=== PATIENT | female | born 1970 | race Caucasian/White ===

== ENCOUNTER 2020-03-01 14:36 | Emergency (ER) | payer SELFPAY ==
[2020-03-01 14:37] VITALS: BP 137/88; PULSE 94; RESP 18; TEMP 36.8; O2SAT 96; BMI 36.6
--- NOTE | 2020-03-01 14:44 | XR_ITS ---
WS: [id number] Lumbar spine, 3 views, 03/01/2020 Clinical Data: fall, back pain Comparison: None. Findings: No compression fractures or subluxation is seen. No disc space narrowing is seen. The transverse proc esses and SI joints are normal. There is minimal osteoarthritic spurring from L3 through L5. XR/XR lumbar spine 2-3V* [id number] Impression: Minimal osteoarthritis from L3 through L5.
--- NOTE | 2020-03-01 14:44 | XR_ITS ---
WS: [id number] Thoracic spine, 3 views, 03/01/2020 Clinical Data: fall, back pain Comparison: None. Findings: No compression fractures are seen. The disc heights are normal. The paravertebral regions are normal. XR/XR thoracic spine 3V* [id number] Impression: Negative thoracic spine.
--- NOTE | 2020-03-01 14:44 | XR_ITS ---
WS: [id number] Cervical spine, 4 views, 03/01/2020 Clinical Data: fall, neck pain Comparison: None. Findings: No compression fractures are seen. There is degenerative disc narrowing at C4-C5, C5-C6 and C6-C7. There is anterior osteoarthritic spurring from C3 through C7. There is loss of the normal pb dotic curvature.. There is no prevertebral soft tissue swelling. The odontoid is unremarkable. The so ft tissues of the neck and the lung apices are normal. XR/XR cervical spine 3V* [id number] Impression: 1. Osteoarthritis from C3 through C7. 2. Degenerative disc narrowing from C3 C4-C5 to C6-C7.
[2020-03-01 17:09] VITALS: BP 143/84; PULSE 92; RESP 18; O2SAT 98
--- NOTE | 2020-03-01 20:32 | W.ED.FALL ---
HPI - Fall General: Chief Complaint: Fall Stated Complaint: fell Time Seen by Provider: 03/01/20 16:59 History of Present Illness: HPI Narrative: Patient states that that she stepped in a hole on and fell and her neck is been sore since then. She is visiting from out of town. Has not been able see her primary care provider. Denies any radiculopathy. complaint: fall Onset (ago): day(s) Fall from: standing Fall witnessed: no Place fall occurred: other (Family residence) Loss of consciousness: None Prolonged down time: no Symptoms prior to fall: none Context: tripped/slipped Location of injury: neck Severity: mild Severity scale (1-10): 2 Quality: aching Associated symptoms-after fall: Reports no associated symptoms and neck pain (After falling on denies any pain or tingling to her fingers); Denies abdominal pain, chest pain or headache(s) Review of Systems Const: Denies: fever(s), chills or body aches Eyes: Denies: change in vision or blurry vision ENMT: Denies: throat pain or nasal congestion Card: Denies: chest pain or dyspnea on exertion Resp: Denies: dyspnea, productive cough or non-productive cough GI: Denies: abdominal pain, nausea or vomiting Musc: Reports: neck pain (After falling on denies any pain or tingling to her fingers); Denies: extremity pain Skin/Breast: Denies: rash Neuro: Denies: headache(s) Psych: Denies: anxiety or depression Zackery/Lymph: Denies: easy bruising Physical Exam Const: COMMON NORMALS: no acute distress, average body habitus and patient oriented x3 HENMT: COMMON NORMALS: normocephalic HEAD & SCALP: normal to inspection and normocephalic FACE & SINUS: normal facial exam Eye: COMMON NORMALS: conjunctivae normal GENERAL EYE: appearance normal, both eyes and all related structures CONJUNCTIVA: Yes conjunctivae normal Neck/C-Spine: COMMON NORMALS: no JVD GENERAL: Yes normal visual inspection CERVICAL SPINE: Yes cervical ROM normal, Yes normal cervical lordosis and Yes Paracervical muscle tenderness Chest: COMMONS NORMALS: normal inspection of the chest Resp: COMMON NORMALS: normal respiratory effort and clear to auscultation bilaterally AUSCULTATION: clear to auscultation bilaterally Cardio: COMMON NORMALS: no JVD, regular rate and regular rhythm RATE: regular rate RHYTHM: regular rhythm GI: COMMON NORMALS: Normal to inspection, nondistended, normoactive bowel sounds present Extremity: COMMON NORMALS: normal to inspection and full ROM Neuro: COMMON NORMALS: patient oriented x3 Course Vital Signs: Vital signs: Vital Signs Temperature 98.2 F 03/01/20 14:37 Pulse Rate 92 03/01/20 17:09 Respiratory Rate 18 03/01/20 17:09 Blood Pressure 143/84 03/01/20 17:09 Pulse Oximetry 98 03/01/20 17:09 Discharge Plan Discharge Patient Disposition: Home Clinical Impression: Neck pain Condition: Stable Prescriptions: New Celebrex 100 mg capsule 100 mg PO BID Qty: 14 RF: 0 Discharge Orders: Discharge ED (Routine); Ordered 03/01/20 Ordered By: Win Lezama Discharge Diet: Usual diet Discharge Activity: Increase activity as tolerated Patient Instructions: Cervical Sprain (ED) Activity Restrictions/Additional Instructions: follow up with your primary care provider if no iprovement in next few days. Take medicine as directed. apply ice to area as directed. Coding Level of Care Code ED Driver License Reviewing Officer for Karol Esparza
== END 2020-03-01 17:09 | disposition home or self-care (01) ==
PROVIDERS: Emergency Provider Nurse Practitioner Family
DX: M54.2 Cervicalgia (principal)
CPT/HCPCS: 12345; 72040; 72072; 72100; 99281; 99283

== ENCOUNTER 2020-10-16 20:55 | Emergency (ER) | payer SELFPAY ==
[2020-10-16 21:01] VITALS: BP 126/84; PULSE 85; RESP 18; TEMP 36.2; O2SAT 98; BMI 36.6
--- NOTE | 2020-10-16 21:08 | W.ED.EAR ---
HPI - Ear Problem General: Chief complaint: Ear Stated complaint: dizzy, ear pain Time Seen by Provider: 10/16/20 21:08 History of Present Illness: HPI Narrative: Patient comes in today with complaints of ear pain, dizziness, and sinus pressure. Patient reports illness for 2 to 3 days. Patient denies any exposure to COVID-19. Patient had only been in the area for the last 10 months and she is moved from the [place] area. Patient appears no acute distress. Patient appears mildly unwell. Patient's appears in mild pain. Associated symptoms: Reports ear or mastoid pain Review of Systems General: Reports: 10 or more systems reviewed and unremarkable except in HPI and below ENMT: Reports: ear or mastoid pain Physical Exam Const: COMMON NORMALS: no acute distress and patient oriented x3 GENERAL APPEARANCE: cooperative HENMT: COMMON NORMALS: normocephalic and Normal external nose present HEAD & SCALP: normal to inspection and normocephalic NOSE: Normal external nose present and Nasal discharge present TYMPANIC MEMBRANE: TM abnormal TM laterality: bilateral dull MOUTH: Normal oral and palatal mucosa present THROAT: posterior oropharynx normal Eye: GENERAL EYE: appearance normal, both eyes and all related structures Neck/C-Spine: COMMON NORMALS: full ROM Lymph: LYMPHATIC: no lymphadenopathy noted Chest: COMMONS NORMALS: normal inspection of the chest Resp: COMMON NORMALS: normal respiratory effort EFFORT & INSPECTION: Yes able to speak in complete sentences Cardio: COMMON NORMALS: regular rate and regular rhythm RATE: regular rate RHYTHM: regular rhythm GI: COMMON NORMALS: non-tender Extremity: COMMON NORMALS: normal to inspection Neuro: COMMON NORMALS: patient oriented x3 and moves all extremities Psych: COMMON NORMALS: mental status grossly normal and cooperative Skin: COMMON NORMALS: no rashes or lesions noted GENERAL SKIN EXAM: no rashes or lesions noted Course Vital Signs: Vital signs: Vital Signs Temperature 97.1 F L 10/16/20 21:01 Pulse Rate 85 10/16/20 21:01 Respiratory Rate 18 10/16/20 21:01 Blood Pressure 126/84 10/16/20 21:01 Pulse Oximetry 98 10/16/20 21:01 MDM - Ear MDM Narrative: Medical decision making narrative: 50-year-old female comes in with ear pain, sinus pressure, and nasal drainage for about 3 days. Patient appears mildly unwell but not toxic. On exam bilateral tympanic membranes have fluid behind them and a dull. Patient's nasal passages has congestion in it. Posterior pharynx slightly erythematous. Lungs are clear to auscultation. Vital signs are normal. Differential diagnosis includes but not limited to rhinosinusitis, otitis serous, otitis media, COVID-19. Offered a COVID-19 test patient she refused. We will treat patient for rhinosinusitis with otitis serous. Patient reports understanding of care plan and need for follow-up or return to the ER. Discharge Plan Discharge Patient Disposition: Home Clinical Impression: Acute rhinosinusitis Otitis media, acute serous Qualifiers: Laterality: bilateral Recurrence: not specified as recurrent Qualified Code(s): H65.03 - Acute serous otitis media, bilateral Acute otalgia Qualifiers: Laterality: bilateral Qualified Code(s): H92.03 - Otalgia, bilateral Condition: Stable Prescriptions: New Augmentin 875-125 mg tablet 1 tab PO BID Qty: 14 RF: 0 Flonase Allergy Relief 50 mcg/actuation spray,suspension 1 spray intranasal BID Qty: 16 RF: 0 meclizine 25 mg tablet 25 mg PO TID PRN (Reason: dizziness) Qty: 14 RF: 0 hydrocodone-acetaminophen 5-325 mg tablet 1 tab PO Q8H PRN (Reason: pain (scale score 7-10)) Qty: 5 RF: 0 No Action Celebrex 100 mg capsule 100 mg PO BID Qty: 14 RF: 0 Discharge Orders: Discharge ED (Routine); Ordered 10/16/20 Ordered By: Rudy Floyd Discharge Diet: Usual diet Discharge Activity: Increase activity as tolerated Patient Instructions: Earache (ED), Opioid Safety Activity Restrictions/Additional Instructions: Drink plenty of fluids of medications. Take antibiotics as directed. Use meclizine and Flonase to help with dizziness and sinus pain. Follow-up with primary care as needed. Return to the ER for new concerns. We have done a send out COVID-19 test for further evaluation of your symptoms to rule out COVID-19. Coding Level of Care Code ED Poultry Scalder for Karol Esparza
[2020-10-16] MEDS: HYDROcodone-acetaminophen 5-325 mg Tablet 1 TAB PO (21:36)
[2020-10-16] MEDS: meclizine 25 mg tablet PO (21:36)
[2020-10-16] MEDS: amoxicillin-clav 875-125 mg Tablet 1 TAB PO (21:36)
[2020-10-16 21:37] VITALS: BP 128/82; PULSE 64; RESP 16; O2SAT 96
== END 2020-10-16 21:48 | disposition home or self-care (01) ==
LOC: ER 21:34
PROVIDERS: Emergency Provider Nurse Practitioner Family
DX: J32.9 Chronic sinusitis, unspecified (principal); H65.03 Acute serous otitis media, bilateral
CPT/HCPCS: 99283; J8597

== ENCOUNTER 2021-04-02 17:53 | Observation (INO) | payer MEDICAID, SELFPAY ==
[2021-04-02 18:06] VITALS: BP 143/88; PULSE 134; RESP 24; TEMP 36.6; O2SAT 97; BMI 45.7
--- NOTE | 2021-04-02 18:08 | XRR_ITS ---
PROCEDURE INFORMATION: Exam: XR Chest Exam date and time: 04/02/2021 6:08 PM Age: 51 years old Clinical indication: Chest wall pain; Additional info: Chest pain TECHNIQUE: Imaging protocol: XR of the chest. Views: 1 view. COMPARISON: CR XR thoracic spine 3V* [id number] 03/01/2020 2:51 PM FINDINGS: Lungs: Lungs are clear bilaterally. Pleural spaces: No pleural effusion. No pneumothorax. Heart/Mediastinum: Stable mild enlargement of the cardiac silhouette. Mediastinal contours are unremarkable. Bones/joints: Unremarkable for age. XR/XR chest 1V portable [id number] IMPRESSION: 1. No acute cardiopulmonary process. 2. Incidental/nonacute findings are listed in the report.
--- NOTE | 2021-04-02 18:08 | ECG_ITS ---
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 Measurements Intervals [place] Rate: 166 P: NV: QRS: 6 QRSD: 84 T: 66 QT: 266 QTc: 442 Interpretive Statements ATRIAL FIBRILLATION WITH RAPID VENTRICULAR RESPONSE MODERATE ST DEPRESSION [0.05+ mV ST DEPRESSION] CRITICAL TEST RESULT No previous ECG available for comparison Electronically Signed On 04-02-2021 20:53:45 MANAGER INFORMATION by Des Sánchez M.D. [id number]
[2021-04-02] MEDS: metoprolol tartrate 50 mg Tablet PO ×2 (18:23→20:40)
[2021-04-02] MEDS: sodium chloride 0.9% 1,000 ML 999 ML IV ×3 (18:23→20:20)
[2021-04-02] MEDS: metoprolol tartrate 1 mg/1 mL SDV 5 mL 10 MG IVP (18:23)
[2021-04-02] MEDS: LORazepam 2 mg/mL INJ 1 mL IVP (18:30)
[2021-04-02] MEDS: esmolol drip 2,500 MG/250 ML PREMIX 102.06 MG IV (18:30)
[2021-04-02] MEDS: metoprolol tartrate 1 mg/1 mL SDV 5 mL 5 MG IVP ×2 (18:35→20:45)
[2021-04-02 18:48] LABS: Basophils # 0.1 10^3/uL (0.0-0.1); Basophils % 0.6 %; Eosinophils # 0.1 10^3/uL (0.0-0.8); Eosinophils % 1.2 %; Hematocrit 47.6 % (37.0-47.0); Hemoglobin 14.9 g/dL (11.5-15.3); Lymphocytes # 2.6 10^3/uL (0.8-4.8); Lymphocytes % 23.3 %; Mean Corpuscular HGB Conc 31.3 g/dL (30.0-36.0); Mean Corpuscular Volume 86.4 fl (81-99); Mean Platelet Volume 10.4 fL (7.4-10.4); Monocytes # 0.7 10^3/uL (0.2-0.9); Monocytes % 6.1 %; Neutrophils # 7.73 10^3/uL (1.8-7.7); Neutrophils % 68.5 %; Nucleated Red Blood Cells % 0 %; Platelet Count 294 10^3/cmm (130-400); Red Blood Count 5.51 10^6/uL (4.1-5.3); Red Cell Distribution Width 13.9 % (12.1-15.1); White Blood Count 11.3 10^3/uL (4.0-10.0)
[2021-04-02] MEDS: magnesium sulfate premix 2 GM/50 ML PIGGYBACK IV (18:50)
[2021-04-02 19:01] VITALS: BP 101/77; PULSE 123; RESP 26; O2SAT 96
[2021-04-02] MEDS: digoxin 250 mcg/ml INJ 2 mL IVP (19:01)
--- NOTE | 2021-04-02 19:18 | PC.NURSE ---
REPORT GIVEN TO JOSE JUAN ZAVALETA ASSUMED CARE.
[2021-04-02 19:24] LABS: Troponin(5th) Baseline 9 ng/L (0-10)
[2021-04-02 19:40] LABS: Alanine Aminotransferase 26 U/L (0-33); Albumin Level 4.7 g/dL (3.5-5.2); Alkaline Phosphatase 96 IU/L (35-105); Anion Gap 16.1 (5-19); Aspartate Amino Transferase 29 U/L (0-32); Blood Urea Nitrogen 14 mg/dL (6-20); Calcium 9.5 mg/dL (8.5-10.5); Carbon Dioxide 25 mmol/L (22-29); Chloride 102 mmol/L (98-107); Globulin 2.2 g/dL (1.3-4.6); Glucose 136 mg/dL (65-115); Osmolality Calculated 291 mOsm/kg (285-295); Potassium 4.1 mmol/L (3.5-5.1); Sodium 139 mmol/L (136-145); Thyroid Stimulating Hormone 3.29 uIU/mL (0.27-4.20); Total Bilirubin 0.2 mg/dL (0.15-1.2); Total Protein 6.9 g/dL (6.6-8.7)
--- NOTE | 2021-04-02 20:08 | ECG_ITS ---
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 Measurements Intervals [place] Rate: 87 P: NV: QRS: 9 QRSD: 84 T: 21 QT: 328 QTc: 396 Interpretive Statements ATRIAL FIBRILLATION ABNORMAL RHYTHM ECG Compared to ECG 04/02/2021 18:09:41 ST (T wave) deviation no longer present Electronically Signed On 04-03-2021 19:49:24 SKEIN BLEACHER by Ivone Blancas M.D. [id number]
[2021-04-02 20:13] LABS: D Dimer 0.43 ug/mIFEU (0-0.59)
--- NOTE | 2021-04-02 20:28 | ED_ITS ---
HPI - Chest Pain General: Chief Complaint: Chest Pain Stated Complaint: Chest Pain Time Seen by Provider: 04/02/21 18:18 Course Vital Signs: Vital signs: Vital Signs Temperature 97.8 F 04/02/21 18:06 Pulse Rate 102 H 04/02/21 21:22 Respiratory Rate 18 04/02/21 21:22 Blood Pressure 100/61 04/02/21 21:22 Pulse Oximetry 99 04/02/21 21:22 MDM - Chest Pain Lab Data : 04/02/21 18:15 04/02/21 18:15 Radiology Impressions Chest X-Ray 04/02/21 18:08 IMPRESSION: 1. No acute cardiopulmonary process. 2. Incidental/nonacute findings are listed in the report. Laboratory Results WBC 11.3 10^3/uL (4.0-10.0) H 04/02/21 18:15 RBC 5.51 10^6/uL (4.1-5.3) H 04/02/21 18:15 Hgb 14.9 g/dL (11.5-15.3) 04/02/21 18:15 Hct 47.6 % (37.0-47.0) H 04/02/21 18:15 MCV 86.4 fl (81-99) 04/02/21 18:15 MCH 27.0 pg (28.0-34.0) L 04/02/21 18:15 MCHC 31.3 g/dL (30.0-36.0) 04/02/21 18:15 RDW 13.9 % (12.1-15.1) 04/02/21 18:15 Plt Count 294 10^3/cmm (130-400) 04/02/21 18:15 MPV 10.4 fL (7.4-10.4) 04/02/21 18:15 Neut % (Auto) 68.5 % 04/02/21 18:15 Lymph % (Auto) 23.3 % 04/02/21 18:15 [place] % (Auto) 6.1 % 04/02/21 18:15 Eos % (Auto) 1.2 % 04/02/21 18:15 Baso % (Auto) 0.6 % 04/02/21 18:15 Neut # (Auto) 7.73 10^3/uL (1.8-7.7) H 04/02/21 18:15 Lymph # (Auto) 2.6 10^3/uL (0.8-4.8) 04/02/21 18:15 [place] # (Auto) 0.7 10^3/uL (0.2-0.9) 04/02/21 18:15 Eos # (Auto) 0.1 10^3/uL (0.0-0.8) 04/02/21 18:15 Baso # (Auto) 0.1 10^3/uL (0.0-0.1) 04/02/21 18:15 Nucleated RBC % (auto) 0 % 04/02/21 18:15 Nucleated RBCs # 0.0 /100WBC 04/02/21 18:15 D-Dimer 0.43 ug/mIFEU (0-0.59) 04/02/21 19:08 Sodium 139 mmol/L (136-145) 04/02/21 18:15 Potassium 4.1 mmol/L (3.5-5.1) 04/02/21 18:15 Chloride 102 mmol/L (98-107) 04/02/21 18:15 Carbon Dioxide 25 mmol/L (22-29) 04/02/21 18:15 Anion Gap 16.1 (5-19) 04/02/21 18:15 BUN 14 mg/dL (6-20) 04/02/21 18:15 Creatinine 0.8 mg/dL (0.5-0.9) 04/02/21 18:15 GFR Calculation 75.0 mL/min (90-130) L 04/02/21 18:15 Glucose 136 mg/dL (65-115) H 04/02/21 18:15 Calculated Osmolality 291 mOsm/kg (285-295) 04/02/21 18:15 Calcium 9.5 mg/dL (8.5-10.5) 04/02/21 18:15 Total Bilirubin 0.2 mg/dL (0.15-1.2) 04/02/21 18:15 AST 29 U/L (0-32) 04/02/21 18:15 ALT 26 U/L (0-33) 04/02/21 18:15 Alkaline Phosphatase 96 IU/L (35-105) 04/02/21 18:15 Troponin T Baseline 9 ng/L (0-10) 04/02/21 18:15 Total Protein 6.9 g/dL (6.6-8.7) 04/02/21 18:15 Albumin 4.7 g/dL (3.5-5.2) 04/02/21 18:15 Globulin 2.2 g/dL (1.3-4.6) 04/02/21 18:15 TSH 3.29 uIU/mL (0.27-4.20) 04/02/21 18:15 Urine Opiates Screen Negative ng/mL (Negative) 04/02/21 20:07 Ur Barbiturates Screen Negative ng/mL (Negative) 04/02/21 20:07 Ur Phencyclidine Scrn Negative ng/mL (Negative) 04/02/21 20:07 Ur Amphetamines Screen Negative ng/mL (Negative) 04/02/21 20:07 U Benzodiazepines Scrn Positive ng/mL (Negative) H 04/02/21 20:07 Urine Cocaine Screen Negative ng/mL (Negative) 04/02/21 20:07 U Marijuana (THC) Screen Negative ng/mL (Negative) 04/02/21 20:07 Discharge Plan Discharge Patient Disposition: Admitted As Inpatient Clinical Impression: Atrial fibrillation with RVR Condition: Stable Coding Level of Care Code ED Bench Worker Hollow Handle for Karol Esparza
[2021-04-02 20:31] VITALS: BP 98/75; PULSE 125; RESP 23; O2SAT 98
[2021-04-02 20:32] LABS: Amphetamines Screen Urine Negative (Negative); Barbiturates Screen Urine Negative (Negative); Benzodiazepines Screen Urine Positive (Negative); Cocaine Screen Urine Negative (Negative); Opiate Screen Urine Negative (Negative); PCP Screen Urine Negative (Negative); THC Screen Urine Negative (Negative)
[2021-04-02 21:22] VITALS: BP 100/61; PULSE 102; RESP 18; O2SAT 99
--- NOTE | 2021-04-02 21:42 | ED_ITS ---
HPI - General Adult General: Chief complaint: ER Hold Stated complaint: Chest Pain Time Seen by Provider: 04/02/21 18:18 History of Present Illness: Patient is a 51-year-old female with history of atrial fibrillation presented to emergency room with concerns of palpitation lightheadedness. Patient called EMS earlier today was noted to be have an irregular heart rate in the 180s. Patient complains of mild chest pressure with a fast heart rate. She also reports shortness of breath. Denies any nausea/vomiting, fever/chills, sharp chest pain, focal weakness in the arms or legs, or other complaints at this time. Patient reports in the past he had she has had atrial fibrillation but never heart rate in this fast. This happened about an hour ago. Denies any thyroid history, history of VTE's in the past, unilateral leg swelling or leg pain, or any recent drug use. Onset: 1 hr ago Duration:1 hr Location:home Severity:severe Associated symptoms: Reports malaise; Deny chest pain, dyspnea, nausea, rash, palpitations or vomiting Review of Systems Const: Reports: fatigue and malaise; Denies: fever(s) or chills Eyes: Denies: change in vision ENMT: Denies: mouth pain Card: Denies: chest pain or palpitations Resp: Denies: dyspnea or non-productive cough GI: Denies: abdominal pain, nausea, vomiting or diarrhea : Denies: dysuria Musc: Denies: extremity pain Skin/Breast: Denies: rash or new lesions Neuro: Reports: other (+light-headedness); Denies: weakness in extremities Psych: Reports: other (Normal mood) Zackery/Lymph: Denies: easy bruising PFSH ED PFSH: Medical History (Updated 04/05/21 @ 00:00 by ) Acute exacerbation of CHF (congestive heart failure) Atrial fibrillation with RVR High level of cardiac marker HTN (hypertension) with goal to be determined Family History (Updated 04/02/21 @ 22:49 by Ambrocio Kelley MD) Sister CAD (coronary artery disease) Stroke Social History (Updated 04/02/21 @ 22:03 by Abel Jacobs MD) Smoking and tobacco status: never smoked Alcohol intake: never Physical Exam Const: COMMON NORMALS: alert HENMT: COMMON NORMALS: atraumatic HEAD & SCALP: atraumatic MOUTH: moist mucous membranes not abnormal Eye: COMMON NORMALS: EOMs intact bilaterally and conjunctivae normal CONJUNCTIVA: Yes conjunctivae normal Neck/C-Spine: COMMON NORMALS: full ROM and supple Resp: COMMON NORMALS: normal respiratory effort and clear to auscultation bilaterally AUSCULTATION: clear to auscultation bilaterally Cardio: RATE: Other (irregular irregular tachycadia) GI: COMMON NORMALS: Soft to palpation and non-tender PALPATION: Yes Soft to palpation Extremity: COMMON NORMALS: full ROM Neuro: SENSORIUM/ORIENTATION: Yes alert MOTOR EXAM: No Abnormal motor strength present and Other motor observations present (no focal motor deficits) Psych: COMMON NORMALS: speech normal SPEECH: Yes normal speech MOOD & AFFECT: Yes euthymic mood Course Vital Signs: Vital signs: Vital Signs Temperature 98.1 F 04/03/21 17:29 Pulse Rate 87 04/04/21 14:36 Respiratory Rate 14 04/04/21 14:36 Blood Pressure 118/88 04/04/21 14:36 Pulse Oximetry 98 04/04/21 14:36 [facility] - General Adult Medical Decision Making 51-year-old female history of atrial fibrillation presents emergency room with concerns of palpitation and mild chest pain. Patient is noted to be in atrial fibrillation with heart rates in the 190s to 200s on arrival. Blood pressure appears to be sustained. Initial arrival, patient received 50 mg of IV metoprolol 50 mg of p.o. metoprolol and 3 L of fluid with and with mild improvement in heart rate to the 140s. Patient was eventually started on esmolol drip and eventually titrated to 300 mcg/kg/min. Patient also received diltiazem boluses with significant improvement in heart rate. Patient is currently off of the esmolol drip. Patient is found to have heart rates between 80-110 currently. Patient received multiple doses of Ativan for anxiety. D-dimer appears to be within normal limit. TSH/ free T4 within normal limit. Urine drug screen is negative except for benzos which was given earlier today. Delta troponin > 30 likely demand-related. Repeat EKG is non ischemic. Will be admitted for observation. Disposition: observation Lab Data : 04/04/21 06:45 04/02/21 18:15 Radiology Impressions Chest X-Ray 04/02/21 18:08 IMPRESSION: 1. No acute cardiopulmonary process. 2. Incidental/nonacute findings are listed in the report. Laboratory Results WBC 11.3 10^3/uL (4.0-10.0) H 04/02/21 18:15 RBC 5.51 10^6/uL (4.1-5.3) H 04/02/21 18:15 Hgb 14.9 g/dL (11.5-15.3) 04/02/21 18:15 Hct 47.6 % (37.0-47.0) H 04/02/21 18:15 MCV 86.4 fl (81-99) 04/02/21 18:15 MCH 27.0 pg (28.0-34.0) L 04/02/21 18:15 MCHC 31.3 g/dL (30.0-36.0) 04/02/21 18:15 RDW 13.9 % (12.1-15.1) 04/02/21 18:15 Plt Count 294 10^3/cmm (130-400) 04/02/21 18:15 MPV 10.4 fL (7.4-10.4) 04/02/21 18:15 Neut % (Auto) 68.5 % 04/02/21 18:15 Lymph % (Auto) 23.3 % 04/02/21 18:15 [place] % (Auto) 6.1 % 04/02/21 18:15 Eos % (Auto) 1.2 % 04/02/21 18:15 Baso % (Auto) 0.6 % 04/02/21 18:15 Neut # (Auto) 7.73 10^3/uL (1.8-7.7) H 04/02/21 18:15 Lymph # (Auto) 2.6 10^3/uL (0.8-4.8) 04/02/21 18:15 [place] # (Auto) 0.7 10^3/uL (0.2-0.9) 04/02/21 18:15 Eos # (Auto) 0.1 10^3/uL (0.0-0.8) 04/02/21 18:15 Baso # (Auto) 0.1 10^3/uL (0.0-0.1) 04/02/21 18:15 Nucleated RBC % (auto) 0 % 04/02/21 18:15 Nucleated RBCs # 0.0 /100WBC 04/02/21 18:15 D-Dimer 0.43 ug/mIFEU (0-0.59) 04/02/21 19:08 Sodium 139 mmol/L (136-145) 04/02/21 18:15 Potassium 4.1 mmol/L (3.5-5.1) 04/02/21 18:15 Chloride 102 mmol/L (98-107) 04/02/21 18:15 Carbon Dioxide 25 mmol/L (22-29) 04/02/21 18:15 Anion Gap 16.1 (5-19) 04/02/21 18:15 BUN 14 mg/dL (6-20) 04/02/21 18:15 Creatinine 0.8 mg/dL (0.5-0.9) 04/02/21 18:15 GFR Calculation 75.0 mL/min (90-130) L 04/02/21 18:15 Glucose 136 mg/dL (65-115) H 04/02/21 18:15 Estimat Average Glucose 128 04/02/21 18:15 Hemoglobin A1c 6.1 % (4.0-6.0) H 04/02/21 18:15 Calculated Osmolality 291 mOsm/kg (285-295) 04/02/21 18:15 Calcium 9.5 mg/dL (8.5-10.5) 04/02/21 18:15 Magnesium 2.0 mg/dL (1.7-2.3) 04/02/21 18:15 Total Bilirubin 0.2 mg/dL (0.15-1.2) 04/02/21 18:15 AST 29 U/L (0-32) 04/02/21 18:15 ALT 26 U/L (0-33) 04/02/21 18:15 Alkaline Phosphatase 96 IU/L (35-105) 04/02/21 18:15 Troponin T Baseline 9 ng/L (0-10) 04/02/21 18:15 Troponin T 120 Minute 39.02 ng/L (0-10) H 04/02/21 21:05 Delta Troponin T 30.02 ABS# (0-10) H* 04/02/21 21:05 NT-Pro-B Natriuret Pep 172 pg/mL (0-125) H 04/02/21 18:15 Total Protein 6.9 g/dL (6.6-8.7) 04/02/21 18:15 Albumin 4.7 g/dL (3.5-5.2) 04/02/21 18:15 Globulin 2.2 g/dL (1.3-4.6) 04/02/21 18:15 Triglycerides 207 mg/dL (0-150) H 04/02/21 18:15 Cholesterol 230 mg/dL (0-200) H 04/02/21 18:15 LDL Cholesterol, Calc 137 mg/dL (50-129) H 04/02/21 18:15 HDL Cholesterol 52 mg/dL (60-100) L 04/02/21 18:15 LDL/HDL Ratio 2.63 RATIO (0.00-3.22) 04/02/21 18:15 Cholesterol/HDL Ratio 4.42 mg/dL (0.0-4.40) H 04/02/21 18:15 Procalcitonin 0.04 ng/mL (0-0.5) 04/02/21 21:05 TSH 3.29 uIU/mL (0.27-4.20) 04/02/21 18:15 Free T4 0.88 ng/dL (0.82-1.77) 04/02/21 18:15 Urine Opiates Screen Negative ng/mL (Negative) 04/02/21 20:07 Ur Barbiturates Screen Negative ng/mL (Negative) 04/02/21 20:07 Ur Phencyclidine Scrn Negative ng/mL (Negative) 04/02/21 20:07 Ur Amphetamines Screen Negative ng/mL (Negative) 04/02/21 20:07 U Benzodiazepines Scrn Positive ng/mL (Negative) H 04/02/21 20:07 Urine Cocaine Screen Negative ng/mL (Negative) 04/02/21 20:07 U Marijuana (THC) Screen Negative ng/mL (Negative) 04/02/21 20:07 Imaging Data Other Imaging: Radiologist's impression: [facility] [address] [place] [address] XRay Report Signed Patient: Hannah Rizvi Unit #: [id number] : 1970 Age/Sex: 51 / F ADM Date: 04/02/21 Loc: ER Room/Bed: Attending Dr: Ordering Provider/Ordering MD: Vera Asencio Date of Service: 04/02/21 Procedure(s): XR chest 1V portable [id number] Accession Number(s): [id number] Report Number: [id number] PROCEDURE INFORMATION: Exam: XR Chest Exam date and time: 04/02/2021 6:08 PM Age: 51 years old Clinical indication: Chest wall pain; Additional info: Chest pain TECHNIQUE: Imaging protocol: XR of the chest. Views: 1 view. COMPARISON: CR XR thoracic spine 3V* [id number] 03/01/2020 2:51 PM FINDINGS: Lungs: Lungs are clear bilaterally. Pleural spaces: No pleural effusion. No pneumothorax. Heart/Mediastinum: Stable mild enlargement of the cardiac silhouette. Mediastinal contours are unremarkable. Bones/joints: Unremarkable for age. XR/XR chest 1V portable [id number] IMPRESSION: 1. No acute cardiopulmonary process. 2. Incidental/nonacute findings are listed in the report. ? Dictated By: Danielle Padgett MD Signed By: Danielle Padgett MD Signed Date/Time: 04/02/212027 DD/ 07 Critical Care Time Critical Care Time: Critical Care Time: Yes Total Critical Care Time: 45 Attestation: The high probability of a clinically significant, sudden or life threatening deterioration of the patient's cardiovascular system(s) required my full and direct attention, intervention and personal management. The critical care time is as shown. This time is in addition to time spent performing any reported procedures but includes the following: [x] Data and vital sign review and interpretation [x] Patient assessment, examination and intervention [x] Documentation [x] Medication orders and management Discharge Plan Discharge Patient Disposition: Admitted As Inpatient Admit Provider: Ambrocio Kelley Clinical Impression: Atrial fibrillation with RVR Condition: Stable Discharge Diet: Cardiac and Low Salt Discharge Activity: Increase activity as tolerated Coding Level of Care Code ED Health Promotion Officer for Chg Fwd Exam Comprehensive
[2021-04-02 21:54] LABS: Troponin 5 2HR 39.02 ng/L (0-10)
[2021-04-02 22:00] LABS: Troponin 5 2HR Delta 30.02 ABS# (0-10)
[2021-04-02 22:18] VITALS: BP 106/68; PULSE 98; RESP 16; O2SAT 94
[2021-04-02 22:22] LABS: NT Pro B Type Natriuretic Pept 172 pg/mL (0-125)
[2021-04-02] MEDS: LORazepam 1 mg Tablet PO (22:26)
[2021-04-02] MEDS: sodium chloride 0.9% 1,000 ML 125 ML IV (22:26)
[2021-04-02] MEDS: dilTIAZem ER (12HR) 60 mg Capsule PO (22:30)
--- NOTE | 2021-04-02 22:35 | PC.NURSE ---
Medication not Given per Hospitalist 5mg IV dilTIAZem not given and order changed to 2.5 and 60mg PO dose given.
--- NOTE | 2021-04-02 22:43 | PM.HP ---
Providers/Chief Complaint Chief Complaint: Chest Pain History of Present Illness Hannah Rizvi is a 51 year old female hypertension, menopausal, chronic pain, who presents to [facility] due to chest palpitations for the last month. Patient has for the last month she has been experiencing increased chest palpitations, with shortness of breath. Her symptoms lasted a few seconds, abating on their own, she did think much of her symptoms. She also had intermittent substernal chest pain, nonradiating. Today she had an episode of chest palpitation, and chest pain, that would not go away, here in the emergency room she was found to have A. fib with RVR, heart rates as high as 120s, was on maximum esmolol drip, was given 100 of p.o. metoprolol, 15 mg of IV metoprolol, 4 mg IV of Ativan, 250 IV of dig, 17.5 mg IV of diltiazem,, currently receiving 60 mg of p.o. Cardizem, heart rates in the 90s, blood pressure 106/68, 2 L, she tells me that she is feeling better. 120-minute troponin 39, delta 30 Review of Systems Const: Denies: fever(s), chills, fatigue or malaise Eyes: Denies: change in vision or blurry vision ENMT: Denies: nasal congestion Card: Reports: chest pain, palpitations and irregular heart rhythm Resp: Denies: dyspnea, productive cough, non-productive cough or wheezing GI: Denies: abdominal pain, nausea, vomiting, hematemesis, diarrhea, constipation, hematochezia or melena : Denies: flank pain, dysuria or urinary frequency Musc: Reports: back pain Skin/Breast: Denies: rash Neuro: Denies: headache(s) or dizziness Psych: Denies: anxiety or depression Endo: Denies: polyuria or polydipsia Medications/Allergies Home Medications Medication Instructions Recorded Confirmed Last Taken Type celecoxib 100 mg capsule (Celebrex) 100 mg PO BID #14 cap 03/01/20 Unknown Rx amoxicillin 875 mg-potassium 1 tab PO BID #14 tab 10/16/20 Unknown Rx clavulanate 125 mg tablet (Augmentin) fluticasone propionate 50 1 spray INTRANASAL BID #16 g 10/16/20 Unknown Rx mcg/actuation nasal spray,suspension (Flonase Allergy Relief) hydrocodone 5 mg-acetaminophen 325 1 tab PO Q8H PRN #5 tab 10/16/20 Unknown Rx mg tablet meclizine 25 mg tablet 25 mg PO TID PRN #14 tab 10/16/20 Unknown Rx Allergies Allergy/AdvReac Type Severity Reaction Status Date / Time erythromycin base Allergy ALGY-Rash Verified 04/02/21 18:06 PFSH Acute PFSH: Medical History (Updated 04/02/21 @ 22:50 by Ambrocio Kelley MD) Atrial fibrillation with RVR HTN (hypertension) with goal to be determined Family History (Updated 04/02/21 @ 22:49 by Ambrocio Kelley MD) Sister CAD (coronary artery disease) Stroke Social History (Updated 04/02/21 @ 22:03 by Abel Jacobs MD) Smoking and tobacco status: never smoked Alcohol intake: never Substance/Drug Use: never Vitals/I&O/Wt Last Vital Signs Temp 97.8 F 04/02/21 18:06 Pulse 98 04/02/21 22:18 Resp 16 04/02/21 22:18 BP 106/68 04/02/21 22:18 Pulse Ox 94 04/02/21 22:18 04/02/21 04/02/21 04/02/21 06:59 14:59 22:59 Intake Total 1084.02 / 1084.02 Balance 1084.02 / 1084.02 Weight last 48 hrs Weight 113.398 kg Physical Exam Const: COMMON NORMALS: no acute distress and patient oriented x3 HENMT: COMMON NORMALS: normocephalic HEAD & SCALP: normocephalic Neck/C-Spine: COMMON NORMALS: no JVD Resp: COMMON NORMALS: normal respiratory effort, No retractions, No use of accessory muscles and clear to auscultation bilaterally AUSCULTATION: clear to auscultation bilaterally Cardio: COMMON NORMALS: no JVD, S1 normal heart sound present and S2 normal heart sound present RATE: tachycardic RHYTHM: abnormal rhythm irregularly irregular HEART SOUNDS: S1 normal heart sound present and S2 normal heart sound present GI: COMMON NORMALS: Normal to inspection, nondistended, normoactive bowel sounds present, Soft to palpation, non-tender, No hepatosplenomegaly present, no masses and no bruits PALPATION: Yes Soft to palpation and Yes No hepatosplenomegaly present Extremity: COMMON NORMALS: capillary refill normal, no clubbing, cyanosis or edema, no calf tenderness and no pedal edema Neuro: COMMON NORMALS: patient oriented x3 Psych: COMMON NORMALS: mental status grossly normal Data : 04/02/21 18:15 04/02/21 18:15 A&P Assessment and plan (1) Atrial fibrillation with RVR: Status: Acute (2) NSTEMI (non-ST elevated myocardial infarction): Status: Acute Plan A. fib with RVR -Status post Cardizem, diltiazem, metoprolol, esmolol -continue p.o. Cardizem 60 every 6 -[id number] 2 score 2, hypertension, female, start therapeutic Lovenox -Follow-up cardiac echocardiogram NSTEMI, -Serial troponins, serial EKGs, telemetry monitoring -Aspirin, statin, therapeutic Lovenox -Likely supply demand ischemia -Cardiac echo Full code Lovenox for DVT prophylaxis Attestations Medical Necessity Statement*: Patient requires hospitalization, outpatient with observation, for A. fib with RVR Coding Level of Care Code Acute Chief Compliance Officer for Chg Fwd Diagnoses Atrial fibrillation with RVR I48.91 NSTEMI (non-ST elevated myocardial infarction) I21.4
[2021-04-02 23:46] LABS: Procalcitonin 0.04 ng/mL (0-0.5)
[2021-04-03] VITALS (9 sets, daily range): BP systolic 100–135; BP diastolic 62–79; PULSE 67–98; RESP 16–21; TEMP 36.7; O2SAT 91–97
[2021-04-03 00:49] LABS: Chol HDL Ratio 4.42 mg/dL (0.0-4.40); Cholesterol 230 mg/dL (0-200); HDL Cholesterol 52 mg/dL (60-100); LDL Cholesterol Calculated 137 mg/dL (50-129); LDL HDL Ratio 2.63 RATIO (0.00-3.22); Triglycerides 207 mg/dL (0-150)
[2021-04-03] MEDS: atorvastatin 40 mg Tablet PO ×2 (00:56→21:22)
[2021-04-03] MEDS: enoxaparin 120 mg/0.8 mL Syringe 110 MG SUBCUT ×2 (00:56→13:08)
[2021-04-03] MEDS: pantoprazole 40 mg SDV IVP (00:57)
[2021-04-03] MEDS: LORazepam 1 mg Tablet PO ×2 (02:30→21:51)
[2021-04-03 07:05] LABS: Basophils # 0.1 10^3/uL (0.0-0.1); Basophils % 0.5 %; Eosinophils # 0.1 10^3/uL (0.0-0.8); Eosinophils % 0.6 %; Hematocrit 41.1 % (37.0-47.0); Hemoglobin 13.1 g/dL (11.5-15.3); Lymphocytes # 2.9 10^3/uL (0.8-4.8); Lymphocytes % 24.3 %; Mean Corpuscular HGB Conc 31.9 g/dL (30.0-36.0); Mean Corpuscular Hemoglobin 27.8 pg (28.0-34.0); Mean Corpuscular Volume 87.3 fl (81-99); Mean Platelet Volume 9.9 fL (7.4-10.4); Monocytes # 0.7 10^3/uL (0.2-0.9); Monocytes % 5.6 %; Neutrophils # 8.28 10^3/uL (1.8-7.7); Neutrophils % 68.7 %; Nucleated Red Blood Cells % 0 %; Platelet Count 205 10^3/cmm (130-400); Red Blood Count 4.71 10^6/uL (4.1-5.3); Red Cell Distribution Width 14.2 % (12.1-15.1)
[2021-04-03] MEDS: perflutren protein-a microsphr 0.22 mg/mL SDV 3 mL IV (07:17)
[2021-04-03 07:35] LABS: INR 0.92 (0.8-1.2)
[2021-04-03 07:54] LABS: Troponin 5 6HR Delta 17.3 ng/L (0-12)
[2021-04-03 07:58] LABS: Magnesium 2.7 mg/dL (1.7-2.3); NT Pro B Type Natriuretic Pept 818 pg/mL (0-125)
[2021-04-03] MEDS: dilTIAZem 60 mg Tablet PO ×3 (09:14→21:22)
[2021-04-03] MEDS: aspirin 81 mg EC Tablet PO (09:14)
--- NOTE | 2021-04-03 09:20 | PC.NURSE ---
Medications administered, pt updated on plan of care, vss, no other needs identified at this time, will continue to monitor.
--- NOTE | 2021-04-03 10:06 | PM.PN ---
Subjective Subjective: Patient was seen and examined this morning, she does complain of orthopnea and PND clinically looks and fluid overloaded state, she recently noticed change in her voice, she has been around people who smoke a lot at home, Dr. Carrasco evaluated her as well Vitals/I&O/Wt Last Vital Signs Temp 97.8 F 04/02/21 18:06 Pulse 82 04/03/21 09:16 Resp 16 04/03/21 09:16 BP 129/72 04/03/21 09:16 Pulse Ox 93 04/03/21 09:16 04/02/21 04/03/21 04/03/21 22:59 06:59 14:59 Intake Total 1084.02 / 1084.02 Balance 1084.02 / 1084.02 Weight last 48 hrs Weight 113.398 kg Physical Exam Narrative: Clinically patient looks fluid overloaded S1, S2 Currently doing well on room air Abdomen soft distended with obesity Trace edema of legs Nonfocal neuro exam EOMI, PERRLA Data : 04/03/21 06:55 04/02/21 18:15 A&P Assessment and plan (1) Atrial fibrillation with RVR: Status: Acute (2) Acute exacerbation of CHF (congestive heart failure): Status: Acute (3) NSTEMI (non-ST elevated myocardial infarction): Status: Acute Plan New onset A. fib RVR Improved currently patient is in sinus rhythm Heart rate in 70s Potassium 4 magnesium 2.7 TSH 3.2 which is normal D-dimer unremarkable She also has acute fluid overloaded state with high BNP, EF is unknown, she does not have previous history of CHF We will add diuretics check echo Planning to keep her here overnight and possible discharge her tomorrow She might need outpatient sleep study We will do overnight pulse oximetry study A1c level is pending DVT prophylaxis Lovenox Cardiac diet Troponin leak secondary to tachyarrhythmia, no active chest pain, EKG without significant chemical infarctive changes, discontinue ACS protocol, likely type II HI she does have significant family history Attestations Medical Necessity Statement*: Possible discharge tomorrow after diuresis Time Spent in Patient Care: 20 minutes Coding Level of Care Code Acute Oil Pit Attendant for Millieg Fwd Diagnoses Atrial fibrillation with RVR I48.91 Acute exacerbation of CHF (congestive heart failure) I50.9 NSTEMI (non-ST elevated myocardial infarction) I21.4
--- NOTE | 2021-04-03 11:14 | P.CONIM_ITS ---
Providers/Reason For Consult Consulting Physician/Specialty*: Collin Carrasco MD Reason for Consult*: Atrial fibrillation with rapid ventricle response, abnormal cardiac markers, chest pain, worsening of shortness of breath. Requesting Physician: Dr. Orozco and Dr. Jose Attending Physician: Ambrocio Kelley MD History of Present Illness History of Present Illness Hannah Rizvi is a 51 year old female past medical history significant for history of premature coronary artery disease in first-degree relatives most of them had CABG before the age of 50 hyperlipidemia obesity hypertension paroxysmal atrial fibrillation presented with intermittent chest pain and atrial fibrillation with rapid ventricle response. She was treated with IV beta- malathi Cardizem and esmolol. Currently she is in sinus rhythm she was also noted to have delta increasing troponin of 36 which is fifth generation. Patient says that she is a non-smoker but for the past few days she has been noticing worsening of shortness of breath and orthopnea as well. She appeared to me she is volume overloaded. She is also giving me history of intermittent chest pressure she never had stress test or echocardiogram. Twelve-lead EKG is unremarkable. While talking to me she cannot complete sentences as she has to take of breath. Physical examination fontenot she has basal to mid inspiratory crackles. Review of Systems Const: Denies: fever(s), chills, fatigue or malaise Eyes: Denies: change in vision or blurry vision ENMT: Denies: mouth pain or nasal congestion Card: Reports: chest pain, palpitations and irregular heart rhythm Resp: Denies: dyspnea, productive cough, non-productive cough or wheezing GI: Denies: abdominal pain, nausea, vomiting, hematemesis, diarrhea, constipation, hematochezia or melena : Denies: flank pain, dysuria or urinary frequency Musc: Reports: back pain; Denies: extremity pain Skin/Breast: Denies: rash or new lesions Neuro: Reports: other (+light-headedness); Denies: headache(s), weakness in extremities or dizziness Psych: Reports: other (Normal mood); Denies: anxiety or depression Endo: Denies: polyuria or polydipsia Zackery/Lymph: Denies: easy bruising Medications/Allergies Home Medications Medication Instructions Recorded Confirmed Last Taken Type apixaban 5 mg tablet (Eliquis) 5 mg PO BID@0900,2100 #90 tab 04/04/21 Unknown Rx diltiazem HCl 120 mg 120 mg PO DAILY #60 cap 04/04/21 Unknown Rx capsule,extended release 24 hr furosemide 40 mg tablet (Lasix) 40 mg PO DAILY #90 tab 04/04/21 Unknown Rx metoprolol tartrate 25 mg tablet 12.5 mg PO BID #60 tab 04/04/21 Unknown Rx potassium chloride 20 mEq 20 meq PO DAILY #60 tab 04/04/21 Unknown Rx tablet,extended release(part/cryst) (Klor-Con M) Allergies Allergy/AdvReac Type Severity Reaction Status Date / Time erythromycin base Allergy ALGY-Rash Verified 04/03/21 08:15 Current Medications Generic Name Dose Route Start Last Admin Trade Name Freq PRN Reason Stop Dose Admin Aspirin 81 mg 04/03/21 09:00 04/03/21 09:14 Aspirin 81 Mg Ec Tablet PO 81 mg DAILY ELSA Administration Atorvastatin Calcium 40 mg 04/02/21 23:59 04/03/21 00:56 Atorvastatin 40 Mg Tablet PO 40 mg BEDTIME ELSA Administration Diltiazem HCl 60 mg 04/03/21 04:00 04/03/21 09:14 Diltiazem 60 Mg Tablet PO 60 mg Q6H ELSA Administration Enoxaparin Sodium 110 mg 04/03/21 00:30 04/03/21 00:56 Enoxaparin 120 Mg/0.8 Ml Syringe SUBCUT 110 mg Q12H ELSA Administration Pantoprazole Sodium 40 mg 04/03/21 00:30 04/03/21 00:57 Pantoprazole 40 Mg Sdv IVP 40 mg Q24H ELSA Administration PFSH Acute PFSH: Medical History (Updated 04/05/21 @ 00:00 by ) Acute exacerbation of CHF (congestive heart failure) Atrial fibrillation with RVR High level of cardiac marker HTN (hypertension) with goal to be determined Family History (Updated 04/02/21 @ 22:49 by Ambrocio Kelley MD) Sister CAD (coronary artery disease) Stroke Social History (Updated 04/02/21 @ 22:03 by Abel Jacobs MD) Smoking and tobacco status: never smoked Alcohol intake: never Vitals/I&O/Wt Last Vital Signs Temp 97.8 F 04/02/21 18:06 Pulse 82 04/03/21 09:16 Resp 16 02/09/22 09:16 BP 129/72 04/03/21 09:16 Pulse Ox 93 04/03/21 09:16 04/02/21 04/03/21 04/03/21 22:59 06:59 14:59 Intake Total 1084.02 / 1084.02 Balance 1084.02 / 1084.02 Weight last 48 hrs Weight 250 lb Physical Exam Chest: OTHER: GENERAL: Patient is alert, awake and oriented x3. NECK: No jugular vein distension. HEENT: No cyanosis. No icterus. No pallor. HEART: Regular S1 and S2. No murmur, rub or gallop. LUNGS: Inspiratory crackles bilaterally. ABDOMEN: Soft, nontender and nondistended. Positive bowel sounds. No guarding, rebound or tenderness. CENTRAL NERVOUS SYSTEM: Grossly nonfocal. EXTREMITIES: Lower extremities with 1+ edema bilaterally. Pulses palpable in the lower extremities, both dorsalis pedis and posterior tibial. Data : 04/04/21 06:45 04/02/21 18:15 A&P Assessment and plan (1) Acute exacerbation of CHF (congestive heart failure): Patient appeared to be in volume overloaded stated most likely diastolic heart failure which may have thrown her back in atrial fibrillation. I will ask for echocardiogram to assess LV function as well. I will give her IV Lasix now. (2) Atrial fibrillation with RVR: Currently she is in sinus rhythm. Continue p.o. beta-malathi 25 mg succinate with 120 mg of oral Cardizem. Continue anticoagulation in the form of Eliquis. Status: Resolved (3) High level of cardiac marker: Patient has strong family history of premature coronary artery disease he has hyperlipidemia. She has intermittent chest pain I would like to rule her out for obstructive coronary artery disease I will add statin to the regimen and will ask for Lexiscan MIBI stress test. Further plan will be devised as per pro loren of the Consult Attestations Medical Necessity Statement: Patient require continuation hospitalization for above defined care Coding Level of Care Code New Pt Acute Finger Buff Sewer for Chg Fwd Patient Type New Medical Decision Making Moderate Complexity Diagnoses Acute exacerbation of CHF (congestive heart failure) I50.9 Atrial fibrillation with RVR I48.91 High level of cardiac marker R74.8
--- NOTE | 2021-04-03 12:39 | PC.NURSE ---
Pt sts feeling more short of breath, Dr. Jacobs notified, no new orders received, will continue to monitor.
[2021-04-03] MEDS: ketorolac 30 mg/mL INJ IVP (13:04)
[2021-04-03] MEDS: acetaminophen 1,000 MG/100 ML PIGGYBACK 400 MG IV (13:08)
[2021-04-03] MEDS: FUROsemide 10 mg/mL SDV 4mL 40 MG IVP (17:53)
[2021-04-03 21:35] LABS: Estmated Average Glucose 128; Hemoglobin A1C 6.1 % (4.0-6.0)
[2021-04-03 22:01] LABS: Free T4 Free Thyroxine 0.88 ng/dL (0.82-1.77)
--- NOTE | 2021-04-03 23:59 | USCV_ITS ---
Hannah Rizvi Age: 51 Gender: F : 1970 Exam Date: 04/03/2021 06:20 Ordering Phys: Ambrocio Kelley MD Technologist: REJI Exam Location: [facility] [place] Indication: SOB BP: 150 / 80 HR: 67 Rhythm: Sinus Technical Quality: Adequate MEASUREMENTS (Male / Female) Normal Values 2D ECHO LV Diastolic Diameter PLAX 4.2 cm 4.2 - 5.9 / 3.9 - 5.3 cm LV Systolic Diameter PLAX 3.4 cm IVS Diastolic Thickness 1.3 cm 0.6 - 1.0 / 0.6 - 0.9 cm IVS Systolic Thickness 1.6 cm LVPW Diastolic Thickness 1.3 cm 0.6 - 1.0 / 0.6 - 0.9 cm LVPW Systolic Thickness 1.4 cm LVOT Diameter 2.0 cm LV Ejection Fraction 2D Teich 37.4 % LV Ejection Fraction MOD 2C 61.6 % LV Ejection Fraction 2C AL 61.9 % LA Diameter 3.3 cm LA Width 3.7 cm LA Height 3.8 cm RA Width 3.3 cm RA Height 3.2 cm Aorta at Sinotubular Diameter 2.1 cm M-MODE Aortic Annulus Diameter 2.7 cm LA Ao Ratio MM 1.3 MV E Point Septal Separation 0.9 cm DOPPLER AV Peak Velocity 157.0 cm/s LVOT Peak Velocity 98.3 cm/s AV Area Cont Eq vti 1.9 cm squared AV Area Cont Eq pk 1.9 cm squared MV Area PHT 4.0 cm squared Mitral E to A Ratio 1.2 MV E' Velocity 52.0 cm/s Mitral E to MV E' Ratio 8.9 Mitral E to LV E' Lateral Ratio 8.4 Mitral E to LV E' Septal Ratio 9.4 TR Peak Velocity 165.9 cm/s TR Peak Gradient 11.0 mmHg TR Mean Velocity 131.7 cm/s TR Mean Gradient 7.3 mmHg TR Velocity Time Integral 49.4 cm TV Peak E Velocity 55.0 cm/s PV Peak Velocity 98.0 cm/s RV Acceleration Time 0.1 s RV Ejection Time 0.3 s RV AcT/ET 0.3 FINDINGS Left Ventricle Normal left ventricular cavity size. Normal left ventricular systolic function. No regional wall motion abnormalities. Left ventricular ejection fraction is estimated at 55 %. Grade I/IV diastolic dysfunction (abnormal relaxation filling pattern), normal to mildly elevated filling pressures. Right Ventricle The right ventricle is normal in size and function. RVSP could not be calculated due to incomplete tricuspid regurgitation velocity profile. Right Atrium The right atrium is normal in size. Left Atrium The left atrium is normal in size. Mitral Valve Mildly thickened mitral valve. No mitral valve stenosis. Trace mitral valve regurgitation. Aortic Valve Moderate aortic valve calcification. No aortic valve stenosis. Trace aortic valve regurgitation. Tricuspid Valve Structurally normal tricuspid valve without significant stenosis or regurgitation. Pulmonary artery systolic pressure is normal. Pulmonic Valve Structurally normal pulmonic valve without significant stenosis. There is no pulmonic regurgitation. Pericardium Normal pericardium without effusion. Aorta Normal ascending aorta dimension. CONCLUSIONS 1-Normal left ventricular cavity size. Normal left ventricular systolic function. No regional wall motion abnormalities. Left ventricular ejection fraction is estimated at 55 %. Grade I/IV diastolic dysfunction (abnormal relaxation filling pattern), normal to mildly elevated filling pressures. 2-Mildly thickened mitral valve. No mitral valve stenosis. Trace mitral valve regurgitation. 3-Moderate aortic valve calcification. No aortic valve stenosis. Trace aortic valve regurgitation. 4-There is no pericardial effusion. 5-The right ventricle is normal in size and function. RVSP could not be calculated due to incomplete tricuspid regurgitation velocity profile. 6-Right atrial pressure is around 5 mm of mercury. 7-There are no prior echocardiogram studies to compare. Collin Carrasco MD (Electronically Signed) Final Date: 03 April 2021 19:02 S
[2021-04-04] VITALS (8 sets, daily range): BP systolic 107–140; BP diastolic 67–101; PULSE 76–100; RESP 14–26; O2SAT 92–98
[2021-04-04] MEDS: apixaban 5 mg Tablet PO ×2 (00:04→08:41)
[2021-04-04] MEDS: pantoprazole 40 mg SDV IVP (01:49)
[2021-04-04 07:13] LABS: Basophils # 0.1 10^3/uL (0.0-0.1); Basophils % 0.8 %; Eosinophils # 0.2 10^3/uL (0.0-0.8); Eosinophils % 2.4 %; Hematocrit 40.4 % (37.0-47.0); Hemoglobin 12.7 g/dL (11.5-15.3); Lymphocytes # 2.2 10^3/uL (0.8-4.8); Lymphocytes % 26.3 %; Mean Corpuscular HGB Conc 31.4 g/dL (30.0-36.0); Mean Corpuscular Hemoglobin 27.4 pg (28.0-34.0); Mean Corpuscular Volume 87.1 fl (81-99); Mean Platelet Volume 10.1 fL (7.4-10.4); Monocytes # 0.6 10^3/uL (0.2-0.9); Monocytes % 6.6 %; Neutrophils # 5.33 10^3/uL (1.8-7.7); Neutrophils % 63.7 %; Nucleated Red Blood Cells % 0 %; Platelet Count 249 10^3/cmm (130-400); Red Blood Count 4.64 10^6/uL (4.1-5.3); Red Cell Distribution Width 14.3 % (12.1-15.1); White Blood Count 8.4 10^3/uL (4.0-10.0)
[2021-04-04] MEDS: potassium chloride ER 20 mEq Tablet PO (07:15)
[2021-04-04] MEDS: FUROsemide 10 mg/mL SDV 4mL 40 MG IVP (07:15)
[2021-04-04 07:26] LABS: INR 0.94 (0.8-1.2)
--- NOTE | 2021-04-04 07:32 | PC.NURSE ---
patient resting in bed, patient on continuous bedside director of cardiac cath lab. patient to go for stress test this morning, pt NPO.
[2021-04-04 07:44] LABS: Magnesium 2.3 mg/dL (1.7-2.3); Phosphorus 3.7 mg/dL (2.5-4.5)
[2021-04-04] MEDS: dilTIAZem ER (24HR) 120 mg Capsule PO (08:40)
[2021-04-04] MEDS: aspirin 81 mg EC Tablet PO (08:41)
--- NOTE | 2021-04-04 09:37 | NMCV_ITS ---
NM virginie perf SPECT r/s* [id number] Dmitri Hannah Age: 51 Gender: F : 1970 Exam Date: 04/04/2021 11:09 Ordering Phys: Collin Carrasco MD ([email or web address]) Technologist: EMA Quiles Exam Location: [facility] Indications: CHEST PAIN STRESS TEST Please see separate stress test report in [facility] for full findings IMAGE PROTOCOL Rest/Stress 1 Lexiscan Day Radiopharmaceutical Dose (mCi) Administration Site Administered by Rest: Tc-99m 10.7 IV EMA Quiles Sestamibi Stress:Tc-99m 33.0 IV EMA Olson Sestamibi Rest: 04-Apr-2021 60 Discovery 630 Stress: 04-Apr-2021 30 Discovery 630 0.4mg Lexiscan. Images obtained in supine and prone position. SPECT RESULTS Technical Quality: Good Raw Data Analysis: Breast attenuation Image Corrections: No attenuation or motion correction applied Summed Stress Score: 4 Summed Rest Score: 7 Summed Difference Score: 0 PERFUSION FINDINGS Large area of patchy reduced tracer uptake noted in distal inferior, inferoapical and inferolateral wall on the rest images which improved over stress images suggestive of artifact FUNCTIONAL RESULTS (calculated via Gated SPECT) Stress Image LV EF (%): 75 Stress EDV (mL):96 TID: 0.8 Stress ESV (mL):24 Rest Image LV EF (%): 75 FUNCTIONAL FINDINGS: There is normal left ventricular systolic function. IMPRESSIONS This study is negative and low probability of obstructive coronary artery. EKG segment will be documented separately. Collin Carrasco MD (Electronically Signed) Final Date: 04 April 2021 12:59 S
--- NOTE | 2021-04-04 09:37 | ECG_ITS ---
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 The perfusion scan will be documented separately. DATA: Baseline heart rate was 83 beats per minute. Baseline blood pressure was 105/44 millimeters of mercury. Target heart rate was 167. Maximum heart rate achieved was 118. which was 70 % of the predicted target heart rate. Maximum blood pressure was 123/81 millimeters of mercury. The reason for ending the test was completion of the protocol. The patient did not experience any symptoms. ELECTROCARDIOGRAM: BASELINE: Sinus rhythm. Normal axis. Otherwise, no ST-T changes suggestive of ischemia noted. No arrhythmia noted. EXERCISE: After Lexiscan injection, no ST-T changes suggestive of ischemic noted. No arrhythmia noted. 1. EKG not suggestive of ischemia 2. Lexiscan injection unremarkable. 3. Perfusion scan will be documented separately. Electronically Signed On 04-04-2021 13:01:32 ELECTRONIC EQUIPMENT SET UP OPERATOR by COLLIN CARRASCO [email or web address]
--- NOTE | 2021-04-04 10:45 | PC.NURSE ---
PATIENT TO GO FOR STRESS TEST IN 1 HOUR.
--- NOTE | 2021-04-04 10:51 | P.PN_ITS ---
Subjective Subjective: She is feeling better today. She is awaiting stress test. Heart rate is under control. Output was not measured however patient told me after the Lasix she has urinated pretty good. Lungs are also clear today. Vitals/I&O/Wt Last Vital Signs Temp 98.1 F 04/03/21 17:29 Pulse 83 04/04/21 08:59 Resp 22 H 04/04/21 08:59 BP 140/101 04/04/21 07:20 Pulse Ox 97 04/04/21 08:59 04/03/21 04/04/21 04/04/21 22:59 06:59 14:59 Output Total 700 / 700 Balance -700 / -600 Weight last 48 hrs Weight 250 lb Physical Exam Chest: OTHER: GENERAL: Patient is alert, awake and oriented x3. NECK: No jugular vein distension. HEENT: No cyanosis. No icterus. No pallor. HEART: Regular S1 and S2. No murmur, rub or gallop. LUNGS: Clear to auscultate bilaterally. ABDOMEN: Soft, nontender and nondistended. Positive bowel sounds. No guarding, rebound or tenderness. CENTRAL NERVOUS SYSTEM: Grossly nonfocal. EXTREMITIES: Lower extremities without edema bilaterally. Data : 04/04/21 06:45 04/02/21 18:15 A&P Assessment and plan (1) Acute exacerbation of CHF (congestive heart failure): I will continue IV diuresis in the hospital with Lasix 40 mg and switch her to p.o. 40 mg daily along with 20 mg of potassium chloride from tomorrow. Status: Acute (2) Atrial fibrillation with RVR: I will continue p.o. calcium channel malathi, I will also combine with metoprolol 25 mg daily. Eliquis will be continued. Status: Acute (3) High level of cardiac marker: She is awaiting to go for stress test today. Further plan will be devised as per progress of the patient. Status: Acute Attestations Medical Necessity Statement*: Patient require continuation hospitalization for above event care. Coding Level of Care Code Established Pt Acute Customer Facilities Supervisor for Karol Esparza Patient Type Established History Detailed Exam Detailed Medical Decision Making Moderate Complexity Diagnoses Acute exacerbation of CHF (congestive heart failure) I50.9 Atrial fibrillation with RVR I48.91 High level of cardiac marker R74.8
[2021-04-04] MEDS: regadenoson 0.4 Mg/5 ml Syringe IVP (11:46)
--- NOTE | 2021-04-04 12:25 | PC.NURSE ---
PATIENT IN DECORATOR HAND FOR STRESS TEST.
--- NOTE | 2021-04-04 13:21 | PM.DCS ---
Discharge Providers Date of Admission: 04/03/21 06:13 Date of Discharge: April 04, 2021 Attending Provider at Admission: Ambrocio Kelley MD Attending Provider at Discharge: Collin Orozco MD Diagnoses at Discharge Discharge Diagnosis (1) Acute exacerbation of CHF (congestive heart failure): Status: Acute (2) Atrial fibrillation with RVR: Status: Acute (3) High level of cardiac marker: Status: Acute Reason for Visit Reason for Visit: Chest Pain Hospital Course Hospital Course This is admitting note by Dr. Levine: Hannah Rizvi is a 51 year old female hypertension, menopausal, chronic pain, who presents to [facility] due to chest palpitations for the last month.? Patient has for the last month she has been experiencing increased chest palpitations, with shortness of breath.? Her symptoms lasted a few seconds, abating on their own, she did think much of her symptoms.? She also had intermittent substernal chest pain, nonradiating.? Today she had an episode of chest palpitation, and chest pain, that would not go away, here in the emergency room she was found to have A. fib with RVR, heart rates as high as 120s, was on maximum esmolol drip, was given 100 of p.o. metoprolol, 15 mg of IV metoprolol, 4 mg IV of Ativan, 250 IV of dig, 17.5 mg IV of diltiazem,, currently receiving 60 mg of p.o. Cardizem, heart rates in the 90s, blood pressure 106/68, 2 L, she tells me that she is feeling better.? 120-minute troponin 39, delta 30 Hospital course Patient was admitted for management of new onset A. fib RVR, shortness of breath, orthopnea and PND, she was diagnosed with CHF exacerbation, Dr. Carrasco evaluated her and recommended IV diuretics, next day patient went for cardiac stress test which was unremarkable, EF 55%, grade 1 diastolic dysfunction, overnight pulse oximeter did show sleep apneic spells, she was requiring 2 to 3 L of oxygen at night, patient is denying smoking however endorses to secondhand smoking. 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 fib she was prescribed Cardizem along metoprolol and Eliquis. She will follow up with [facility] Most likely etiology is undiagnosed sleep apnea which is related to her new onset A. fib and CHF exacerbation. Physical Exam Narrative: GENERAL: Patient is alert, awake and oriented x3. NECK: No jugular vein distension. HEENT: No cyanosis. No icterus. No pallor. HEART: Regular S1 and S2. No murmur, rub or gallop. LUNGS: Clear to auscultate bilaterally. ABDOMEN: Soft, nontender and nondistended. Positive bowel sounds. No guarding, rebound or tenderness. CENTRAL NERVOUS SYSTEM: Grossly nonfocal. EXTREMITIES: Lower extremities without edema bilaterally. Discharge Data Studies Completed and Pending Completed Studies During Hospitalization Category Date Time Status Cardiac Stress Test MIBI [Sestamibi Stress Test Request Exams 04/04/21 09:37 Completed ] Routine XR chest 1V portable [id number] Urgent Exams 04/02/21 18:08 Completed NM virginie perf SPECT r/s* [id number] Routine Nuc Med 04/04/21 09:37 Completed CV. echo wo/w contrast [id number] Routine Ultrasound 04/03/21 23:59 Completed Pending at discharge Category Date Time Status Complete Blood Count w/Auto AM LABS Lab 04/05/21 04:00 Ordered Magnesium AM LABS Lab 04/05/21 04:00 Ordered Phosphorus AM LABS Lab 04/05/21 04:00 Ordered Prothrombin Time INR AM LABS Lab 04/05/21 04:00 Ordered Radiology Impressions Chest X-Ray 04/02/21 18:08 IMPRESSION: 1. No acute cardiopulmonary process. 2. Incidental/nonacute findings are listed in the report. Laboratory Results WBC 8.4 10^3/uL (4.0-10.0) 04/04/21 06:45 RBC 4.64 10^6/uL (4.1-5.3) 04/04/21 06:45 Hgb 12.7 g/dL (11.5-15.3) 04/04/21 06:45 Hct 40.4 % (37.0-47.0) 04/04/21 06:45 MCV 87.1 fl (81-99) 04/04/21 06:45 MCH 27.4 pg (28.0-34.0) L 04/04/21 06:45 MCHC 31.4 g/dL (30.0-36.0) 04/04/21 06:45 RDW 14.3 % (12.1-15.1) 04/04/21 06:45 Plt Count 249 10^3/cmm (130-400) 04/04/21 06:45 MPV 10.1 fL (7.4-10.4) 04/04/21 06:45 Neut % (Auto) 63.7 % 04/04/21 06:45 Lymph % (Auto) 26.3 % 04/04/21 06:45 Harlan % (Auto) 6.6 % 04/04/21 06:45 Eos % (Auto) 2.4 % 04/04/21 06:45 Baso % (Auto) 0.8 % 04/04/21 06:45 Neut # (Auto) 5.33 10^3/uL (1.8-7.7) 04/04/21 06:45 Lymph # (Auto) 2.2 10^3/uL (0.8-4.8) 04/04/21 06:45 Harlan # (Auto) 0.6 10^3/uL (0.2-0.9) 04/04/21 06:45 Eos # (Auto) 0.2 10^3/uL (0.0-0.8) 04/04/21 06:45 Baso # (Auto) 0.1 10^3/uL (0.0-0.1) 04/04/21 06:45 Nucleated RBC % (auto) 0 % 04/04/21 06:45 Nucleated RBCs # 0.0 /100WBC 04/04/21 06:45 PT 12.90 SECONDS (12.1-14.9) 04/04/21 06:45 INR 0.94 (0.8-1.2) 04/04/21 06:45 D-Dimer 0.43 ug/mIFEU (0-0.59) 04/02/21 19:08 Sodium 139 mmol/L (136-145) 04/02/21 18:15 Potassium 4.1 mmol/L (3.5-5.1) 04/02/21 18:15 Chloride 102 mmol/L (98-107) 04/02/21 18:15 Carbon Dioxide 25 mmol/L (22-29) 04/02/21 18:15 Anion Gap 16.1 (5-19) 04/02/21 18:15 BUN 14 mg/dL (6-20) 04/02/21 18:15 Creatinine 0.8 mg/dL (0.5-0.9) 04/02/21 18:15 GFR Calculation 75.0 mL/min (90-130) L 04/02/21 18:15 Glucose 136 mg/dL (65-115) H 04/02/21 18:15 Estimat Average Glucose 128 04/02/21 18:15 Hemoglobin A1c 6.1 % (4.0-6.0) H 04/02/21 18:15 Calculated Osmolality 291 mOsm/kg (285-295) 04/02/21 18:15 Calcium 9.5 mg/dL (8.5-10.5) 04/02/21 18:15 Phosphorus 3.7 mg/dL (2.5-4.5) 04/04/21 06:45 Magnesium 2.3 mg/dL (1.7-2.3) 04/04/21 06:45 Total Bilirubin 0.2 mg/dL (0.15-1.2) 04/02/21 18:15 AST 29 U/L (0-32) 04/02/21 18:15 ALT 26 U/L (0-33) 04/02/21 18:15 Alkaline Phosphatase 96 IU/L (35-105) 04/02/21 18:15 Troponin T Baseline 9 ng/L (0-10) 04/02/21 18:15 Troponin T 120 Minute 39.02 ng/L (0-10) H 04/02/21 21:05 Delta Troponin T 30.02 ABS# (0-10) H* 04/02/21 21:05 Troponin T Hi Sens 6Hr 26.30 ng/L (0-10) H 04/03/21 06:54 Troponin T Hi Sens 6Hr Delta 17.3 ng/L (0-12) H* 04/03/21 06:54 NT-Pro-B Natriuret Pep 818 pg/mL (0-125) H 04/03/21 06:55 Total Protein 6.9 g/dL (6.6-8.7) 04/02/21 18:15 Albumin 4.7 g/dL (3.5-5.2) 04/02/21 18:15 Globulin 2.2 g/dL (1.3-4.6) 04/02/21 18:15 Triglycerides 207 mg/dL (0-150) H 04/02/21 18:15 Cholesterol 230 mg/dL (0-200) H 04/02/21 18:15 LDL Cholesterol, Calc 137 mg/dL (50-129) H 04/02/21 18:15 HDL Cholesterol 52 mg/dL (60-100) L 04/02/21 18:15 LDL/HDL Ratio 2.63 RATIO (0.00-3.22) 04/02/21 18:15 Cholesterol/HDL Ratio 4.42 mg/dL (0.0-4.40) H 04/02/21 18:15 Procalcitonin 0.04 ng/mL (0-0.5) 04/02/21 21:05 TSH 3.29 uIU/mL (0.27-4.20) 04/02/21 18:15 Free T4 0.88 ng/dL (0.82-1.77) 04/02/21 18:15 Urine Opiates Screen Negative ng/mL (Negative) 04/02/21 20:07 Ur Barbiturates Screen Negative ng/mL (Negative) 04/02/21 20:07 Ur Phencyclidine Scrn Negative ng/mL (Negative) 04/02/21 20:07 Ur Amphetamines Screen Negative ng/mL (Negative) 04/02/21 20:07 U Benzodiazepines Scrn Positive ng/mL (Negative) H 04/02/21 20:07 Urine Cocaine Screen Negative ng/mL (Negative) 04/02/21 20:07 U Marijuana (THC) Screen Negative ng/mL (Negative) 04/02/21 20:07 Vitals Last Vital Signs Temp 98.1 F 04/03/21 17:29 Pulse 100 04/04/21 11:47 Resp 22 H 04/04/21 08:59 BP 116/78 04/04/21 11:47 Pulse Ox 97 04/04/21 08:59 Discharge Plan Discharge Patient Disposition: Home Condition: Stable Prescriptions: New Klor-Con M20 20 mEq Tablet,Er Particles/Crystals 20 meq PO DAILY Qty: 60 1RF diltiazem HCl 120 mg Capsule,Extended Release 24hr 120 mg PO DAILY Qty: 60 3RF Eliquis 5 mg Tablet 5 mg PO BID@0900,2100 Qty: 90 4RF Lasix 40 mg tablet 40 mg PO DAILY Qty: 90 3RF metoprolol tartrate 25 mg tablet 12.5 mg PO BID Qty: 60 1RF Discontinued ibuprofen 200 mg Tablet 400 mg PO Q6H PRN (Reason: Pain) 0RF Discharge Orders: Discharge Order (Routine); Ordered 04/04/21 Ordered By: Collin Orozco Other Ambulatory Orders: Sleep Study/Titration (Routine) Timeframe: 1 Week Facility: [facility] - Location: [facility] Ordered By: Collin Orozco DME: Oxygen (Order) Location: None Selected Ordered By: Collin Orozco Referrals: Verónica Israel FNP [Nurse Practitioner] - 4-7 days Ivone Blancas MD [Physician] - 6 Weeks Discharge Diet: Cardiac and Low Salt Discharge Activity: Increase activity as tolerated Patient Instructions: Opioid Safety Activity Restrictions/Additional Instructions: Follow-up with Verónica in 7 days. Follow-up with Dr. Del Toro in 6 to 8 weeks. Check BMP in 10 days. Keep a log of blood pressure and daily weight. If you gain more than 3 pounds in 2 consecutive days take extra water pill. Discharge Attestations Time Spent in Discharge Care*: less than 30 min Quality Metrics Clinical Quality Measures [ No reported AMI, CVA or VTE this stay] Coding Level of Care Code Acute Chg FW DC note Diagnoses Acute exacerbation of CHF (congestive heart failure) I50.9 Atrial fibrillation with RVR I48.91 High level of cardiac marker R74.8
== END 2021-04-04 17:31 | disposition home or self-care (01) ==
LOC: ER 04-03 04:35 → ER IP 04-03 06:13
PROVIDERS: Physician Assistant; Admitting Provider Family Medicine; Emergency Provider Emergency Medicine; Visit Provider Internal Medicine
DX: I48.91 Unspecified atrial fibrillation (principal); I11.0 Hypertensive heart disease with heart failure; I50.9 Heart failure, unspecified; R74.8 Abnormal levels of other serum enzymes; Z99.81 Dependence on supplemental oxygen; Z79.82 Long term (current) use of aspirin; I21.4 Non-ST elevation (NSTEMI) myocardial infarction; G47.34 Idiopathic sleep related nonobstructive alveolar hypoventilation; G47.30 Sleep apnea, unspecified
CPT/HCPCS: 36415; 71045; 78452; 80053; 80061; 80306; 83036; 83735; 83880; 84100; 84145; 84439; 84443; 84484; 85025; 85378; 85610; 93005; 93017; 94762; 96365; 96366; 96367; 96372; 96375; 99285; A9500; C8929; C9113; G0378; J1160; J1650; J1885; J1940; J2060; J2785; J3475; J3490; J7030; Q9956

== ENCOUNTER → 2021-05-15 11:10 | Outpatient (BNVA) | payer MEDICAID, SELFPAY | PROVIDERS: Visit Provider Nurse Practitioner Family | DX: I10 Essential (primary) hypertension (principal); I48.91 Unspecified atrial fibrillation; Z09 Encounter for follow-up examination after completed treatment for conditions other than malignant neoplasm | CPT/HCPCS: 80048; 83880 ==

== ENCOUNTER → 2021-06-21 09:34 | Outpatient (BNVA) | payer MEDICAID, SELFPAY | PROVIDERS: Visit Provider Internal Medicine Cardiovascular Disease | DX: I48.20 Chronic atrial fibrillation, unspecified (principal); I10 Essential (primary) hypertension; Z87.891 Personal history of nicotine dependence; Z79.01 Long term (current) use of anticoagulants | CPT/HCPCS: 99213 ==

== ENCOUNTER 2021-07-14 15:33 | Emergency (ER) | payer MEDICAID, SELFPAY ==
[2021-07-14 15:46] VITALS: BP 151/88; PULSE 70; RESP 20; TEMP 36.9; O2SAT 96; BMI 42.0
--- NOTE | 2021-07-14 16:05 | ED_ITS ---
HPI - Skin/Abscess/Foreign Bdy General: Chief complaint: Skin/Abscess/Foreign Body Stated complaint: Rash Time Seen by Provider: 07/14/21 15:51 Source: patient Mode of arrival: ambulatory Limitations: no limitations History of Present Illness: This patient comes to the emergency department because of concern about a rash that began sometime last night and is progressed today. She states it began on in various locations as small red spots and the now is in varying locations and varying sizes. She states it is itching and burning. She denies any difficulty with breathing, swallowing or other symp toms. She states she was recently sick the last couple of days with fever yesterday but no fever today. She has some loose stools today but is able to eat and drink otherwise. She states her children have been sick with upper respiratory symptoms as well. She denies cough, shortness of breath, vomiting etc. She has chronic atrial fibrillation and is taking her usual prescribed medications. No new medications. No insect bites that she is aware. No tics removed recently. No recent travel. Her children are not affected by this condition. She has had no environmental changes to include no new pets, new cosmetics, soaps etc. She denies other constitutional complaints. MD complaint: rash Location: generalized Severity: moderate Quality: burning and pruritic Relieving factors: none Context: none Associated symptoms: Reports itching; Deny chills, nausea or vomiting Treatments prior to arrival: none Review of Systems Const: Denies: chills, body aches, change in appetite or change in weight Eyes: Denies: change in vision or eye redness ENMT: Denies: throat pain, odynophagia or nasal congestion Card: Denies: chest pain, palpitations or edema Resp: Denies: dyspnea, productive cough, non-productive cough or wheezing GI: Denies: abdominal pain, nausea, vomiting, hematochezia or melena : Denies: flank pain, difficulty voiding, dysuria or urinary frequency Musc: Denies: neck pain, back pain, extremity pain, extremity swelling, joint pain or joint swelling Skin/Breast: Reports: rash, pruritus and erythema Neuro: Denies: numbness in extremities or weakness in extremities Endo: Denies: polyuria, polydipsia or tired all the time All/Imm: Denies: throat swelling, tongue swelling, facial swelling, itchy eyes or seasonal rhinorrhea PFSH ED PFSH: Medical History Acute exacerbation of CHF (congestive heart failure) Atrial fibrillation with RVR High level of cardiac marker HTN (hypertension) with goal to be determined Family History Sister CAD (coronary artery disease) Stroke Mother Colon cancer Social History Smoking and tobacco status: former smoker (30+ years ago) Alcohol intake: never Physical Exam Narrative: EXAM NARRATIVE: Patient is alert and makes good eye contact. She answers questions in a normal voice in goal-directed fashion. Const: COMMON NORMALS: no acute distress, patient oriented x3 and alert NUTRITIONAL APPEARANCE: overweight HENMT: COMMON NORMALS: normocephalic, atraumatic, Normal nasal mucous membranes and turbinates present, moist oral mucous membranes and oropharynx normal HEAD & SCALP: normocephalic and atraumatic FACE & SINUS: normal facial exam, sinuses nontender and face symmetric NOSE: Normal nasal mucous membranes and turbinates present Eye: COMMON NORMALS: Equal, round and reactive pupils present, EOMs intact bilaterally and conjunctivae normal CONJUNCTIVA: Yes conjunctivae normal PUPIL: Yes Equal, round and reactive pupils present Neck/C-Spine: COMMON NORMALS: full ROM, no lymphadenopathy, supple, no meningeal signs and no JVD Lymph: LYMPHATIC: no lymphadenopathy noted Resp: COMMON NORMALS: normal respiratory effort, No retractions, No use of accessory muscles and clear to auscultation bilaterally AUSCULTATION: clear to auscultation bilaterally Cardio: COMMON NORMALS: no JVD, regular rate, No murmurs present (Cardio) and Peripheral pulses 2+ throughout RATE: regular rate PERIPHERAL PULSES: P eripheral pulses 2+ throughout GI: COMMON NORMALS: Normal to inspection, nondistended, normoactive bowel sounds present : COMMON NORMALS: Yes no CVA tenderness BLADDER/KIDNEY EXAM: Yes no CVA tenderness Back/Pelvis: COMMON NORMALS: no CVA tenderness, thoracic and lumbar spine normal to inspection, no thoracic nor lumbar tenderness and thoraco-lumbar ROM normal Extremity: COMMON NORMALS: normal to inspection, full ROM, capillary refill normal, no joint enlargement, no calf tenderness and no pedal edema Neuro: COMMON NORMALS: patient oriented x3, moves all extremities, no focal motor deficits, no sensory deficits noted and deep tendon reflexes 2+ bilaterally SENSORIUM/ORIENTATION: Yes alert MENINGEAL SIGNS: Yes no meningeal signs Psych: COMMON NORMALS: mental status grossly normal Skin: COMMON NORMALS: turgor normal GENERAL SKIN EXAM: turgor normal LESIONS: lesion noted OTHER: Patient has generalized raised erythematous papules of varying diameter. They are located on most skin surfaces with exception of her face and head. There is no palmar or sole involvement. There is no petechiae, there is no target eating lesions. There is no vesicles. No significant excoriation. No confluent erythema. Course Vital Signs: Vital signs: Vital Signs Temperature 98.5 F 07/14/21 15:46 Pulse Rate 70 07/14/21 15:46 Respiratory Rate 20 H 07/14/21 15:46 Blood Pressure 151/88 07/14/21 15:46 Pulse Oximetry 96 07/14/21 15:46 MDM - Skin/Abscess/Foreign Bdy Medicial Decision Making Current clinical picture is consistent with urticaria. At this time no evidence to suggest primary infection or secondary cellulitis. Certainly does not suggest a more worrisome etiology at this time. We will go and place her on steroids as well as antihistamines. Discussed expected course and detailed return precautions. Differential Diagnosis Likely urticaria Medical Records I reviewed the patient's medical records. Lab Data I reviewed the patient's lab results. Discharge Plan Discharge Patient Disposition: Home Clinical Impression: Urticaria Condition: Stable Prescriptions: New prednisone 20 mg tablet 20 mg PO Q12H Qty: 20 0RF hydroxyzine HCl 25 mg tablet 25 mg PO Q6H PRN (Reason: itching) Qty: 30 0RF No Action buspirone 7.5 mg tablet 7.5 mg PO BID Qty: 60 0RF Klor-Con M20 20 mEq tablet,ER particles/crystals 20 meq PO DAILY Qty: 60 1RF diltiazem HCl 120 mg Capsule,Extended Release 24hr 120 mg PO DAILY Qty: 60 3RF Eliquis 5 mg Tablet 5 mg PO BID@0900,2100 Qty: 90 4RF Lasix 40 mg tablet 40 mg PO DAILY Qty: 90 3RF Discharge Orders: Discharge ED (Routine); Ordered 07/14/21 Ordered By: Aleksander Jovel Discharge Diet: Usual diet Discharge Activity: Increase activity as tolerated Patient Instructions: Urticaria (ED), Opioid Safety Activity Restrictions/Additional Instructions: Continue all your usual medications. Take the new medications we have prescribed to help with your itching and hives. As we discussed this should steadily improve over the next several days. If you continue to have worsening or persistent symptoms or develop new symptoms of any kind return to this or the nearest emergency department immediately. Coding Level of Care Code ED Onshore Diver for Karol Esparza
[2021-07-14] MEDS: hyDROXYzine 25 mg Capsule 50 MG PO (16:29)
[2021-07-14] MEDS: predniSONE 20 mg Tablet 40 MG PO (16:29)
== END 2021-07-14 17:22 | disposition home or self-care (01) ==
PROVIDERS: Emergency Provider Emergency Medicine
DX: L50.9 Urticaria, unspecified (principal)
CPT/HCPCS: 99283; J7512

== ENCOUNTER → 2022-04-10 11:37 | Outpatient (BNVA) | payer MEDICAID, SELFPAY | PROVIDERS: Visit Provider Nurse Practitioner Family | DX: I11.0 Hypertensive heart disease with heart failure (principal); I50.30 Unspecified diastolic (congestive) heart failure; I48.91 Unspecified atrial fibrillation; Z87.891 Personal history of nicotine dependence | CPT/HCPCS: 80048; 80061; 83880; 85025; 85378; 99214 ==

== ENCOUNTER → 2022-04-24 10:30 | Outpatient (BNVA) | payer MEDICAID, SELFPAY | PROVIDERS: Visit Provider Nurse Practitioner Family | DX: I48.91 Unspecified atrial fibrillation (principal); I11.0 Hypertensive heart disease with heart failure; I50.30 Unspecified diastolic (congestive) heart failure; Z87.891 Personal history of nicotine dependence; Z79.01 Long term (current) use of anticoagulants; R06.00 Dyspnea, unspecified | CPT/HCPCS: 99214 ==

== ENCOUNTER → 2022-04-24 10:30 | Outpatient (BNVA) | payer MEDICAID, SELFPAY | PROVIDERS: Visit Provider Nurse Practitioner Family | DX: I50.30 Unspecified diastolic (congestive) heart failure (principal); I48.91 Unspecified atrial fibrillation; G47.30 Sleep apnea, unspecified; I10 Essential (primary) hypertension; G47.34 Idiopathic sleep related nonobstructive alveolar hypoventilation; R06.09 Other forms of dyspnea | CPT/HCPCS: 36415; 80048; 83880 ==

== ENCOUNTER 2022-05-02 15:09 | Outpatient (CLI) | payer MEDICAID, SELFPAY ==
--- NOTE | 2022-05-02 16:00 | USCV_ITS ---
Hannah Rizvi Age: 52 Gender: F : 1970 Exam Date: 05/02/2022 16:03 Ordering Phys: Verónica Israel Technologist: Merari Martinez Exam Location: [facility] [place] Indication: worsening dyspnea with exertion, BNP elevated BP: 122 / 90 HR: 83 Rhythm: Sinus Technical Quality: Adequate MEASUREMENTS (Male / Female) Normal Values 2D ECHO LV Diastolic Diameter PLAX 4.3 cm 4.2 - 5.9 / 3.9 - 5.3 cm LV Systolic Diameter PLAX 3.2 cm IVS Diastolic Thickness 1.1 cm 0.6 - 1.0 / 0.6 - 0.9 cm IVS Systolic Thickness 1.2 cm LVPW Diastolic Thickness 0.6 cm 0.6 - 1.0 / 0.6 - 0.9 cm LVPW Systolic Thickness 1.0 cm LVOT Diameter 2.0 cm LV Ejection Fraction 2D Teich 49.4 % LV Ejection Fraction MOD 2C 54.2 % LV Ejection Fraction 2C AL 53.6 % LA Diameter 2.8 cm LA Width 3.0 cm LA Height 5.0 cm RA Width 2.7 cm RA Height 4.2 cm Aorta at Sinotubular Diameter 2.5 cm IVC Diameter 1.7 cm M-MODE MV E Point Septal Separation 0.9 cm DOPPLER AV Peak Velocity 176.0 cm/s LVOT Peak Velocity 110.0 cm/s AV Area Cont Eq vti 2.2 cm squared AV Area Cont Eq pk 2.0 cm squared MV Peak Velocity 123.0 cm/s MV Area PHT 4.4 cm squared Mitral E to A Ratio 0.9 MV E' Velocity 57.0 cm/s Mitral E to MV E' Ratio 10.9 Mitral E to LV E' Lateral Ratio 10.3 Mitral E to LV E' Septal Ratio 11.8 TR Peak Velocity 146.3 cm/s TR Peak Gradient 8.6 mmHg Right Atrial Pressure 5.0 mmHg Pulmonary Artery Systolic Pressu 13.6 mmHg PV Peak Velocity 100.0 cm/s RV Acceleration Time 0.2 s RV Ejection Time 0.3 s RV AcT/ET 0.6 FINDINGS Left Ventricle Normal left ventricular size and systolic function, EF 68 %. No regional wall motion abnormalities. Grade I/IV diastolic dysfunction (abnormal relaxation filling pattern), normal to mildly elevated filling pressures. Right Ventricle The right ventricle is normal in size and function. Right Atrium The right atrium is normal in size. Left Atrium Mildly increased left atrial size. Mitral Valve No gross abnormalities noted Aortic Valve Thickened aortic valve. Tricuspid Valve No gross abnormalities noted Pulmonic Valve Structurally normal pulmonic valve without significant stenosis. There is no pulmonic regurgitation. Pericardium Normal pericardium without effusion. Aorta Normal ascending aorta dimension. IVC Normal inferior vena cava. CONCLUSIONS Normal left ventricular size and systolic function, EF 68 %. No regional wall motion abnormalities. Grade I/IV diastolic dysfunction (abnormal relaxation filling pattern), normal to mildly elevated filling pressures. Thickened aortic valve. Mildly increased left atrial size. There is no pericardial effusion. There are no intracardiac masses. Compared to the study from 04/03/2021, there may not be a significant change Dr Terrence Zambrano MD FAC (Electronically Signed) Final Date: 06 May 2022 10:20 S
== END 2022-05-02 15:10 | disposition home or self-care (01) ==
PROVIDERS: Visit Provider Nurse Practitioner Family
DX: R06.09 Other forms of dyspnea (principal); R79.89 Other specified abnormal findings of blood chemistry; I35.8 Other nonrheumatic aortic valve disorders
CPT/HCPCS: 93306

== ENCOUNTER 2022-05-19 10:51 | Outpatient (CLI) | payer MEDICAID, SELFPAY ==
[2022-05-19 11:08] VITALS: PULSE 87; RESP 20; O2SAT 97
[2022-05-19] MEDS: albuterol 2.5 mg/3 mL Neb INHALATION (11:08)
[2022-05-19 11:13] VITALS: PULSE 77
[2022-05-19 11:30] VITALS: BP 130/86
== END 2022-05-19 10:52 | disposition home or self-care (01) ==
LOC: RT 10:57
PROVIDERS: Visit Provider Nurse Practitioner Family
DX: I48.91 Unspecified atrial fibrillation (principal); I10 Essential (primary) hypertension; I50.30 Unspecified diastolic (congestive) heart failure
CPT/HCPCS: 94060; 94618; 94729; J7613

== ENCOUNTER → 2022-05-29 13:43 | Outpatient (BNVA) | payer MEDICAID, SELFPAY | PROVIDERS: Visit Provider Nurse Practitioner Family | DX: I11.0 Hypertensive heart disease with heart failure (principal); I50.30 Unspecified diastolic (congestive) heart failure; I48.91 Unspecified atrial fibrillation; J45.909 Unspecified asthma, uncomplicated; Z79.01 Long term (current) use of anticoagulants; Z87.891 Personal history of nicotine dependence | CPT/HCPCS: 99214 ==

== ENCOUNTER 2022-05-30 07:36 | Outpatient (CLI) | payer MEDICAID, SELFPAY ==
[2022-05-30 07:48] VITALS: BMI 46.4
--- NOTE | 2022-05-30 07:48 | ECG_ITS ---
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 Interpretive Statements NAME OF STUDY: LEXISCAN SESTAMIBI STRESS TEST INDICATION: [Shortness of Breath, ] Procedure: At the baseline, the blood pressure was 121/66 mmHg with a heart rate of 75 bpm. The electrocardiogram showed normal sinus rhythm, normal axis with normal ST and T's. The Lexiscan was infused over a period of 20 seconds. A total of 0.4 mg of Lexiscan was infused. The stress phase was continued for a total of 5 minutes. Heart rate was at the end of stress phase was 95 bpm and a blood pressure of 106/81 mmHg. The EKG at the peak infusion revealed normal sinus rhythm with no significant ST-T wave changes. Sestamibi was injected 20 seconds after the Lexiscan infusion. Blood pressure at the end of recovery phase was 102/77 mmHg with a heart rate of 93 bpm. Conclusion: 1. Normal EKG response to Lexiscan infusion 2. No Lexiscan induced chest pain or cardiac arrhythmia. 3. Normal blood pressure and heart rate response. 4. Sestamibi/sestamibi perfusion scan pending; see separate report. Electronically Signed On 06-01-2022 15:21:50 CDT by Des Sánchez M.D. [email or web address]
--- NOTE | 2022-05-30 07:48 | NMCV_ITS ---
NM virginie perf SPECT r/s* [id number] Hannah Rizvi Age: 52 Gender: F : 1970 Exam Date: 05/30/2022 09:02 Ordering Phys: Verónica Israel Technologist: EMA Quiles Exam Location: [facility] Indications: CONGESTIVE HEART FAILURE, A FIB STRESS TEST [facility] IMAGE PROTOCOL Rest/Stress 1 Lexiscan Day Radiopharmaceutical Dose (mCi) Administration Site Administered by Rest: Tc-99m 10.5 IV Kahlil Mariscal, COMPLIANCE ENGINE[employer]CTS Sestamibi Stress:Tc-99m 32.3 IV Kahlil Mariscal, COMPLIANCE ENG[employer] Sestamibi Rest: 30-May-2022 60 Discovery 630 Stress: 30-May-2022 30 Discovery 630 0.4mg Lexiscan. Images obtained in supine and prone position. SPECT RESULTS Technical Quality: Excellent Raw Data Analysis: Normal, Breast attenuation Image Corrections: No attenuation or motion correction applied Summed Stress Score: 8 Summed Rest Score: 2 Summed Difference Score: 7 PERFUSION FINDINGS There is large in size mostly reversible perfusion defect noted on apical lateral and inferolateral grant. Defect improves on prone imaging. 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 However attenuation artifact cannot be ruled out. Clinical correlation is needed. FUNCTIONAL RESULTS (calculated via Gated SPECT) Stress Image LV EF (%): 60 Stress EDV (mL):67 TID: 1.09 Stress ESV (mL):27 FUNCTIONAL FINDINGS: There is normal left ventricular systolic function. IMPRESSIONS 1. Perfusion abnormality is noted in the apical lateral and inferolateral grant. 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 However defect improves on prone imaging. Cannot rule out attenuation artifact. Clinical correlation is required. 2. LV systolic function is normal. Des Sánchez MD (Electronically Signed) Final Date: 07 June 2022 13:29 S
[2022-05-30] MEDS: regadenoson 0.4 Mg/5 ml Syringe IVP (10:09)
[2022-05-30 10:20] VITALS: BP 102/77; PULSE 92
== END 2022-05-30 07:37 | disposition home or self-care (01) ==
LOC: CDL 07:38
PROVIDERS: Visit Provider Nurse Practitioner Family
DX: R06.02 Shortness of breath (principal); I50.9 Heart failure, unspecified; I48.91 Unspecified atrial fibrillation
CPT/HCPCS: 36415; 78452; 80048; 83880; 93017; 96374; A9500; J2785

== ENCOUNTER 2022-07-28 09:07 | Outpatient (CLI) | payer MEDICAID, SELFPAY ==
[2022-07-28] VITALS (30 sets, daily range): BP systolic 111–130; BP diastolic 77–100; PULSE 74–120; RESP 13–23; TEMP 36.7; O2SAT 95; BMI 46.4
--- NOTE | 2022-07-28 09:00 | XACV_ITS ---
Exam Room: 2 Ht: 157 cm Wt: 115 kg BSA: 2.32 m2 Gender: Female : 1970 Exam Priority: Routine Procedure(s): Procedure Description: Diagnostic procedure Procedure Description: Left Heart Catheterization Procedure Description: Left ventriculography Procedure Description: Coronary Angiography Diagnostic Cath Status: Elective Diagnostic Findings * INDICATION: 52-year-old woman who has been having dyspnea on exertion. Was found to have abnormal stress test. Given persistent symptoms and abnormality on stress test, decision made to perform coronary angiogram with possible PCI.. * No significant disease noted in the Left Main, Left Anterior Descending, Right, or Circumflex coronary arteries. * Coronary angiography shows left dominance. Conclusions 1. No significant disease noted in the Left Main, Left Anterior Descending, Right, or Circumflex coronary arteries. 2. Normal left ventricular systolic function. Ejection fraction of 65%. Recommendations * Aggressive risk factor modification. * Outpatient cardiology follow-up in 4 weeks. Interventional RX Recommendation: medical therapy and/or counseling Diagnostic RX Recommendation: medical therapy and/or counseling Anticoagulation: Heparin Ventriculography Ejection Fraction: 65.0 % Pressures Phase:Rest AO : 157 / 91 ( 120 ) @ 12:46:00 PM 155 / 92 ( 120 ) @ 12:46:00 PM LV : 170 / -6 / 30 @ 12:45:00 PM 160 / 4 / 30 @ 12:46:00 PM 157 / 4 / 31 @ 12:46:00 PM Valves Phase:DefaultPhase AV : 3.0 @ 11:50:45 AM AV Mean Gradient: 24.0 @ 11:50:45 AM 24.0 @ 11:50:45 AM Clinical Evaluation EBL: 5mL-10mL Procedural Details Procedure Consent Obtained. Admit Source: Out Patient. Pre-Procedure Time Out. Identified patient by full name and date of as verbalized by the patient/guarantor. Does the consent match the physician's order: Yes. Accurate & Complete Informed Consent: Yes. Inpatient/Outpatient History & Physical on Chart: Yes. If H&P is completed, is and addenduem needed: No; If yes, is the addendum complete: N/A. Visualize and Verify Site with Patient/Guarantor: N/A. Relevant Radiology Images available: N/A. Pre-op teaching completed and patient verbalized understanding. The risks, benefits, and alternatives of sedation and/or procedure were discussed by physician. The patient agrees to continue. Procedure started. [facility] Clinical Fraility Score: 3: Managing Well. Media Services Specialist Indications: Worsening Angina, Positive Stress Test. Chest Pain Symptom Assessment: Typical Angina Symptoms. Correct patient, site and procedure confirmed by cath team. Current diagnosis: Chest Pain. PERRLA. 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 Lungs clear x 5 lobes. IV Site on Arrival: 22 gauge in the left anticubital. IV Fluids: 0.9% NaCl at KVO. 0 mL infused prior to labeling specialist. Pre Procedural Pulses: bilateral radial was 2+. Pre Procedural Pulses: bilateral dorsalis pedis was 2+. Oxygen started at 2liters/min via nasal canula. right groin was prepped with chloroprep then draped in the usual sterile fashion. right radial was prepped with chloroprep then draped in the usual sterile fashion. Physician notified. Baseline sample Acquired. HR: 93 BPM. Physician arrived. Physician scrubbed in. Immediate Pre-Procedure Time Out. Correct Patient: Yes; Correct Procedure: Yes; Correct Site: Yes; Correct Patient Position: Yes; Correct Supplies: Yes; Dried Flammable Prep: Yes; Blood Products Available: N/A;. Lidocaine 1% infiltrated to the right radial. Arterial access obtained. A 5 nigerian TIG catheter in over wire. Multiple views taken of right coronary artery. Catheter redirected to the LCA. Multiple views taken of left coronary artery. Catheter removed over the exchange wire. EDP Sample taken: LV 170/-7,30; HR: 98 BPM; SpO2: 96%. LV gram performed in MUNOZ @ 10 mL/second for a total of 30 mL. EDP Sample taken: LV 160/4,30; HR: 94 BPM; SpO2: 97%. Pullback taken: LV 157/4,31; AO 157/91(120); Mean: 24mmHg, Peak to Peak: 3mmHg, SEP: 10sec/min; HR: 94 BPM; SpO2: 96%. A 5 nigerian Angled Pig catheter in over wire. Catheter out. A TR Band was successful obtaining hemostatsis at the Right Radial artery insertion site. Post Procedure: Pulses reassessed and unchanged. PERRLA. 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 No VTE prophylaxis required. Medication's Wasted: Heparin = 1000 u. Medication's Wasted: Lidocaine 1% = 1 mL. Medication's Wasted: Nitro = 49.8 mg. Medication's Wasted: Other = Versed 1 mg. Total IV fluids: 25 mL. Post-op diagnosis: Non Obstructive CAD. Complications: none. Estimated blood loss: 5mL-10mL. Responsiveness - Normal response to verbal stimuli; alert and oriented, PERRLA. Airway - Unaffected, no intervention required; spontaneous ventilation. Circulation: W/N/L, pulses unchanged. Nausea/Vomiting: No. Procedure completed. Patient transferred by wheelchair to 1st floor. Vital chart was stopped. Access Site Site: Right Radial artery Sheath Size: 6 Fr Hemostasis Method: TR Band Hemostasis Success: Successful Procedure Medications Start: 11:36 AM Stop: 11:36 AM Medication: Versed Amount: 2 mg Route: I.V. Start: 11:37 AM Stop: 11:37 AM Medication: Fentanyl Amount: 50 mcg Route: I.V. Start: 11:39 AM Stop: 11:39 AM Medication: Fentanyl Amount: 50 mcg Route: I.V. Start: 11:40 AM Stop: 11:40 AM Medication: Nitrogylcerin Amount: 200 mcg Route: I.A. Start: 11:41 AM Stop: 11:41 AM Medication: Heparin Amount: 5000 units Route: I.V. Start: 11:42 AM Stop: 11:42 AM Medication: Versed Amount: 1 mg Route: I.V. I, the attending physician, have reviewed and verified all procedure medications. Yes, all medications given per verbal order History/Risk Factors Hypertension: Yes Dyslipidemia: Yes Peripheral Arterial Disease (PAD): No Myocardial Infarction ([place]): Yes Obesity: Yes Renal Disease: No Tobacco Use: Former Prior Interventions PCI: No CABG: No Valve Surgery: No Report Signatures Finalized by Des Sánchez MD on 08/03/2022 02:20 PM
[2022-07-28] MEDS: aspirin 325 mg Tablet PO (09:35)
[2022-07-28] MEDS: diphenhydrAMINE 50 mg Capsule PO (09:35)
[2022-07-28 09:59] LABS: Basophils # 0.1 10^3/uL (0.0-0.1); Basophils % 0.8 %; Eosinophils # 0.3 10^3/uL (0.0-0.8); Eosinophils % 3.4 %; Hematocrit 43.3 % (37.0-47.0); Hemoglobin 13.3 g/dL (11.5-15.3); Lymphocytes # 2.5 10^3/uL (0.8-4.8); Lymphocytes % 28.8 %; Mean Corpuscular HGB Conc 30.7 g/dL (30.0-36.0); Mean Corpuscular Hemoglobin 26.1 pg (28.0-34.0); Mean Corpuscular Volume 85.1 fl (81-99); Mean Platelet Volume 10.5 fL (7.4-10.4); Monocytes # 0.5 10^3/uL (0.2-0.9); Monocytes % 5.8 %; Neutrophils # 5.32 10^3/uL (1.8-7.7); Neutrophils % 60.9 %; Nucleated Red Blood Cells % 0 %; Platelet Count 238 10^3/cmm (130-400); Red Blood Count 5.09 10^6/uL (4.1-5.3); Red Cell Distribution Width 14.5 % (12.1-15.1); White Blood Count 8.8 10^3/uL (4.0-10.0)
[2022-07-28 10:13] LABS: Blood Urea Nitrogen 9 mg/dL (6-20); Calcium 8.5 mg/dL (8.5-10.5); Carbon Dioxide 26 mmol/L (22-29); Chloride 100 mmol/L (98-107); Glomerular Filtration Rate 87.2 mL/min (90-130); Glucose 109 mg/dL (65-115); Osmolality Calculated 281 mOsm/kg (285-295); Sodium 136 mmol/L (136-145)
[2022-07-28 10:14] LABS: Anion Gap 14.1 (5-19); Potassium 4.1 mmol/L (3.5-5.1)
--- NOTE | 2022-07-28 12:11 | PC.NURSE ---
Patient arrived from labeling strategist at 1200. TR band or right wrist. Patient stable and doing well. 14ml of air in the TR band.
[2022-07-28] MEDS: sodium chloride 0.9% 1,000 ML 50 ML IV (13:14)
--- NOTE | 2022-07-28 15:40 | PC.NURSE ---
Tr band removed at 1500. No hematoma noted. No bleeding noted. Patient tolerated well. Patient currently resting in bed.
--- NOTE | 2022-08-03 14:13 | P.HP_ITS ---
Same Day Surgery H&P Indication for Procedure/HPI DATE OF PROCEDURE: July 28, 2022 CHIEF COMPLAINT/INDICATIONFOR SURGICAL PROCEDURE: Dyspnea on exertion/abnormal stress test PREOP DIAGNOSIS: Dyspnea on exertion/abnormal stress test PLANNED PROCEDURE: Operation Date: 07/28/22 10:00 Proposed Procedures p Cardiac Catheterization 55279 R94.39 R06.09 R07.89(Left) - Des Sánchez M.D Possible percutaneous coronary intervention 52-year-old woman who has been having dyspnea on exertion. Was found to have abnormal stress test. Given persistent symptoms and abnormality on stress test, decision made to perform coronary angiogram with possible PCI. Medications/Allergies* Allergies/Adverse Reactions Allergy/AdvReac Type Severity Reaction Status Date / Time erythromycin base Allergy ALGY-Rash Verified 05/29/22 08:25 Pertinent History/Comorbid Conditions* Medical History (Updated 05/29/22 @ 15:26 by VERENICE Taylor) Acute exacerbation of CHF (congestive heart failure) Asthma Atrial fibrillation with RVR Diastolic CHF High level of cardiac marker HTN (hypertension) with goal to be determined Family History (Updated 05/15/21 @ 10:20 by Merari Ivey RN) Colon cancer Mother CAD (coronary artery disease) Sister Stroke Sister Social History Smoking and tobacco status: former smoker (30+ years ago) Alcohol intake: never Substance/Drug Use: never Pertinent Exam Findings alert, oriented x 3, clear to auscultation bilaterally and regular rate & rhythm Conscious Sedation Assessment PATIENT ASSESSED PRIOR TO SEDATION, WITH NO CHANGE NOTED: Yes AIRWAY EVAL/ANESTHESIA PLAN: normal airway, ASA III, Local Anesthesia, Risks, b enefits & alternatives of sedation and/or procedure discussed and Patient agrees to continue as planned ADDITIONAL INFORMATION: Moderate sedation Recommendations Surgery/Procedure today (Left heart cath with possible PCI) Coding Level of Care Code Acute Code for Chg Fwd Diagnoses
== END 2022-07-28 17:18 | disposition home or self-care (01) ==
LOC: CCL 09:09 → CSU 12:03
PROVIDERS: Visit Provider Internal Medicine
DX: R94.39 Abnormal result of other cardiovascular function study (principal); R06.09 Other forms of dyspnea; I50.30 Unspecified diastolic (congestive) heart failure; I48.91 Unspecified atrial fibrillation; I10 Essential (primary) hypertension; E78.5 Hyperlipidemia, unspecified; E66.01 Morbid (severe) obesity due to excess calories; Z68.42 Body mass index [BMI] 45.0-49.9, adult; I25.2 Old myocardial infarction; Z87.891 Personal history of nicotine dependence
CPT/HCPCS: 36415; 80048; 85025; 93458; 96365; 99152; C1769; C1887; C1894; J1644; J2250; J3010; J3490; J7030; Q0163; Q9967

== ENCOUNTER → 2022-08-04 14:32 | Outpatient (BNVA) | payer MEDICAID, SELFPAY | PROVIDERS: Visit Provider Nurse Practitioner Family | DX: I11.0 Hypertensive heart disease with heart failure (principal); I50.30 Unspecified diastolic (congestive) heart failure; I48.91 Unspecified atrial fibrillation; Z79.01 Long term (current) use of anticoagulants; Z87.891 Personal history of nicotine dependence | CPT/HCPCS: 36415; 80048; 99214 ==

== ENCOUNTER 2022-08-07 22:43 | Emergency (ER) | payer MEDICAID, SELFPAY ==
[2022-08-07 22:51] VITALS: BP 133/73; PULSE 84; RESP 18; TEMP 36.8; O2SAT 96
--- NOTE | 2022-08-08 00:52 | ED_ITS ---
HPI - Chest Pain General: Chief Complaint: Chest Pain Stated Complaint: Chest Pains Time Seen by Provider: 08/08/22 00:52 History of Present Illness: Patient presents to the ER with complaints of sharp shooting chest pain that started tonight. Patient said these episodes only lasted seconds at a time. Patient states she had 4 of these episodes. Patient has never had these episod es before. Patient is not currently having chest pain at this moment patient denies any nausea vomiting diarrhea shortness of breath diaphoresis etc. Review of Systems General: Reports: 10 or more systems reviewed and unremarkable except in HPI and below PFSH ED PFSH: Medical History Acute exacerbation of CHF (congestive heart failure) Asthma Atrial fibrillation with RVR Diastolic CHF High level of cardiac marker HTN (hypertension) with goal to be determined Family History Sister CAD (coronary artery disease) Stroke Mother Colon cancer Social History Smoking and tobacco status: former smoker (30+ years ago) Alcohol intake: never Substance/Drug Use: never Physical Exam Const: COMMON NORMALS: no acute distress, average body habitus, patient oriented x3, no limitations, healthy appearing, alert and well nourished HENMT: COMMON NORMALS: normocephalic, atraumatic, hearing grossly normal bilaterally, external ears normal and moist oral mucous membranes HEAD & SCALP: normocephalic and atraumatic EXTERNAL EAR: Yes external ears normal Eye: COMMON NORMALS: Equal, round and reactive pupils present, EOMs intact bilaterally, conjunctivae normal and no scleral icterus CONJUNCTIVA: Yes conjunctivae normal PUPIL: Yes Equal, round and reactive pupils present Neck/C-Spine: COMMON NORMALS: full ROM, no lymphadenopathy, supple, no meningeal signs, no JVD and Thyroid normal THYROID: Thyroid normal Lymph: LYMPHATIC: no lymphadenopathy noted Chest: COMMONS NORMALS: normal inspection of the chest CHEST: Yes localized rib tenderness with anteroposterior compression Resp: COMMON NORMALS: normal respiratory effort, No retractions, No use of acc essory muscles and clear to auscultation bilaterally AUSCULTATION: clear to auscultation bilaterally Cardio: COMMON NORMALS: no JVD, regular rate, regular rhythm, S1 normal heart sound present, S2 normal heart sound present, No gallops present (Cardio), No clicks present (Cardio), No murmurs present (Cardio) and No rub (Cardio) RATE: regular rate RHYTHM: regular rhythm HEART SOUNDS: S1 normal heart sound present and S2 normal heart sound present GI: COMMON NORMALS: Normal to inspection, nondistended, normoactive bowel sounds present, Soft to palpation, non-tender, No hepatosplenomegaly present and no masses PALPATION: Yes Soft to palpation and Yes No hepatosplenomegaly present : COMMON NORMALS: Yes no CVA tenderness BLADDER/KIDNEY EXAM: Yes no CVA tenderness Back/Pelvis: COMMON NORMALS: no CVA tenderness Neuro: COMMON NORMALS: patient oriented x3 SENSORIUM/ORIENTATION: Yes alert MENINGEAL SIGNS: Yes no meningeal signs Course Vital Signs: Vital signs: Vital Signs Temperature 98.3 F 08/07/22 22:51 Pulse Rate 81 08/08/22 03:43 Respiratory Rate 16 08/08/22 03:43 Blood Pressure 121/62 08/08/22 03:43 Pulse Oximetry 96 08/08/22 03:43 Oxygen Delivery Me thod Room Air 08/07/22 22:51 MDM - Chest Pain Medical Decision Making Patient presents to the ER today with complaints of chest pain x4. These were acute episodes that radiated to the back. EKG was obtained as well as chest x- ray and cardiac labs. All of which were benign is thought this pain is noncardiac in nature. Patient be discharged home to follow-up with her primary care doc as needed. Differential Diagnosis Unlikely acute massive pulmonary embolism, acute respiratory failure, acute myocardial infarction, cardiac arrest or sudden cardiac Medical Records I reviewed the patient's medical records. Lab Data I reviewed the patient's lab results. 08/08/22 01:06 08/08/22 01:06 Laboratory Results WBC 12.0 10^3/uL (4.0-10.0) H 08/08/22 01:06 RBC 5.11 10^6/uL (4.1-5.3) 08/08/22 01:06 Hgb 13.4 g/dL (11.5-15.3) 08/08/22 01:06 Hct 43.0 % (37.0-47.0) 08/08/22 01:06 MCV 84.1 fl (81-99) 08/08/22 01:06 MCH 26.2 pg (28.0-34.0) L 08/08/22 01:06 MCHC 31.2 g/dL (30.0-36.0) 08/08/22 01:06 RDW 14.9 % (12.1-15.1) 08/08/22 01:06 Plt Count 299 10^3/cmm (130-400) 08/08/22 01:06 MPV 9.6 fL (7.4-10.4) 08/08/22 01:06 Neut % (Auto) 66.1 % 08/08/22 01:06 Lymph % (Auto) 25.6 % 08/08/22 01:06 Bell % (Auto) 5.4 % 08/08/22 01:06 Eos % (Auto) 1.7 % 08/08/22 01:06 Baso % (Auto) 0.7 % 08/08/22 01:06 Neut # (Auto) 7.94 10^3/uL (1.8-7.7) H 08/08/22 01:06 Lymph # (Auto) 3.1 10^3/uL (0.8-4.8) 08/08/22 01:06 Bell # (Auto) 0.7 10^3/uL (0.2-0.9) 08/08/22 01:06 Eos # (Auto) 0.2 10^3/uL (0.0-0.8) 08/08/22 01:06 Baso # (Auto) 0.1 10^3/uL (0.0-0.1) 08/08/22 01:06 Nucleated RBC % (auto) 0 % 08/08/22 01:06 Nucleated RBCs # 0.0 /100WBC 08/08/22 01:06 Sodium 138 mmol/L (136-145) 08/08/22 01:06 Potassium 4.1 mmol/L (3.5-5.1) 08/08/22 01:06 Chloride 100 mmol/L (98-107) 08/08/22 01:06 Carbon Dioxide 28 mmol/L (22-29) 08/08/22 01:06 Anion Gap 14.1 (5-19) 08/08/22 01:06 BUN 12 mg/dL (6-20) 08/08/22 01:06 Creatinine 0.7 mg/dL (0.5-0.9) 08/08/22 01:06 GFR Calculation 87.2 mL/min (90-130) L 08/08/22 01:06 Glucose 99 mg/dL (65-115) 08/08/22 01:06 Calculated Osmolality 286 mOsm/kg (285-295) 08/08/22 01:06 Calcium 8.8 mg/dL (8.5-10.5) 08/08/22 01:06 Total Bilirubin 0.3 mg/dL (0.15-1.2) 08/08/22 01:06 AST 18 U/L (0-32) 08/08/22 01:06 ALT 19 U/L (0-33) 08/08/22 01:06 Alkaline Phosphatase 89 U/L (35-105) 08/08/22 01:06 Troponin T Baseline 6 ng/L (0-10) 08/08/22 01:35 Troponin T 120 Minute 6.39 ng/L (0-10) 08/08/22 03:15 Delta Troponin T 0.39 ABS# (0-10) 08/08/22 03:15 Total Protein 7.1 g/dL (6.6-8.7) 08/08/22 01:06 Albumin 4.3 g/dL (3.5-5.2) 08/08/22 01:06 Globulin 2.8 g/dL (1.3-4.6) 08/08/22 01:06 Urine Color Yellow (Yellow) 08/08/22 01:42 Urine Appearance Sl hazy (CLEAR) A 08/08/22 01:42 Urine pH 6 (5-7) 08/08/22 01:42 Ur Specific [place] 1.020 (1.005-1.030) 08/08/22 01:42 Urine Protein Neg (Negative) 08/08/22 01:42 Urine Glucose (UA) Norm (Normal) 08/08/22 01:42 Urine Ketones Negative (Negative) 08/08/22 01:42 Urine Blood Neg (Negative) 08/08/22 01:42 Urine Nitrate Negative (Negative) 08/08/22 01:42 Urine Bilirubin Neg (Negative) 08/08/22 01:42 Urine Urobilinogen Norm mg/dL (Negative) 08/08/22 01:42 Ur Leukocyte Esterase Negative (Negative) 08/08/22 01:42 Urine RBC 0-4 /hpf (0-2) H 08/08/22 01:42 Urine WBC 5-10 /hpf (0-5) H 08/08/22 01:42 Ur Squamous Epith Cells 5-10 /hpf (0-5) H 08/08/22 01:42 Amorphous Sediment Not Reportable 08/08/22 01:42 Urine Bacteria Trace /hpf (NONE) 08/08/22 01:42 Urine Mucus 2+ /hpf 08/08/22 01:42 EKG Data EKG 1: I personally reviewed and interpreted this EKG as follows: EKG interpretation date: 08/08/22 EKG interpretation time: 03:03 Prior EKG tracings: not available for review Interpretation: EKG showed ventricular rate 81 beats minute, W[place] interval 145, QRS duration 88, QTc 422, normal sinus rhythm, no ST-T wave changes Discharge Plan Discharge Patient Disposition: Home Clinical Impression: Atypical chest pain Condition: Stable Prescriptions: No Action Eliquis 5 mg tablet 5 mg PO BID@0900,2100 Qty: 90 4RF Hold Instructions: Resume on 07/29/22. diltiazem HCl 120 mg capsule,extended release 24hr 120 mg PO DAILY Qty: 90 3RF Lasix 40 mg tablet 40 mg PO DAILY Qty: 90 3RF Klor-Con M20 20 mEq tablet,ER particles/crystals 20 meq PO DAILY Qty: 90 3RF albuterol sulfate [Ventolin HFA] 90 mcg/actuation HFA aerosol inhaler inhalation fluticasone propion-salmeterol [Advair Diskus] 250-50 mcg/dose blister with device 1 inh inhalation BID Qty: 60 2RF Discharge Orders: Discharge ED (Routine); Ordered 08/08/22 Ordered By: Saeed Jacobo Patient Instructions: Noncardiac Chest Pain (ED) Activity Restrictions/Additional Instructions: Please follow-up with your family doctor in the next 7 to 10 days for further evaluation and treatment. If his pain comes back worsens or changes feel free to return to the ER. Coding Level of Care Code ED [employer] for Karol Esparza
--- NOTE | 2022-08-08 01:04 | XRR_ITS ---
PROCEDURE INFORMATION: Exam: XR Chest Exam date and time: 08/08/2022 1:09 AM Age: 52 years old Clinical indication: Chest pressure; Patient HX: C/O chest pain. History of chf. TECHNIQUE: Imaging protocol: Radiologic exam of the chest. Views: 1 view. COMPARISON: CR XR chest 1V portable [id number] 04/02/2021 7:35 PM FINDINGS: Lungs: Mildly increased lung markings, which may be secondary to low lung volumes or mild pulmonary congestion. Pneumonia should be excluded clinically. Pleural spaces: Unremarkable. No pleural effusion. No pneumothorax. Heart/Mediastinum: Stable cardiomediastinal silhouette. Bones/joints: Unremarkable. XR/XR chest 1V portable [id number] IMPRESSION: Low lung volumes vs mild pulmonary congestion.
[2022-08-08 01:10] LABS: Basophils # 0.1 10^3/uL (0.0-0.1); Basophils % 0.7 %; Eosinophils # 0.2 10^3/uL (0.0-0.8); Eosinophils % 1.7 %; Hemoglobin 13.4 g/dL (11.5-15.3); Lymphocytes # 3.1 10^3/uL (0.8-4.8); Lymphocytes % 25.6 %; Mean Corpuscular HGB Conc 31.2 g/dL (30.0-36.0); Mean Corpuscular Hemoglobin 26.2 pg (28.0-34.0); Mean Corpuscular Volume 84.1 fl (81-99); Mean Platelet Volume 9.6 fL (7.4-10.4); Monocytes # 0.7 10^3/uL (0.2-0.9); Monocytes % 5.4 %; Neutrophils # 7.94 10^3/uL (1.8-7.7); Neutrophils % 66.1 %; Nucleated Red Blood Cells % 0 %; Platelet Count 299 10^3/cmm (130-400); Red Blood Count 5.11 10^6/uL (4.1-5.3); Red Cell Distribution Width 14.9 % (12.1-15.1)
[2022-08-08 01:46] VITALS: BP 163/82; PULSE 81; RESP 16; O2SAT 96
[2022-08-08 02:00] LABS: Add Urine Microscopic? YES; Bilirubin Urine Neg (Negative); Blood Urine Neg (Negative); Glucose Urine UA Norm (Normal); Ketones Urine Negative (Negative); Leukocyte Esterase Urine Negative (Negative); Nitrate Urine Negative (Negative); Protein Urine Neg (Negative); Urine Appearance SL Hazy (CLEAR); Urine Color Yellow (Yellow); Urobilinogen Urine Norm (Negative); pH Urine 6 (5-7)
[2022-08-08 02:01] LABS: Add Urine Culture? No; Bacteria Urine TRACE /hpf; Mucus Urine 2+ /hpf; RBC Urine 0-4 /hpf (0-2)
[2022-08-08 02:02] VITALS: BP 118/77; PULSE 77; RESP 16; O2SAT 93
[2022-08-08 02:02] LABS: Troponin(5th) Baseline 6 ng/L (0-10)
[2022-08-08 02:03] LABS: Alanine Aminotransferase 19 U/L (0-33); Albumin Level 4.3 g/dL (3.5-5.2); Alkaline Phosphatase 89 U/L (35-105); Anion Gap 14.1 (5-19); Aspartate Amino Transferase 18 U/L (0-32); Blood Urea Nitrogen 12 mg/dL (6-20); Calcium 8.8 mg/dL (8.5-10.5); Carbon Dioxide 28 mmol/L (22-29); Chloride 100 mmol/L (98-107); Globulin 2.8 g/dL (1.3-4.6); Glomerular Filtration Rate 87.2 mL/min (90-130); Glucose 99 mg/dL (65-115); Osmolality Calculated 286 mOsm/kg (285-295); Potassium 4.1 mmol/L (3.5-5.1); Sodium 138 mmol/L (136-145); Total Bilirubin 0.3 mg/dL (0.15-1.2); Total Protein 7.1 g/dL (6.6-8.7)
[2022-08-08 02:36] VITALS: BP 135/65; PULSE 79; RESP 16; O2SAT 97
--- NOTE | 2022-08-08 03:04 | ECG_ITS ---
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 Measurements Intervals [place] Rate: 81 P: 55 [place]: 145 QRS: 12 QRSD: 88 T: 43 QT: 384 QTc: 448 Interpretive Statements SINUS RHYTHM Compared to ECG 04/02/2021 22:44:17 Atrial fibrillation no longer present Electronically Signed On 08-08-2022 8:43:22 CDT by Des Sánchez M.D. [id number]
[2022-08-08 03:21] VITALS: BP 139/76; PULSE 80; RESP 16; O2SAT 96
[2022-08-08 03:40] LABS: Troponin 5 2HR 6.39 ng/L (0-10)
[2022-08-08 03:42] LABS: Troponin 5 2HR Delta 0.39 ABS# (0-10)
[2022-08-08 03:43] VITALS: BP 121/62; PULSE 81; RESP 16; O2SAT 96
[2022-08-08 04:01] VITALS: BP 127/62; PULSE 16; TEMP 36.8; O2SAT 94
--- NOTE | 2022-08-08 13:18 | DCPLANNER ---
TCM called patient due to no primary care physician - patient declines at this time.
== END 2022-08-08 04:02 | disposition home or self-care (01) ==
PROVIDERS: Emergency Provider Emergency Medicine
DX: R07.89 Other chest pain (principal); Z79.01 Long term (current) use of anticoagulants; Z87.891 Personal history of nicotine dependence; I11.0 Hypertensive heart disease with heart failure; I50.9 Heart failure, unspecified
CPT/HCPCS: 71045; 80053; 81001; 84484; 85025; 93005; 99285

== ENCOUNTER → 2022-08-25 12:06 | Outpatient (BNVA) | payer MEDICAID, SELFPAY | PROVIDERS: Visit Provider Internal Medicine Pulmonary Disease | DX: J45.909 Unspecified asthma, uncomplicated (principal); R06.09 Other forms of dyspnea; R06.02 Shortness of breath | CPT/HCPCS: 36415; 82785; 85651; 86003; 86038; 86140; 86200; 86235; 86431; 99204 ==

== ENCOUNTER 2022-09-23 07:56 | Outpatient (CLI) | payer MEDICAID, SELFPAY ==
--- NOTE | 2022-09-23 08:30 | CTR_ITS ---
PROCEDURE INFORMATION: Exam: CT Chest Without Contrast; Diagnostic Exam date and time: 09/23/2022 8:14 AM Age: 52 years old Clinical indication: Patient HX: Shortness of breath, lupus; Additional info: High resolution TECHNIQUE: Imaging protocol: Diagnostic computed tomography of the chest without contrast. Radiation optimization: All CT scans at this facility use at least one of these dose optimization techniques: automated exposure control; mA and/or kV adjustment per patient size (includes targeted exams where dose is matched to clinical indication); or iterative reconstruction. REPORTING DATA: Count of CT and Cardiac NM exams in prior 12 months: This patient has received [address] and 0 known cardiac nuclear medicine studies in the 12 months prior to the current study. COMPARISON: CR (CHEST, ) 08/08/2022 1:09 AM RADIATION DOSE METRICS: Total DLP (mGy-cm): 1702.71 FINDINGS: Lungs: There is a small patch of ground-glass opacity at the right lung base which may represent some infectious or inflammatory disease or potentially some active interstitial disease. This infiltrate improves but does not completely resolve on scanning in the prone position. There is a small area of peripheral ground-glass opacity superior right lower lobe such as an image number 22 series 4. This is adjacent to some spurring from a rib abnormality and may represent some local scarring or posttraumatic change rather than active interstitial disease. No peripheral reticulation, honeycombing or bronchiectasis is identified in the lungs. Minimal ground-glass infiltrate at the right lung base Pleural spaces: Unremarkable. No pneumothorax. No pleural effusion. Heart: Unremarkable. No cardiomegaly. No pericardial effusion. Coronary arteries: There is no evidence of atherosclerotic coronary artery calcifications. Lymph nodes: There is a 6 x 10 mm sized prevascular lymph node and 8 x 12 mm right paratracheal lymph node but no adenopathy. Vasculature: There is no thoracic aortic aneurysm. Bones/joints: No acute fracture Soft tissues: There is a small Bochdalek's hernia containing fat. CT/CT chest wo con [id number] IMPRESSION: Question of minimal ground-glass infiltrate at the right lung base. Otherwise no evidence for any active interstitial disease.
== END 2022-09-23 07:57 | disposition home or self-care (01) ==
LOC: RAD 07:59
PROVIDERS: PCP Internal Medicine Pulmonary Disease; Visit Provider Internal Medicine Pulmonary Disease
DX: J84.9 Interstitial pulmonary disease, unspecified (principal); M25.572 Pain in left ankle and joints of left foot
CPT/HCPCS: 71250; 73610

== ENCOUNTER 2022-09-29 12:21 | Emergency (ER) | payer MEDICAID, SELFPAY ==
[2022-09-29 12:27] VITALS: BP 122/81; PULSE 95; RESP 16; TEMP 36.8; O2SAT 97
--- NOTE | 2022-09-29 12:52 | XR_ITS ---
WS: [id number] XR chest 1V portable [id number] REASON FOR EXAM: dyspnea FINDINGS: The chest is unchanged compared to 08/08/2022. The heart and the mediastinum are within normal limits. Minimal calcified granulomatous disease bilaterally. No acute/subacute pulmonary parenchymal or pleural abnormality. Decreased lung volumes with mild elevation of the hemidiaphragms secondary to body habitus. Bony thorax is intact without significant focal abnormality. XR/XR chest 1V portable [id number] IMPRESSION: No acute chest abnormality.
--- NOTE | 2022-09-29 12:52 | W.ED.SYNCOPE ---
HPI - Syncope General: Chief Complaint: Syncope Stated Complaint: near syncope Time Seen by Provider: 09/29/22 12:31 History of Present Illness: 52-year-old female with a history of congestive heart failure, atrial fibrillation, reactive airway disease, obstructive sleep apnea among others who presents to the emergency department reporting that she has not felt well for the last few days. She says that she was started on levofloxacin 5 days ago for a pérez spot on my lung . She really has not felt well since then. She is not sure if it is related to the antibiotic or not. She says she has gained about 5 pounds since last time she weighed. She continues to take her medications although she does not always take them right at 9:00. Today for example she took them close to 11:00. Around that time she was ambulating to the toilet and felt her heart racing. She felt lightheaded when she stood up from the toilet but did not lose consciousness. She is noted to be borderline tearful and hyperventilating when I enter the room. Associated symptoms: Reports lightheadedness; Deny abdominal pain, fever(s), headache(s) or nausea Review of Systems General: Reports: 10 or more systems reviewed and unremarkable except in HPI and below Const: Denies: fever(s), chills or body aches Eyes: Denies: change in vision ENMT: Reports: other (Dry mouth); Denies: throat pain Card: Reports: palpitations, lightheadedness, pre-syncope, orthopnea and other ( Burning left upper chest near collarbone); Denies: edema, swelling of feet/ankles or syncope Resp: Reports: dyspnea and non-productive cough (Baseline); Denies: productive cough, wheezing, pain on inspiration or hemoptysis GI: Denies: abdominal pain, nausea, vomiting or diarrhea : Denies: flank pain or dysuria Musc: Denies: neck pain, back pain, extremity pain or extremity swelling Skin/Breast: Denies: rash or erythema Neuro: Denies: headache(s), numbness in extremities, weakness in extremities, lack of coordination or difficulty walking PFS ED PFSH: Medical History Acute exacerbation of CHF (congestive heart failure) Asthma Atrial fibrillation with RVR Diastolic CHF High level of cardiac marker HTN (hypertension) with goal to be determined Family History Sister CAD (coronary artery disease) Stroke Mother Colon cancer Social History Smoking and tobacco status: former smoker (30+ years ago) Alcohol intake: never Substance/Drug Use: never Physical Exam Const: COMMON NORMALS: no limitations, alert and well nourished EXAM LIMITATIONS: no altered mental status HENMT: COMMON NORMALS: normocephalic, atraumatic and external ears normal HEAD & SCALP: normocephalic and atraumatic EXTERNAL EAR: Yes external ears normal MOUTH: no muffled voice Eye: COMMON NORMALS: conjunctivae normal and no scleral icterus CONJUNCTIVA: Yes conjunctivae normal Neck/C-Spine: COMMON NORMALS: no JVD GENERAL: Yes normal visual inspection and Yes trachea midline Resp: COMMON NORMALS: No use of accessory muscles and clear to auscultation bilaterally AUSCULTATION: clear to auscultation bilaterally OTHER: Hyperventilating when I arrive Cardio: COMMON NORMALS: no JVD, regular rate (Rate in the 90s) and No murmurs present (Cardio) RATE: regular rate (Rate in the 90s) GI: COMMON NORMALS: Soft to palpation and non-tender PALPATION: Yes Soft to palpation and No Guarding due to palpation present (GI) Extremity: COMMON NORMALS: normal to inspection Neuro: COMMON NORMALS: moves all extremities, no focal motor deficits and no sensory deficits noted SENSORIUM/ORIENTATION: Yes alert SPEECH: speech normal Psych: COMMON NORMALS: mental status grossly normal, Normal thought process present, cooperative and speech normal SPEECH: Yes normal speech MOOD & AFFECT: Yes anxious and Yes tearful THOUGHT PROCESS: Normal thought process present Skin: COMMON NORMALS: no rashes or lesions noted, turgor normal and no jaundice GENERAL SKIN EXAM: no rashes or lesions noted and turgor normal Course Vital Signs: Vital signs: Vital Signs Temperature 98.2 F 09/29/22 12:27 Pulse Rate 95 09/29/22 14:48 Respiratory Rate 20 H 09/29/22 14:48 Blood Pressure 122/81 09/29/22 14:48 Pulse Oximetry 95 09/29/22 14:48 Oxygen Delivery Me thod Room Air 09/29/22 12:27 MDM - Syncope Medical Decision Making Differential diagnosis includes side effect of Levaquin, pAF w/ or w/o RVR, anxiety/stress, pulm htn, orthostasis, anemia, abnormal electrolytes, CAD, CHF, other. Seems less likely PE. SPo2 normal, on anticoagulation. EKG my interpretation at 1332. Sinus rhythm, rate 95, normal axis, QRS duration is 85 ms, no concerning ST segment elevations or depressions. No ectopy. Chest x-ray my interpretation. Normal heart size. No pneumothorax. No effusions. No infiltrates. No visible masses. Negative study. I have reviewed all of the patient's labs. There are no significant abnormalities. Troponin is notably normal. I went back and spoke with the patient about all of her results. Patient tells me she has been under a lot of stress. She has constant anxiety. I suspect that this is contributing. Concerning her heart, she just had an angiogram that showed: Conclusions ? 1. No significant disease noted in the Left Main, Left Anterior Descending, Right, or Circumflex coronary arteries. ? 2. Normal left ventricular systolic function. Ejection fraction of 65%. Echo from 05/15 reviewed. Mild diastolic dysfunction. Patient tells me she has sleep apnea and used to be on home oxygen at night. However, she reports her insurance would not pay for it and she does not have enough money to self-pay. I recommended that she talk to her primary care provider about getting a formal sleep study. If she is formally diagnosed and then we can make the appropriate prescriptions through insurance. Patient does request something for her stress, anxiety, insomnia. I think trazodone would be a good fit. Patient has a PCP follow-up on the , in 3 days. She will ask about a sleep study at that time. At this time I do not think there is anything else on the differential diagnosis that requires emergent work-up or hospitalization. Will DC with follow-up to PCP. Lab Data 09/29/22 12:10 09/29/22 12:10 Radiology Impressions Chest X-Ray 09/29/22 12:52 IMPRESSION: No acute chest abnormality. Laboratory Results WBC 7.5 10^3/uL (4.0-10.0) 09/29/22 12:10 RBC 5.29 10^6/uL (4.1-5.3) 09/29/22 12:10 Hgb 13.9 g/dL (11.5-15.3) 09/29/22 12:10 Hct 43.5 % (37.0-47.0) 09/29/22 12:10 MCV 82.2 fl (81-99) 09/29/22 12:10 MCH 26.3 pg (28.0-34.0) L 09/29/22 12:10 MCHC 32.0 g/dL (30.0-36.0) 09/29/22 12:10 RDW 14.1 % (12.1-15.1) 09/29/22 12:10 Plt Count 311 10^3/cmm (130-400) 09/29/22 12:10 MPV 10.1 fL (7.4-10.4) 09/29/22 12:10 Neut % (Auto) 63.0 % 09/29/22 12:10 Lymph % (Auto) 26.9 % 09/29/22 12:10 [place] % (Auto) 7.1 % 09/29/22 12:10 Eos % (Auto) 1.7 % 09/29/22 12:10 Baso % (Auto) 0.8 % 09/29/22 12:10 Neut # (Auto) 4.71 10^3/uL (1.8-7.7) 09/29/22 12:10 Lymph # (Auto) 2.0 10^3/uL (0.8-4.8) 09/29/22 12:10 [place] # (Auto) 0.5 10^3/uL (0.2-0.9) 09/29/22 12:10 Eos # (Auto) 0.1 10^3/uL (0.0-0.8) 09/29/22 12:10 Baso # (Auto) 0.1 10^3/uL (0.0-0.1) 09/29/22 12:10 Nucleated RBC % (auto) 0 % 09/29/22 12:10 Nucleated RBCs # 0.0 /100WBC 09/29/22 12:10 Sodium 141 mmol/L (136-145) 09/29/22 12:10 Potassium 3.8 mmol/L (3.5-5.1) 09/29/22 12:10 Chloride 99 mmol/L (98-107) 09/29/22 12:10 Carbon Dioxide 29 mmol/L (22-29) 09/29/22 12:10 Anion Gap 16.8 (5-19) 09/29/22 12:10 BUN 15 mg/dL (6-20) 09/29/22 12:10 Creatinine 0.9 mg/dL (0.5-0.9) 09/29/22 12:10 GFR Calculation 65.2 mL/min (90-130) L 09/29/22 12:10 Glucose 99 mg/dL (65-115) 09/29/22 12:10 Calculated Osmolality 293 mOsm/kg (285-295) 09/29/22 12:10 Calcium 9.6 mg/dL (8.5-10.5) 09/29/22 12:10 Magnesium 2.1 mg/dL (1.7-2.3) 09/29/22 12:10 Total Bilirubin 0.4 mg/dL (0.15-1.2) 09/29/22 12:10 AST 18 U/L (0-32) 09/29/22 12:10 ALT 16 U/L (0-33) 09/29/22 12:10 Alkaline Phosphatase 91 U/L (35-105) 09/29/22 12:10 Troponin T Baseline 8 ng/L (0-10) 09/29/22 12:10 Troponin T 120 Minute 13.33 ng/L (0-10) H 09/29/22 14:30 Delta Troponin T 5.33 ABS# (0-10) 09/29/22 14:30 NT-Pro-B Natriuret Pep 79 pg/mL (0-125) 09/29/22 12:10 Total Protein 7.4 g/dL (6.6-8.7) 09/29/22 12:10 Albumin 4.3 g/dL (3.5-5.2) 09/29/22 12:10 Globulin 3.1 g/dL (1.3-4.6) 09/29/22 12:10 Discharge Plan Discharge Patient Disposition: Home Clinical Impression: Encounter for medical screening examination, Diastolic CHF, Dyspnea on exertion, Light-headed feeling, Anxiety about health Condition: Stable Prescriptions: New trazodone 100 mg tablet 100 mg PO .hs 30 Days Qty: 30 0RF Discontinued levofloxacin 500 mg tablet 500 mg PO DAILY Qty: 5 0RF No Action Eliquis 5 mg tablet 5 mg PO BID@0900,2100 Qty: 90 4RF Hold Instructions: Resume on 07/29/22. diltiazem HCl 120 mg capsule,extended release 24hr 120 mg PO DAILY Qty: 90 3RF Lasix 40 mg tablet 40 mg PO DAILY Qty: 90 3RF Klor-Con M20 20 mEq tablet,ER particles/crystals 20 meq PO DAILY Qty: 90 3RF montelukast 10 mg tablet 10 mg PO DAILY Qty: 30 6RF albuterol sulfate [Ventolin HFA] 90 mcg/actuation HFA aerosol inhaler 2 inh inhalation Q8H PRN (Reason: Shortness Of Breath) Discharge Orders: Discharge ED (Routine); Ordered 09/29/22 Ordered By: Issac Mcmillan Discharge Diet: Low Salt and Low Fat Discharge Activity: Resume usual activity Patient Instructions: Insomnia (ED), Anxiety (ED), Shortness of Breath (ED), Obstructive Sleep Apnea Coding Level of Care Code ED Case [employer] for Karol Esparza
[2022-09-29 12:56] LABS: Basophils # 0.1 10^3/uL (0.0-0.1); Basophils % 0.8 %; Eosinophils # 0.1 10^3/uL (0.0-0.8); Eosinophils % 1.7 %; Hematocrit 43.5 % (37.0-47.0); Hemoglobin 13.9 g/dL (11.5-15.3); Lymphocytes % 26.9 %; Mean Corpuscular Hemoglobin 26.3 pg (28.0-34.0); Mean Corpuscular Volume 82.2 fl (81-99); Mean Platelet Volume 10.1 fL (7.4-10.4); Monocytes # 0.5 10^3/uL (0.2-0.9); Monocytes % 7.1 %; Neutrophils # 4.71 10^3/uL (1.8-7.7); Nucleated Red Blood Cells % 0 %; Platelet Count 311 10^3/cmm (130-400); Red Blood Count 5.29 10^6/uL (4.1-5.3); Red Cell Distribution Width 14.1 % (12.1-15.1); White Blood Count 7.5 10^3/uL (4.0-10.0)
[2022-09-29] MEDS: dilTIAZem 5 mg/mL SDV 5 mL 10 MG IVP (13:05)
[2022-09-29] MEDS: LORazepam 2 mg/mL INJ 1 mL 0.5 MG IVP (13:05)
[2022-09-29 13:13] VITALS: BP 112/72; PULSE 103; RESP 20; O2SAT 93
[2022-09-29 13:15] LABS: Troponin(5th) Baseline 8 ng/L (0-10)
[2022-09-29 13:25] LABS: Alanine Aminotransferase 16 U/L (0-33); Albumin Level 4.3 g/dL (3.5-5.2); Alkaline Phosphatase 91 U/L (35-105); Anion Gap 16.8 (5-19); Aspartate Amino Transferase 18 U/L (0-32); Blood Urea Nitrogen 15 mg/dL (6-20); Calcium 9.6 mg/dL (8.5-10.5); Carbon Dioxide 29 mmol/L (22-29); Chloride 99 mmol/L (98-107); Globulin 3.1 g/dL (1.3-4.6); Glomerular Filtration Rate 65.2 mL/min (90-130); Glucose 99 mg/dL (65-115); Magnesium 2.1 mg/dL (1.7-2.3); NT Pro B Type Natriuretic Pept 79 pg/mL (0-125); Osmolality Calculated 293 mOsm/kg (285-295); Potassium 3.8 mmol/L (3.5-5.1); Sodium 141 mmol/L (136-145); Total Bilirubin 0.4 mg/dL (0.15-1.2); Total Protein 7.4 g/dL (6.6-8.7)
--- NOTE | 2022-09-29 13:32 | ECG_ITS ---
[facility] Test Date: 2022-09-29 Pat Name: Hannah Rizvi Department: Room: Gender: Female Resident Medical Officer: : 1970 Requested By: Issac Mcmillan Order Number: [id number] Gen MD: Terrence Zambrano M.D. Measurements Intervals [place] Rate: 95 P: 58 MS: 142 QRS: -3 QRSD: 85 T: 45 QT: 324 QTc: 409 Interpretive Statements SINUS RHYTHM Compared to ECG 08/08/2022 03:03:15 No significant changes Electronically Signed On 09-29-2022 22:45:36 CDT by Terrence Zambrano M.D. [id number]
[2022-09-29 14:48] VITALS: BP 122/81; PULSE 95; RESP 20; O2SAT 95
[2022-09-29 14:57] LABS: Troponin 5 2HR 13.33 ng/L (0-10)
[2022-09-29 14:59] LABS: Troponin 5 2HR Delta 5.33 ABS# (0-10)
[2022-09-29 15:11] VITALS: BP 122/81; PULSE 95; RESP 20; O2SAT 95
--- NOTE | 2022-09-30 11:31 | DCPLANNER ---
log manager had message to schedule an outpatient sleep study for patient. log manager faxed signed order to centralized scheduling, who will call patient with appointment information.
--- NOTE | 2022-09-30 11:35 | DCPLANNER ---
Patient sees Dr. Hyatt for her primary care physician
== END 2022-09-29 15:12 | disposition home or self-care (01) ==
PROVIDERS: Emergency Provider Emergency Medicine; PCP Family Medicine Adult Medicine
DX: R42 Dizziness and giddiness (principal); R06.00 Dyspnea, unspecified; I11.0 Hypertensive heart disease with heart failure; I50.32 Chronic diastolic (congestive) heart failure; Z87.891 Personal history of nicotine dependence; F06.4 Anxiety disorder due to known physiological condition
CPT/HCPCS: 71045; 80053; 83735; 83880; 84484; 85025; 93005; 96374; 96375; 99285; J2060; J3490

== ENCOUNTER → 2022-10-14 09:08 | Outpatient (BNVA) | payer MEDICAID, SELFPAY | PROVIDERS: PCP Family Medicine Adult Medicine; Visit Provider Surgery | DX: Z86.010 Personal history of colon polyps (principal) | CPT/HCPCS: 99203 ==

== ENCOUNTER → 2022-11-03 15:18 | Outpatient (BNVA) | payer MEDICAID, SELFPAY | PROVIDERS: PCP Family Medicine Adult Medicine; Visit Provider Internal Medicine Cardiovascular Disease | DX: I11.0 Hypertensive heart disease with heart failure (principal); I50.30 Unspecified diastolic (congestive) heart failure; I48.91 Unspecified atrial fibrillation; G47.30 Sleep apnea, unspecified; E78.5 Hyperlipidemia, unspecified; E66.01 Morbid (severe) obesity due to excess calories; Z68.42 Body mass index [BMI] 45.0-49.9, adult; Z87.891 Personal history of nicotine dependence; Z79.01 Long term (current) use of anticoagulants | CPT/HCPCS: 99214 ==

== ENCOUNTER 2022-12-03 06:39 | Day surgery (SDC) | payer MEDICAID, SELFPAY ==
[2022-12-01 09:43] VITALS: BMI 45.1
--- NOTE | 2022-12-03 06:58 | ANES.PREANE2 ---
Pre-Anesthetic Assessment Height/Weight: Height 1.57 m Weight 112.037 kg Preop Diagnosis: history of polyps Operation Date: 12/03/22 07:30 Proposed Procedures p Colonoscopy 38959, Z86.010(Not Applicable) - Stan Hendricks DO Familial anesthetic complications: none Last intake: meal- 12/01/22 1430 clears- 12/02/220 Social No alcohol and No tobacco Exam alert, oriented x 3, clear to auscultation bilaterally and regular rate & rhythm Airway Submandibular: within normal limits Cervical ROM: within normal limits Mallampati: Class IV Dentition: chipped Pulmonary Asthma CV/HEM Atrial Fibrillation, Congestive Heart Failure (hospitalized 1.5 years ago) and Hypertension last two EKGs show sinus rhythm. Stress test 06/15 cardiac cath procedure 6 months prior, no intervention. None reported Hepatic None reported GI Gastroesophageal Reflux Disease Metabolic Morbid Obesity [facility] [place] Lower Back Pain Neuropsych Anxiety and Depression Anesthetic Plan ASA status: 3 Anesthesia: General and MAC Medications/Allergies Home Medications Medication Instructions Recorded Confirmed Last Taken Type diltiazem HCl 120 mg 120 mg PO DAILY #90 caps 04/10/22 12/03/22 12/02/22 Rx capsule,extended release 24 hr furosemide 40 mg tablet (Lasix) 40 mg PO DAILY #90 tabs 04/10/22 12/03/22 12/02/22 Rx potassium chloride 20 mEq 20 meq PO DAILY #90 tabs 04/10/22 12/03/22 12/02/22 Rx tablet,extended release(part/cryst) (Klor-Con M) albuterol sulfate 90 mcg/actuation 2 inh inhalation Q8H PRN Shortness 08/04/22 12/03/22 11/14/22 History aerosol inhaler (Ventolin HFA) Of Breath doxepin 50 mg capsule 50 mg PO DAILY #30 caps 10/02/22 12/03/22 12/02/22 Rx escitalopram oxalate 10 mg tablet 10 mg PO DAILY mental health #30 10/02/22 12/03/22 12/02/22 Rx (Lexapro) tabs baclofen 20 mg tablet 20 mg PO BID muscle spasms #30 tabs 10/28/22 12/03/22 12/02/22 Rx bupropion HCl 200 mg tablet,12 hr 200 mg PO QAM #30 tabs 0912/03/22 12/02/22 Rx sustained-release apixaban 5 mg tablet (Eliquis) 5 mg PO BID@0900,2100 #180 tabs 11/03/22 12/03/22 11/30/22 Rx guaifenesin 600 mg tablet, 600 mg PO BID cough/congestion #30 11/25/22 12/03/22 12/02/22 Rx extended release 12 hr tabs sulfamethoxazole 800 1 tab PO BID bronchitis #14 tabs 11/25/22 12/03/22 12/02/22 Rx mg-trimethoprim 160 mg tablet (Bactrim DS) Allergies Allergy/AdvReac Type Severity Reaction Status Date / Time erythromycin base Allergy ALGY-Rash Verified 11/25/22 09:29 [facility] Anesthesia Medical History (Updated 11/25/22 @ 09:52 by Juan Larson MD) Acute bronchitis and bronchiolitis Acute exacerbation of CHF (congestive heart failure) Allergic rhinitis due to allergen Asthma Moderate restrictive airway disease on PFT 05/13/2022 Atrial fibrillation with RVR Depression Diastolic CHF Former smoker, stopped smoking in distant past Smoker x 25 years, quit >10 years ago High level of cardiac marker HTN (hypertension) with goal to be determined Hx of colonic polyps colonoscopy 2016 with polys Hyperlipidemia Insomnia Morbid obesity with BMI of 45.0-49.9, adult Rectal bleeding Strain of mid-back Surgical History Hx of appendectomy Hx of colonoscopy with polypectomy total of 4 colonoscopies. Last one was done 6 yrs ago Hx of hysterectomy Family History Sister CAD (coronary artery disease) Stroke Mother Colon cancer Social History Smoking and tobacco status: former smoker (30+ years ago) Alcohol intake: never Substance/Drug Use: never Data Anesthesia Cardiac Studies: Echocardiogram 05/02/22 Sestamibi Stress Test (Cardiology) 05/30/22 Cardiac Event Monitor 05/22/21
[2022-12-03 06:59] VITALS: BP 99/80; PULSE 94; RESP 18; TEMP 36.4; O2SAT 95
--- NOTE | 2022-12-03 07:01 | PM.HP ---
Providers/Chief Complaint Primary Care Provider: Juan Larson MD Chief Complaint: Z86.010 History of Present Illness Hannah Rizvi is a 52 year old female Review of Systems General: Reports: 10 or more systems reviewed and unremarkable except in HPI and below Medications/Allergies Home Medications Medication Instructions Recorded Confirmed Last Taken Type diltiazem HCl 120 mg 120 mg PO DAILY #90 caps 04/10/22 12/03/22 12/02/22 Rx capsule,extended release 24 hr furosemide 40 mg tablet (Lasix) 40 mg PO DAILY #90 tabs 04/10/22 12/03/22 12/02/22 Rx potassium chloride 20 mEq 20 meq PO DAILY #90 tabs 04/10/22 12/03/22 12/02/22 Rx tablet,extended release(part/cryst) (Klor-Con M) albuterol sulfate 90 mcg/actuation 2 inh inhalation Q8H PRN Shortness 08/04/22 12/03/22 11/14/22 History aerosol inhaler (Ventolin HFA) Of Breath doxepin 50 mg capsule 50 mg PO DAILY #30 caps 10/02/22 12/03/22 12/02/22 Rx escitalopram oxalate 10 mg tablet 10 mg PO DAILY mental health #30 10/02/22 12/03/22 12/02/22 Rx (Lexapro) tabs baclofen 20 mg tablet 20 mg PO BID muscle spasms #30 tabs 10/28/22 12/03/22 12/02/22 Rx bupropion HCl 200 mg tablet,12 hr 200 mg PO QAM #30 tabs 10/28/22 12/03/22 12/02/22 Rx sustained-release apixaban 5 mg tablet (Eliquis) 5 mg PO BID@0900,2100 #180 tabs 11/03/22 12/03/22 11/30/22 Rx guaifenesin 600 mg tablet, 600 mg PO BID cough/congestion #30 11/25/22 12/03/22 12/02/22 Rx extended release 12 hr tabs sulfamethoxazole 800 1 tab PO BID bronchitis #14 tabs 11/25/22 12/03/22 12/02/22 Rx mg-trimethoprim 160 mg tablet (Bactrim DS) Allergies Allergy/AdvReac Type Severity Reaction Status Date / Time erythromycin base Allergy ALGY-Rash Verified 11/25/22 09:29 PFSH Acute PFSH: Medical History (Updated 11/25/22 @ 09:52 by Juan Larson MD) Acute bronchitis and bronchiolitis Acute exacerbation of CHF (congestive heart failure) Allergic rhinitis due to allergen Asthma Moderate restrictive airway disease on PFT 05/13/2022 Atrial fibrillation with RVR Depression Diastolic CHF Former smoker, stopped smoking in distant past Smoker x 25 years, quit >10 years ago High level of cardiac marker HTN (hypertension) with goal to be determined Hx of colonic polyps colonoscopy 2017 with polys Hyperlipidemia Insomnia Morbid obesity with BMI of 45.0-49.9, adult Rectal bleeding Strain of mid-back Surgical History Hx of appendectomy Hx of colonoscopy with polypectomy total of 4 colonoscopies. Last one was done 6 yrs ago Hx of hysterectomy Family History Sister CAD (coronary artery disease) Stroke Mother Colon cancer Social History Smoking and tobacco status: former smoker (30+ years ago) Alcohol intake: never Substance/Drug Use: never Vitals/I&O/Wt Weight last 48 hrs Weight 247 lb A&P Assessment and plan (1) Hx of colonic polyps: Plan Colonoscopy Attestations Medical Necessity Statement*: home Coding Level of Care Code Acute Code for Chg Fwd Diagnoses Hx of colonic polyps Z86.010
[2022-12-03] MEDS: sodium chloride 0.9% 1,000 ML 30 ML IV (07:11)
[2022-12-03 07:52] VITALS: BP 93/75; PULSE 94; RESP 14; TEMP 36.3; O2SAT 94
[2022-12-03 08:10] VITALS: BP 122/85; PULSE 81; RESP 16; O2SAT 94
[2022-12-03 08:20] VITALS: BP 119/78; PULSE 84; RESP 16; O2SAT 96
--- NOTE | 2022-12-03 16:13 | ANE.PACU2 ---
Inpatient post-anesthesia follow up: Airway intact: Yes Vital signs: Temperature 97.4 F Pulse Rate 84 Respiratory Rate 16 Blood Pressure 119/78 Pulse Oximetry 96 Oxygen Delivery Me thod Room Air Oxygen Flow Rate Fraction of Inspir ed Oxygen Hydration adequate: Yes Nausea and vomiting: No Pain level: 2 Mental status: Baseline
== END 2022-12-03 08:32 | disposition home or self-care (01) ==
PROVIDERS: PCP Family Medicine Adult Medicine; Visit Provider Surgery
PROC: 0DJD8ZZ Inspection of Lower Intestinal Tract, Via Natural or Artificial Opening Endoscopic (ICD-10-PCS; CPT 45378; principal; 2022-12-03 07:30)
DX: K63.5 Polyp of colon (principal); Z86.010 Personal history of colon polyps; K64.8 Other hemorrhoids; I48.91 Unspecified atrial fibrillation; I11.0 Hypertensive heart disease with heart failure; I50.30 Unspecified diastolic (congestive) heart failure; E66.01 Morbid (severe) obesity due to excess calories; Z68.42 Body mass index [BMI] 45.0-49.9, adult; E78.5 Hyperlipidemia, unspecified
CPT/HCPCS: 45385; 88305; J2704; J7030

== ENCOUNTER → 2022-12-09 10:41 | Outpatient (BNVA) | payer MEDICAID, SELFPAY | PROVIDERS: PCP Family Medicine Adult Medicine; Visit Provider Internal Medicine Rheumatology | DX: Z79.899 Other long term (current) drug therapy (principal); M19.90 Unspecified osteoarthritis, unspecified site; R76.8 Other specified abnormal immunological findings in serum; Z11.59 Encounter for screening for other viral diseases; M45.6 Ankylosing spondylitis lumbar region; Z11.1 Encounter for screening for respiratory tuberculosis; M47.816 Spondylosis without myelopathy or radiculopathy, lumbar region | CPT/HCPCS: 36415; 72100; 72202; 73130; 73630; 82306; 83520; 85651; 86140; 86225; 86235; 86376; 86480; 86704; 86803; 86812; 87340; 99204 ==

== ENCOUNTER → 2022-12-16 10:21 | Outpatient (BNVA) | payer MEDICAID, SELFPAY | PROVIDERS: PCP Family Medicine Adult Medicine; Visit Provider Surgery | DX: Z09 Encounter for follow-up examination after completed treatment for conditions other than malignant neoplasm (principal); K64.8 Other hemorrhoids | CPT/HCPCS: 99213 ==

== ENCOUNTER → 2023-01-22 09:29 | Outpatient (BNVA) | payer MEDICAID, SELFPAY | PROVIDERS: PCP Family Medicine Adult Medicine; Visit Provider Internal Medicine Pulmonary Disease | DX: J45.20 Mild intermittent asthma, uncomplicated (principal); E66.01 Morbid (severe) obesity due to excess calories; Z68.42 Body mass index [BMI] 45.0-49.9, adult; J98.4 Other disorders of lung; R76.8 Other specified abnormal immunological findings in serum; Z87.891 Personal history of nicotine dependence | CPT/HCPCS: 99214 ==

== ENCOUNTER → 2023-05-15 11:07 | Outpatient (BNVA) | payer MEDICAID, SELFPAY | PROVIDERS: PCP Family Medicine Adult Medicine; Visit Provider Family Medicine Adult Medicine | DX: R07.89 Other chest pain (principal) | CPT/HCPCS: 71046; 99214 ==

== ENCOUNTER 2023-08-31 15:13 | Emergency (ER) | payer MEDICAID, SELFPAY ==
--- NOTE | 2023-08-31 15:16 | XRR_ITS ---
PROCEDURE INFORMATION: Exam: XR Right Knee Exam date and time: 08/31/2023 3:47 PM Age: 53 years old Clinical indication: Injury or trauma; Fall; Blunt trauma; Knee; Right; Additional info: Fall/injury TECHNIQUE: Imaging protocol: Radiologic exam of the right knee. Views: 3 views. COMPARISON: CR XR tibia fibula RT 2V [id number] 08/31/2023 3:47 PM FINDINGS: Bones/joints: There are mild degenerative changes of the knee joint, predominantly involving the medial joint compartment. No acute fracture. Soft tissues: Normal. XR/XR knee RT 3V* [id number] IMPRESSION: No acute fracture.
[2023-08-31 15:17] VITALS: BP 146/87; PULSE 86; RESP 18; TEMP 36.8; O2SAT 97
--- NOTE | 2023-08-31 15:33 | ED_ITS ---
HPI - Extremity Injury (Lower) General: Chief Complaint: Extremity Injury, Lower Stated Complaint: Fall hurt right knee Time Seen by Provider: 08/31/23 15:29 Source: patient Mode of arrival: wheelchair Limitations: no limitations History of Present Illness: Patient 53-year-old female presents to ED today with complaint of right leg and back pain following 2 separate falls. Patient states a few days ago she accidentally slipped and fell at [facility]. She states she initially injured the right leg and then but believed it would get better on its own. She states she was then walking in her home yesterday when the pain in her right leg caused her leg to buckle thus falling yet again. She is complaining mainly to pain to the right knee but also has pain to her lower back and hip. She has not noticed any bruising. Has not noticed any color or temperature changes to the extremity. No numbness, tingling, loss of sensation. MD complaint: knee injury and leg injury Onset (ago): day(s) Injury: Right: knee Place: home and other ([facility]) Severity: severe Relieving factors: immobilization Exacerbating factors: weight bearing, movement and palpation Context: fall Associated symptoms: Reports inability to bear weight Other symptoms: none Review of Systems Card: Denies: chest pain, palpitations, lightheadedness, syncope or pre- syncope Resp: Denies: dyspnea GI: Denies: nausea or vomiting : Denies: flank pain or hematuria Musc: Reports: back pain, extremity pain and joint pain; Denies: neck pain, extremity swelling, joint swelling, joint redness or joint warmth Neuro: Reports: difficulty walking (secondary to R LE pain); Denies: headache(s), numbness in extremities, weakness in extremities or sensory changes [facility] ED PFSH: Medical History Internal hemorrhoids Left-sided chest wall pain URI with cough and congestion Anterior chest wall pain Atrial fibrillation High risk medication use Inflammatory arthritis Positive JACLYN (antinuclear antibody) Allergic rhinitis due to allergen Hx of colonic polyps colonoscopy 2016 with polys Depression Insomnia Former smoker, stopped smoking in distant past Smoker x 25 years, quit >10 years ago Hyperlipidemia Morbid obesity with BMI of 45.0-49.9, adult Asthma Moderate restrictive airway disease on PFT 05/13/2022 Diastolic CHF HTN (hypertension) with goal to be determined Surgical History Hx of appendectomy Hx of hysterectomy Hx of colonoscopy with polypectomy total of 4 colonoscopies. Last one was done 6 yrs ago Family History Sister CAD (coronary artery disease) Stroke Mother Colon cancer Social History Smoking and tobacco/nicotine status: former use of tobacco/nicotine (30+ years ago) Quit status (tobacco/nicotine): has quit using Year quit tobacco: 1992 Former quit date comment: 0.5 ppd X 25 years Alcohol intake: never Substance/Drug Use: never Physical Exam Const: COMMON NORMALS: no acute distress, patient oriented x3, no limitations, alert and well nourished GENERAL APPEARANCE: cooperative NUTRITIONAL APPEARANCE: obese morbidly obese (BMI 45.7) ORIENTATION/CONSCIOUSNESS: Yes awake, Yes oriented to person, Yes oriented to place and Yes oriented to time HENMT: COMMON NORMALS: normocephalic and atraumatic HEAD & SCALP: normal to inspection, normocephalic and atraumatic Neck/C-Spine: COMMON NORMALS: full ROM CERVICAL SPINE: No Cervical spine tenderness Resp: COMMON NORMALS: normal respiratory effort Cardio: COMMON NORMALS: regular rate and regular rhythm RATE: regular rate RHYTHM: regular rhythm GI: COMMON NORMALS: Normal to inspection, nondistended, normoactive bowel sounds present, Soft to palpation and non-tender PALPATION: Yes Soft to palpation Back/Pelvis: COMMON NORMALS: thoracic and lumbar spine normal to inspection THORACIC SPINE/UPPER BACK: No thoracic spinal tenderness LUMBAR SPINE/LOWER BACK: No lumbar spinal tenderness SACRUM: no ecchymosis, no swelling and tenderness COCCYX: Coccyx tenderness present Extremity: COMMON NORMALS: capillary refill normal, no clubbing, cyanosis or edema, no calf tenderness and no pedal edema GENERAL: Yes normal exam except as noted RIGHT LOWER EXTREMITY: Yes hip joint, Yes knee joint (TTP/edema R lateral knee) Right knee: Yes ROM (limited secondary to pain) and Yes neurovascular exam (normal) and Yes lower leg Right lower leg: Yes inspection (normal gross inspection) and Yes neurovascular exam (normal) Neuro: COMMON NORMALS: patient oriented x3 SENSORIUM/ORIENTATION: Yes alert, Yes oriented to person, Yes oriented to place and Yes oriented to time Skin: TRAUMA: no lacerations or abrasions Course Vital Signs: Vital signs: Vital Signs Temperature 98.3 F 08/31/23 15:17 Pulse Rate 86 08/31/23 15:17 Respiratory Rate 18 08/31/23 15:17 Blood Pressure 146/87 08/31/23 15:17 Pulse Oximetry 97 08/31/23 15:17 Oxygen Delivery Me thod Room Air 08/31/23 15:17 MDM - Extremity Injury (Lower) Medical Decision Making XRs unremarkable. Patient states she believes she can ambulate with the help of crutches so these will be provided. Recommend ice/elevation/rest and follow up w ith PCP in 1-2 weeks for continued pain. Return precautions given. Medical Records I reviewed the patient's medical records. Lab Data Radiology Impressions Knee X-Ray 08/31/23 15:16 IMPRESSION: No acute fracture. Hip/Pelvis X-Ray 08/31/23 15:38 IMPRESSION: No acute findings. Sacrum and Coccyx X-Ray 08/31/23 15:38 IMPRESSION: No acute findings. Tibia/Fibula X-Ray 08/31/23 15:38 IMPRESSION: No acute findings. All radiology interpretation(s) finalized by discharge Discharge Plan Discharge Patient Disposition: Home Clinical Impression: Fall Qualifiers: Encounter type: initial encounter Qualified Code(s): W19.XXXA - Unspecified fall, initial encounter Injury of knee, right Qualifiers: Encounter type: initial encounter Qualified Code(s): S89.91XA - Unspecified injury of right lower leg, initial encounter Condition: Stable Prescriptions: Changed celecoxib 200 mg capsule 200 mg PO Q12H PRN (Reason: pain) Qty: 30 0RF No Action guaifenesin 600 mg tablet extended release 12hr 600 mg PO BID PRN (Reason: cough/congestion) Qty: 60 3RF methocarbamol 750 mg tablet 750 mg PO Q8H Qty: 30 0RF albuterol sulfate [Ventolin HFA] 90 mcg/actuation HFA aerosol inhaler 2 inh inhalation Q8H PRN (Reason: Shortness Of Breath) leflunomide 20 mg tablet 20 mg PO DAILY Qty: 30 3RF Eliquis 5 mg tablet 5 mg PO BID@0900,2100 Qty: 180 3RF Hold Instructions: Resume on 12/06/22. diltiazem HCl 120 mg capsule,extended release 24hr 120 mg PO DAILY Qty: 90 3RF Klor-Con M20 20 mEq tablet,ER particles/crystals 20 meq PO DAILY Qty: 90 3RF Lasix 40 mg tablet 40 mg PO DAILY Qty: 90 3RF doxepin 50 mg capsule 50 mg PO DAILY Qty: 30 3RF escitalopram oxalate 10 mg tablet See Rx Instructions .ROUTE .COMPLEX Qty: 30 0RF Dose Instruction: TAKE 1 TABLET BY MOUTH ONCE DAILY. PATIENT HAS TO HAVE AN APPOINTMENT Rx Instructions: TAKE 1 TABLET BY MOUTH ONCE DAILY. PATIENT HAS TO HAVE AN APPOINTMENT Discharge Orders: Discharge ED (Routine); Ordered 08/31/23 Ordered By: Vera Asencio Referrals: Juan Larson MD [Primary Care Provider] - Activity Restrictions/Additional Instructions: As we discussed you may use the crutches to help with weightbearing. I would like you to ice and elevate the extremity. You may use the DAVON wrap for c ompression and stability. We also spoke about a possible neoprene knee sleeve or Velcro knee sleeve to help as well. I would like you to follow-up with your primary care provider in 1 to 2 weeks if symptoms do not seem to be improving. You may use the prescription Celebrex to help with discomfort. Coding Level of Care Code ED General Studies Program Chair for Karol Esparza
--- NOTE | 2023-08-31 15:38 | XRR_ITS ---
PROCEDURE INFORMATION: Exam: XR Right Tibia and Fibula Exam date and time: 08/31/2023 3:47 PM Age: 53 years old Clinical indication: Injury or trauma; Fall; Blunt trauma; Lower leg; Right TECHNIQUE: Imaging protocol: Radiologic exam of the right tibia and fibula. Views: 2 views. COMPARISON: CR XR foot RT min 3V* [id number] 12/09/2022 11:03 AM FINDINGS: Bones/joints: Normal. Soft tissues: Normal. XR/XR tibia fibula RT 2V [id number] IMPRESSION: No acute findings.
--- NOTE | 2023-08-31 15:38 | XRR_ITS ---
PROCEDURE INFORMATION: Exam: XR Right Hip Exam date and time: 08/31/2023 3:47 PM Age: 53 years old Clinical indication: Injury or trauma; Fall; Blunt trauma (contusions or hematomas); Right; Hip; Additional info: Fall/pain; One view pelvis too please TECHNIQUE: Imaging protocol: Radiologic exam of the right hip. Views: 1 view hip with pelvis when performed. COMPARISON: CR XR sacrum coccyx min 2V [id number] 08/31/2023 3:47 PM FINDINGS: Bones/joints: Unremarkable. No acute fracture. Soft tissues: Unremarkable. XR/XR hip RT 2-3V wo/w pel* [id number] IMPRESSION: No acute findings.
--- NOTE | 2023-08-31 15:38 | XRR_ITS ---
PROCEDURE INFORMATION: Exam: XR Sacrum and Coccyx, 2 or More Views Exam date and time: 08/31/2023 3:47 PM Age: 53 years old Clinical indication: Injury or trauma; Fall; Blunt trauma (contusions or hematomas) TECHNIQUE: Imaging protocol: XR of the sacrum and coccyx, 2 or more views. COMPARISON: CR XR hip RT 2-3V wo/w pel* [id number] 08/31/2023 3:47 PM FINDINGS: Bones/joints: Normal. No acute fracture. Soft tissues: Normal. XR/XR sacrum coccyx min 2V [id number] IMPRESSION: No acute findings.
[2023-08-31] MEDS: morphine 4 mg/mL SDV 1 mL IM (16:09)
[2023-08-31 17:06] VITALS: BP 141/89; PULSE 81; RESP 16; TEMP 36.8; O2SAT 98
== END 2023-08-31 17:01 | disposition home or self-care (01) ==
PROVIDERS: Emergency Provider Physician Assistant; PCP Family Medicine Adult Medicine
DX: S89.91XA Unspecified injury of right lower leg, initial encounter (principal); Z79.01 Long term (current) use of anticoagulants; Z87.891 Personal history of nicotine dependence; E78.5 Hyperlipidemia, unspecified; I11.0 Hypertensive heart disease with heart failure; I50.30 Unspecified diastolic (congestive) heart failure; W01.0XXA Fall on same level from slipping, tripping and stumbling without subsequent striking against object, initial encounter; Y92.512 Supermarket, store or market as the place of occurrence of the external cause
CPT/HCPCS: 72220; 73502; 73562; 73590; 96372; 99284; E0114; J2270

== ENCOUNTER 2023-09-13 16:17 | Emergency (ER) | payer MEDICAID, SELFPAY ==
[2023-09-13 16:23] VITALS: BP 112/79; PULSE 89; RESP 17; TEMP 36.8; O2SAT 93; BMI 45.7
--- NOTE | 2023-09-13 16:46 | W.ED.HA ---
Documented by User: Issac Mcmillan MD 09/13/23 18:01 HPI - Headache General: Chief Complaint: Headache Stated Complaint: headache, trouble staying awake, fainting Time Seen by Provider: 09/13/23 16:28 History of Present Illness: 53-year-old female presents emergency department along with her daughter. Patient explains that she woke up 3 days ago with a headache in the left posterior occipital region. Patient reports it is now a migraine . She says the headache will not entirely go away. She has had some nausea along with it. Patient reports she went and sat down on her couch at home. She started feeling really lightheaded. She felt like she was going to pass out and simultaneously felt a burning sensation throughout her abdomen along with some nausea. She felt like it was hard to stay awake. It resolved within a few minutes. She did not have any numbness, focal weakness, facial drooping, speech changes. She does take diltiazem, doxepin, furosemide. She thinks she has been drinking enough fluids. She is currently out of her escitalopram. One of her grandparents had an aneurysm and this has been making her anxious. She has no personal history of aneurysm. She denies any trauma. No fever or chills. Associated symptoms: Deny chest pain, fever(s), rash or syncope Review of Systems General: Reports: 10 or more systems reviewed and unremarkable except in HPI and below Const: Denies: fever(s), chills or body aches Eyes: Denies: change in vision ENMT: Denies: throat pain Card: Denies: chest pain, edema or syncope Resp: Denies: dyspnea or productive cough GI: Denies: diarrhea : Denies: flank pain, dysuria or urinary frequency Musc: Denies: extremity pain or extremity swelling Skin/Breast: Denies: rash or erythema Neuro: Denies: numbness in extremities, weakness in extremities, lack of coordination or difficulty walking PFS ED PFSH: Medical History Internal hemorrhoids Left-sided chest wall pain URI with cough and congestion Anterior chest wall pain Atrial fibrillation High risk medication use Inflammatory arthritis Positive JACLYN (antinuclear antibody) Allergic rhinitis due to allergen Hx of colonic polyps colonoscopy 2016 with polys Depression Insomnia Former smoker, stopped smoking in distant past Smoker x 25 years, quit >10 years ago Hyperlipidemia Morbid obesity with BMI of 45.0-49.9, adult Asthma Moderate restrictive airway disease on PFT 05/13/2022 Diastolic CHF HTN (hypertension) with goal to be determined Surgical History Hx of appendectomy Hx of hysterectomy Hx of colonoscopy with polypectomy total of 4 colonoscopies. Last one was done 6 yrs ago Family History Sister CAD (coronary artery disease) Stroke Mother Colon cancer Social History Smoking and tobacco/nicotine status: former use of tobacco/nicotine (30+ years ago) Quit status (tobacco/nicotine): has quit using Year quit tobacco: 1992 Former quit date comment: 0.5 ppd X 25 years Alcohol intake: never Substance/Drug Use: never Physical Exam Const: COMMON NORMALS: no limitations, alert and well nourished EXAM LIMITATIONS: no altered mental status HENMT: COMMON NORMALS: normocephalic, atraumatic and external ears normal HEAD & SCALP: normocephalic and atraumatic EXTERNAL EAR: Yes external ears normal MOUTH: no muffled voice Eye: COMMON NORMALS: EOMs intact bilaterally, conjunctivae normal and no scleral icterus CONJUNCTIVA: Yes conjunctivae normal OTHER: Pupils equal round reactive to light. Neck/C-Spine: COMMON NORMALS: no JVD GENERAL: Yes normal visual inspection and Yes trachea midline Resp: COMMON NORMALS: normal respiratory effort, No use of accessory muscles and clear to auscultation bilaterally AUSCULTATION: clear to auscultation bilaterally Cardio: COMMON NORMALS: no JVD, regular rate and regular rhythm RATE: regular rate RHYTHM: regular rhythm GI: COMMON NORMALS: Soft to palpation and non-tender PALPATION: Yes Soft to palpation and No Guarding due to palpation present (GI) Back/Pelvis: OTHER: Diffuse myofascial tenderness from the occipital condyles down through the paraspinal tissues of the C,T and L-spine. No meningeal signs. Extremity: COMMON NORMALS: normal to inspection Neuro: COMMON NORMALS: moves all extremities, no focal motor deficits and no sensory deficits noted SENSORIUM/ORIENTATION: Yes alert SPEECH: speech normal Psych: COMMON NORMALS: mental status grossly normal, Normal thought process present, cooperative and speech normal SPEECH: Yes normal speech MOOD & AFFECT: Yes Blunted affect present THOUGHT PROCESS: Normal thought process present Skin: COMMON NORMALS: no rashes or lesions noted, turgor normal and no jaundice GENERAL SKIN EXAM: no rashes or lesions noted and turgor normal Course ED course: Sign out at 1800 pending labs/imaging/re-eval to Dr Foster. Vital Signs: Vital signs: Vital Signs Temperature 98.3 F 09/13/23 16:23 Pulse Rate 89 09/13/23 16:23 Respiratory Rate 17 09/13/23 16:23 Blood Pressure 112/79 09/13/23 16:23 Pulse Oximetry 93 09/13/23 16:23 Oxygen Delivery Me thod Room Air 09/13/23 16:23 MDM - Headache Medical Decision Making Differential diagnosis includes migraine headache, cervicalgia, myofascial pain syndrome, medication side effect (diltiazem, doxepin, furosemide male contribute to orthostasis/lightheadedness), UTI, paroxysmal arrhythmia, escitalopram withdrawal, tension headache, glycemic abnormality, dehydration, orthostasis. This does not sound like PE, TIA, meningitis, or ACS. Patient is worried about a ruptured aneurysm-- I think this is very low probability. She is on anticoagulation for afib/stroke prevention. We can do a CT head w/o but I wounldn't chris it with CTA or LP if neg. Will provide toradol, iv tylenol, ivf, orphenadrine, and some compazine. Vitals reassuring. Lab Data 09/13/23 17:42 09/13/23 17:[address] 09/13/23 16:48 IMPRESSION: No acute intracranial abnormality. Laboratory Results WBC 8.42 10^3/uL (3.29-11.43) 09/13/23 17:42 RBC 5.72 10^6/uL (3.85-5.65) H 09/13/23 17:42 Hgb 14.60 g/dL (11.27-16.99) 09/13/23 17:42 Hct 47.2 % (36-47) H 09/13/23 17:42 MCV 82.5 fl (85-98) L 09/13/23 17:42 MCH 25.5 pg (27-33) L 09/13/23 17:42 MCHC 30.9 g/dL (30-55) 09/13/23 17:42 RDW 14.4 % (12.1-15.1) 09/13/23 17:42 Plt Count 140 10^3/cmm (157-399) L 09/13/23 17:42 MPV 9.2 fL (7.4-10.4) 09/13/23 17:42 Neut % (Auto) 71.5 % 09/13/23 17:42 Lymph % (Auto) 19.1 % 09/13/23 17:42 Braxton % (Auto) 6.2 % 09/13/23 17:42 Eos % (Auto) 0.1 % 09/13/23 17:42 Baso % (Auto) 1.0 % 09/13/23 17:42 Neut # (Auto) 6.02 10^3/uL (1.8-7.7) 09/13/23 17:42 Lymph # (Auto) 1.6 10^3/uL (0.8-4.8) 09/13/23 17:42 Braxton # (Auto) 0.5 10^3/uL (0.2-0.9) 09/13/23 17:42 Eos # (Auto) 0.0 10^3/uL (0.0-0.8) 09/13/23 17:42 Baso # (Auto) 0.1 10^3/uL (0.0-0.1) 09/13/23 17:42 Nucleated RBC % (auto) 0 % 09/13/23 17:42 Nucleated RBCs # 0.0 /100WBC 09/13/23 17:42 Sodium 137 mmol/L (136-145) 09/13/23 17:42 Potassium 4.2 mmol/L (3.5-5.1) 09/13/23 17:42 Chloride 97 mmol/L (98-107) L 09/13/23 17:42 Carbon Dioxide 27 mmol/L (22-29) 09/13/23 17:42 Anion Gap 17.2 (5-19) 09/13/23 17:42 BUN 12 mg/dL (6-20) 09/13/23 17:42 Creatinine 0.8 mg/dL (0.5-0.9) 09/13/23 17:42 GFR Calculation 74.5 mL/min (90-130) L 09/13/23 17:42 Glucose 147 mg/dL (65-115) H 09/13/23 17:42 Calculated Osmolality 286 mOsm/kg (285-295) 09/13/23 17:42 Calcium 9.5 mg/dL (8.5-10.5) 09/13/23 17:42 Total Bilirubin 0.7 mg/dL (0.15-1.2) 09/13/23 17:42 AST 40 U/L (0-32) H 09/13/23 17:42 ALT 43 U/L (0-33) H 09/13/23 17:42 Alkaline Phosphatase 100 U/L (35-105) 09/13/23 17:42 Total Protein 8.3 g/dL (6.6-8.7) 09/13/23 17:42 Albumin 4.6 g/dL (3.5-5.2) 09/13/23 17:42 Globulin 3.7 g/dL (1.3-4.6) 09/13/23 17:42 XR interpretation done by ED provider, pending radiology final review Discharge Plan Discharge Patient Disposition: Home Clinical Impression: Episodic lightheadedness Headache Qualifiers: Headache type: cervicogenic headache Qualified Code(s): G44.86 - Cervicogenic headache Condition: Stable Prescriptions: New escitalopram oxalate 10 mg tablet 10 mg PO DAILY Qty: 90 0RF Discontinued escitalopram oxalate 10 mg tablet See Rx Instructions .ROUTE .COMPLEX Qty: 30 0RF Dose Instruction: TAKE 1 TABLET BY MOUTH ONCE DAILY. PATIENT HAS TO HAVE AN APPOINTMENT Rx Instructions: TAKE 1 TABLET BY MOUTH ONCE DAILY. PATIENT HAS TO HAVE AN APPOINTMENT No Action guaifenesin 600 mg tablet extended release 12hr 600 mg PO BID PRN (Reason: cough/congestion) Qty: 60 3RF methocarbamol 750 mg tablet 750 mg PO Q8H Qty: 30 0RF albuterol sulfate [Ventolin HFA] 90 mcg/actuation HFA aerosol inhaler 2 inh inhalation Q8H PRN (Reason: Shortness Of Breath) leflunomide 20 mg tablet 20 mg PO DAILY Qty: 30 3RF Eliquis 5 mg tablet 5 mg PO BID@0900,2100 Qty: 180 3RF Hold Instructions: Resume on 12/06/22. diltiazem HCl 120 mg capsule,extended release 24hr 120 mg PO DAILY Qty: 90 3RF Klor-Con M20 20 mEq tablet,ER particles/crystals 20 meq PO DAILY Qty: 90 3RF Lasix 40 mg tablet 40 mg PO DAILY Qty: 90 3RF doxepin 50 mg capsule 50 mg PO DAILY Qty: 30 3RF celecoxib 200 mg capsule 200 mg PO Q12H PRN (Reason: pain) Qty: 30 0RF Discharge Orders: Discharge ED (Routine); Ordered 09/13/23 Ordered By: Deborah Foster Referrals: Juan Larson MD [Primary Care Provider] - 4-7 days Discharge Diet: Usual diet Discharge Activity: Resume usual activity Patient Instructions: Acute Headache (ED), Pain Management Activity Restrictions/Additional Instructions: Please read all discharge instructions and abide by recommendations and return precautions. Make an appointment to follow-up with your primary care doctor as directed for follow-up. Return to ER if getting worse or other emergent symptoms. Coding Level of Care Code ED Shipping Team Leader for Chg Fwd Documented by User: Deborah Foster MD 09/13/23 18:58 HPI - Headache General: Chief Complaint: Headache Stated Complaint: headache, trouble staying awake, fainting Time Seen by Provider: 09/13/23 16:28 PFSH ED PFSH: Medical History Internal hemorrhoids Left-sided chest wall pain URI with cough and congestion Anterior chest wall pain Atrial fibrillation High risk medication use Inflammatory arthritis Positive JACLYN (antinuclear antibody) Allergic rhinitis due to allergen Hx of colonic polyps colonoscopy 2017 with polys Depression Insomnia Former smoker, stopped smoking in distant past Smoker x 25 years, quit >10 years ago Hyperlipidemia Morbid obesity with BMI of 45.0-49.9, adult Asthma Moderate restrictive airway disease on PFT 05/13/2022 Diastolic CHF HTN (hypertension) with goal to be determined Surgical History Hx of appendectomy Hx of hysterectomy Hx of colonoscopy with polypectomy total of 4 colonoscopies. Last one was done 6 yrs ago Family History Sister CAD (coronary artery disease) Stroke Mother Colon cancer Social History Smoking and tobacco/nicotine status: former use of tobacco/nicotine (30+ years ago) Quit status (tobacco/nicotine): has quit using Year quit tobacco: 1992 Former quit date comment: 0.5 ppd X 25 years Alcohol intake: never Substance/Drug Use: never Course Vital Signs: Vital signs: Vital Signs Temperature 98.3 F 09/13/23 16:23 Pulse Rate 89 09/13/23 16:23 Respiratory Rate 17 09/13/23 16:23 Blood Pressure 112/79 09/13/23 16:23 Pulse Oximetry 93 09/13/23 16:23 Oxygen Delivery Me thod Room Air 09/13/23 16:23 MDM - Headache Medical Decision Making Differential diagnosis includes migraine headache, cervicalgia, myofascial pain syndrome, medication side effect (diltiazem, doxepin, furosemide male contribute to orthostasis/lightheadedness), UTI, paroxysmal arrhythmia, escitalopram withdrawal, tension headache, glycemic abnormality, dehydration, orthostasis. This does not sound like PE, TIA, meningitis, or ACS. Patient is worried about a ruptured aneurysm-- I think this is very low probability. She is on anticoagulation for afib/stroke prevention. We can do a CT head w/o but I wounldn't chris it with CTA or LP if neg. Will provide toradol, iv tylenol, ivf, orphenadrine, and some compazine. Vitals reassuring. Took patient over from Dr. Mtz pending head CT with plan of discharge her headache has improved here she is follow-up with PCP and return if worsening she understands agrees to plan Lab Data 09/13/23 17:42 09/13/23 17:[address] 09/13/23 16:48 IMPRESSION: No acute intracranial abnormality. Laboratory Results WBC 8.42 10^3/uL (3.29-11.43) 09/13/23 17:42 RBC 5.72 10^6/uL (3.85-5.65) H 09/13/23 17:42 Hgb 14.60 g/dL (11.27-16.99) 09/13/23 17:42 Hct 47.2 % (36-47) H 09/13/23 17:42 MCV 82.5 fl (85-98) L 09/13/23 17:42 MCH 25.5 pg (27-33) L 09/13/23 17:42 MCHC 30.9 g/dL (30-55) 09/13/23 17:42 RDW 14.4 % (12.1-15.1) 09/13/23 17:42 Plt Count 140 10^3/cmm (157-399) L 09/13/23 17:42 MPV 9.2 fL (7.4-10.4) 09/13/23 17:42 Neut % (Auto) 71.5 % 09/13/23 17:42 Lymph % (Auto) 19.1 % 09/13/23 17:42 Braxton % (Auto) 6.2 % 09/13/23 17:42 Eos % (Auto) 0.1 % 09/13/23 17:42 Baso % (Auto) 1.0 % 09/13/23 17:42 Neut # (Auto) 6.02 10^3/uL (1.8-7.7) 09/13/23 17:42 Lymph # (Auto) 1.6 10^3/uL (0.8-4.8) 09/13/23 17:42 Braxton # (Auto) 0.5 10^3/uL (0.2-0.9) 09/13/23 17:42 Eos # (Auto) 0.0 10^3/uL (0.0-0.8) 09/13/23 17:42 Baso # (Auto) 0.1 10^3/uL (0.0-0.1) 09/13/23 17:42 Nucleated RBC % (auto) 0 % 09/13/23 17:42 Nucleated RBCs # 0.0 /100WBC 09/13/23 17:42 Sodium 137 mmol/L (136-145) 09/13/23 17:42 Potassium 4.2 mmol/L (3.5-5.1) 09/13/23 17:42 Chloride 97 mmol/L (98-107) L 09/13/23 17:42 Carbon Dioxide 27 mmol/L (22-29) 09/13/23 17:42 Anion Gap 17.2 (5-19) 09/13/23 17:42 BUN 12 mg/dL (6-20) 09/13/23 17:42 Creatinine 0.8 mg/dL (0.5-0.9) 09/13/23 17:42 GFR Calculation 74.5 mL/min (90-130) L 09/13/23 17:42 Glucose 147 mg/dL (65-115) H 09/13/23 17:42 Calculated Osmolality 286 mOsm/kg (285-295) 09/13/23 17:42 Calcium 9.5 mg/dL (8.5-10.5) 09/13/23 17:42 Total Bilirubin 0.7 mg/dL (0.15-1.2) 09/13/23 17:42 AST 40 U/L (0-32) H 09/13/23 17:42 ALT 43 U/L (0-33) H 09/13/23 17:42 Alkaline Phosphatase 100 U/L (35-105) 09/13/23 17:42 Total Protein 8.3 g/dL (6.6-8.7) 09/13/23 17:42 Albumin 4.6 g/dL (3.5-5.2) 09/13/23 17:42 Globulin 3.7 g/dL (1.3-4.6) 09/13/23 17:42 Discharge Plan Discharge Patient Disposition: Home Clinical Impression: Episodic lightheadedness Headache Qualifiers: Headache type: cervicogenic headache Qualified Code(s): G44.86 - Cervicogenic headache Condition: Stable Prescriptions: New escitalopram oxalate 10 mg tablet 10 mg PO DAILY Qty: 90 0RF Discontinued escitalopram oxalate 10 mg tablet See Rx Instructions .ROUTE .COMPLEX Qty: 30 0RF Dose Instruction: TAKE 1 TABLET BY MOUTH ONCE DAILY. PATIENT HAS TO HAVE AN APPOINTMENT Rx Instructions: TAKE 1 TABLET BY MOUTH ONCE DAILY. PATIENT HAS TO HAVE AN APPOINTMENT No Action guaifenesin 600 mg tablet extended release 12hr 600 mg PO BID PRN (Reason: cough/congestion) Qty: 60 3RF methocarbamol 750 mg tablet 750 mg PO Q8H Qty: 30 0RF albuterol sulfate [Ventolin HFA] 90 mcg/actuation HFA aerosol inhaler 2 inh inhalation Q8H PRN (Reason: Shortness Of Breath) leflunomide 20 mg tablet 20 mg PO DAILY Qty: 30 3RF Eliquis 5 mg tablet 5 mg PO BID@0900,2100 Qty: 180 3RF Hold Instructions: Resume on 12/06/22. diltiazem HCl 120 mg capsule,extended release 24hr 120 mg PO DAILY Qty: 90 3RF Klor-Con M20 20 mEq tablet,ER particles/crystals 20 meq PO DAILY Qty: 90 3RF Lasix 40 mg tablet 40 mg PO DAILY Qty: 90 3RF doxepin 50 mg capsule 50 mg PO DAILY Qty: 30 3RF celecoxib 200 mg capsule 200 mg PO Q12H PRN (Reason: pain) Qty: 30 0RF Discharge Orders: Discharge ED (Routine); Ordered 09/13/23 Ordered By: Deborah Foster Referrals: Juan Larson MD [Primary Care Provider] - 4-7 days Discharge Diet: Usual diet Discharge Activity: Resume usual activity Patient Instructions: Acute Headache (ED), Pain Management Activity Restrictions/Additional Instructions: Please read all discharge instructions and abide by recommendations and return precautions. Make an appointment to follow-up with your primary care doctor as directed for follow-up. Return to ER if getting worse or other emergent symptoms. Coding Level of Care Code ED Shipping Team Leader for Karol Esparza
--- NOTE | 2023-09-13 16:48 | CTR_ITS ---
PROCEDURE INFORMATION: Exam: CT Head Without Contrast Exam date and time: 09/13/2023 5:08 PM Age: 53 years old Clinical indication: Pain; Headache not specified; Additional info: Headache for 3 days TECHNIQUE: Imaging protocol: Computed tomography of the head without contrast. Radiation optimization: All CT scans at this facility use at least one of these dose optimization techniques: automated exposure control; mA and/or kV adjustment per patient size (includes targeted exams where dose is matched to clinical indication); or iterative reconstruction. COMPARISON: CR XR cervical spine 3V* [id number] 03/01/2020 2:51 PM RADIATION DOSE METRICS: Total DLP (mGy-cm): 1275.28 FINDINGS: Brain: Normal. No hemorrhage. Unremarkable white matter. No mass effect. Cerebral ventricles: No ventriculomegaly. Paranasal sinuses: Visualized sinuses are unremarkable. No fluid levels. Mastoid air cells: Visualized mastoid air cells are well aerated. Bones: Unremarkable. No acute fracture. Soft tissues: Unremarkable. CT/CT head wo con* [id number] IMPRESSION: No acute intracranial abnormality.
[2023-09-13] MEDS: orphenadrine 30 mg/mL Inj 2 mL 60 MG IVP (17:44)
[2023-09-13] MEDS: ketorolac 30 mg/mL INJ 15 MG IVP (17:45)
[2023-09-13] MEDS: prochlorperazine 10 mg/2 mL Inj 5 MG IVP (17:45)
[2023-09-13] MEDS: acetaminophen 1,000 MG/100 ML PIGGYBACK 400 MG IV (17:46)
[2023-09-13] MEDS: sodium chloride 0.9% 1,000 ML 999 ML IV (17:47)
[2023-09-13 17:49] LABS: Basophils # 0.1 10^3/uL (0.0-0.1); Eosinophils % 0.1 %; Hematocrit 47.2 % (36-47); Lymphocytes # 1.6 10^3/uL (0.8-4.8); Lymphocytes % 19.1 %; Mean Corpuscular HGB Conc 30.9 g/dL (30-55); Mean Corpuscular Hemoglobin 25.5 pg (27-33); Mean Corpuscular Volume 82.5 fl (85-98); Mean Platelet Volume 9.2 fL (7.4-10.4); Monocytes # 0.5 10^3/uL (0.2-0.9); Monocytes % 6.2 %; Neutrophils # 6.02 10^3/uL (1.8-7.7); Neutrophils % 71.5 %; Nucleated Red Blood Cells % 0 %; Platelet Count 140 10^3/cmm (157-399); Red Blood Count 5.72 10^6/uL (3.85-5.65); Red Cell Distribution Width 14.4 % (12.1-15.1); White Blood Count 8.42 10^3/uL (3.29-11.43)
[2023-09-13 18:08] LABS: Alanine Aminotransferase 43 U/L (0-33); Albumin Level 4.6 g/dL (3.5-5.2); Alkaline Phosphatase 100 U/L (35-105); Anion Gap 17.2 (5-19); Aspartate Amino Transferase 40 U/L (0-32); Blood Urea Nitrogen 12 mg/dL (6-20); Calcium 9.5 mg/dL (8.5-10.5); Carbon Dioxide 27 mmol/L (22-29); Chloride 97 mmol/L (98-107); Creatinine Clr Calc Pharmacy 94.6013; Globulin 3.7 g/dL (1.3-4.6); Glomerular Filtration Rate 74.5 mL/min (90-130); Glucose 147 mg/dL (65-115); Osmolality Calculated 286 mOsm/kg (285-295); Potassium 4.2 mmol/L (3.5-5.1); Sodium 137 mmol/L (136-145); Total Bilirubin 0.7 mg/dL (0.15-1.2); Total Protein 8.3 g/dL (6.6-8.7)
[2023-09-13 19:18] VITALS: BP 121/81; PULSE 81; RESP 16; TEMP 36.8; O2SAT 95
== END 2023-09-13 19:20 | disposition home or self-care (01) ==
PROVIDERS: Emergency Medicine; Emergency Provider Emergency Medicine; PCP Family Medicine Adult Medicine
DX: R42 Dizziness and giddiness (principal); G44.86 Cervicogenic headache; Z79.01 Long term (current) use of anticoagulants; Z87.891 Personal history of nicotine dependence; E78.5 Hyperlipidemia, unspecified; I11.0 Hypertensive heart disease with heart failure; I50.30 Unspecified diastolic (congestive) heart failure
CPT/HCPCS: 70450; 80053; 85025; 96374; 96375; 99285; J0131; J0780; J1885; J2360; J7030

== ENCOUNTER 2023-09-23 20:00 | Outpatient (CLI) | payer MEDICAID, SELFPAY | END 2023-09-23 20:01 | disposition home or self-care (01) | LOC: SLEEP 20:56 | PROVIDERS: PCP Family Medicine Adult Medicine; Visit Provider Family Medicine Adult Medicine | DX: G47.33 Obstructive sleep apnea (adult) (pediatric) (principal); G47.36 Sleep related hypoventilation in conditions classified elsewhere | CPT/HCPCS: 95810 ==

== ENCOUNTER → 2023-09-24 16:32 | Outpatient (BNVA) | payer MEDICAID, SELFPAY | PROVIDERS: PCP Family Medicine Adult Medicine | DX: R06.00 Dyspnea, unspecified (principal) | CPT/HCPCS: 71046 ==

== ENCOUNTER 2023-10-16 09:19 | Outpatient (CLI) | payer MEDICAID, SELFPAY ==
--- NOTE | 2023-10-16 10:15 | CT_ITS ---
WS: [id number] CT scan of the chest without IV contrast, additional two-dimensional coronal and sagittal reconstruct ion was performed. 10/16/2023 Clinical Data: chest pain with abnormal LLL exam and normal CXR Comparison: CT chest, 09/23/2022 DLP: 613.[address] scans at [facility] use at least one of these dose optimization techniques: automated e xposure control; mA and/or kV adjustment per patient size (includes targeted exams where dose is matc hed to clinical indication); or iterative reconstruction. Findings: The patchy opacity in the posterior aspect of the right lower lobe, #45 of 58, has not changed. Proba quinten this opacity represents minimal scarring from previous inflammatory disease. The previous periphe ral ground glass opacity in the right lower lobe seen best on image 22 from 09/23/2022 is no longer pre sent. No nodules, masses or effusions are seen. The heart size is normal with no pericardial effusion. The pulmonary arterial system and thoracic aorta demonstrate no abnormalities or dilatations. There is no axillary or significant mediastinal adenopathy. The upper abdomen demonstrates no abnormalities CT/CT chest wo con [id number] Impression: 1. Minimal patchy opacity in posterior aspect of right lower lobe, unchanged, p robably represents old inflammatory change. 2. Previous peripheral groundglass opacity in the posterior aspect of the right lower lobe is no longer present. 3. Negative for acute cardiopulmonary disease.
== END 2023-10-16 09:20 | disposition home or self-care (01) ==
LOC: RAD 09:20
PROVIDERS: PCP Family Medicine Adult Medicine; Visit Provider Family Medicine Adult Medicine
DX: J98.4 Other disorders of lung (principal); R07.89 Other chest pain; Z87.891 Personal history of nicotine dependence; G47.33 Obstructive sleep apnea (adult) (pediatric)
CPT/HCPCS: 71250

== ENCOUNTER → 2023-10-22 09:06 | Outpatient (BNVA) | payer MEDICAID, SELFPAY | PROVIDERS: PCP Family Medicine Adult Medicine; Visit Provider Internal Medicine Critical Care Medicine | DX: R06.09 Other forms of dyspnea (principal); J98.4 Other disorders of lung; I50.32 Chronic diastolic (congestive) heart failure; J45.20 Mild intermittent asthma, uncomplicated; J68.3 Other acute and subacute respiratory conditions due to chemicals, gases, fumes and vapors; G47.33 Obstructive sleep apnea (adult) (pediatric); E66.01 Morbid (severe) obesity due to excess calories; Z68.42 Body mass index [BMI] 45.0-49.9, adult; Z71.82 Exercise counseling; Z71.89 Other specified counseling | CPT/HCPCS: 99214 ==

== ENCOUNTER 2023-11-02 13:59 | Outpatient (CLI) | payer MEDICAID, SELFPAY ==
[2023-11-02 14:47] LABS: Estmated Average Glucose 120; Hemoglobin A1C 5.8 % (4.0-6.0)
[2023-11-02 14:51] LABS: Alanine Aminotransferase 21 U/L (0-33); Albumin Level 4.3 g/dL (3.5-5.2); Alkaline Phosphatase 82 U/L (35-105); Anion Gap 14.3 (5-19); Aspartate Amino Transferase 21 U/L (0-32); Blood Urea Nitrogen 13 mg/dL (6-20); Calcium 9.3 mg/dL (8.5-10.5); Carbon Dioxide 31 mmol/L (22-29); Chloride 101 mmol/L (98-107); Glucose 86 mg/dL (65-115); Osmolality Calculated 293 mOsm/kg (285-295); Potassium 4.3 mmol/L (3.5-5.1); Sodium 142 mmol/L (136-145); Total Bilirubin 0.2 mg/dL (0.15-1.2); Total Protein 7.3 g/dL (6.6-8.7)
== END 2023-11-02 14:00 | disposition home or self-care (01) ==
PROVIDERS: PCP Family Medicine Adult Medicine; Visit Provider Pediatrics
DX: E66.01 Morbid (severe) obesity due to excess calories (principal); Z68.42 Body mass index [BMI] 45.0-49.9, adult
CPT/HCPCS: 36415; 80053; 83036

== ENCOUNTER → 2023-11-16 15:00 | Outpatient (BNVA) | payer MEDICAID, SELFPAY | PROVIDERS: PCP Family Medicine Adult Medicine; Visit Provider Internal Medicine Cardiovascular Disease | DX: R06.02 Shortness of breath (principal); I48.0 Paroxysmal atrial fibrillation; I11.0 Hypertensive heart disease with heart failure; I50.32 Chronic diastolic (congestive) heart failure; E78.5 Hyperlipidemia, unspecified; J44.9 Chronic obstructive pulmonary disease, unspecified; Z87.891 Personal history of nicotine dependence | CPT/HCPCS: 36415; 80048; 83880; 99214 ==

== ENCOUNTER 2024-01-24 12:59 | Emergency (ER) | payer MEDICAID, SELFPAY ==
[2024-01-24 13:11] VITALS: BP 145/85; PULSE 98; RESP 15; TEMP 37; O2SAT 93; BMI 45.7
--- NOTE | 2024-01-24 13:35 | XRR_ITS ---
PROCEDURE INFORMATION: Exam: XR Chest Exam date and time: 01/24/2024 2:00 PM Age: 53 years old Clinical indication: Shortness of breath; Patient HX: PT arrives pov with complaint of ringing in ears, painful ears, cough, congestion, sore throat and dizzy. PT states this has been ongoing x2 weeks. PT states she saw her pcp 1 month ago for same sore throat and was prescribed abx. PT states is not getting better. PT concerned it is her tonsils. ; Additional info: SOB TECHNIQUE: Imaging protocol: Radiologic exam of the chest. Views: 1 view. COMPARISON: CT chest wo con [id number] 10/16/2023 9:34 AM FINDINGS: Lungs: Unremarkable. No consolidation. Pleural spaces: Unremarkable. No pleural effusion. No pneumothorax. Heart/Mediastinum: Unremarkable. No cardiomegaly. Bones/joints: Unremarkable. XR/XR chest 1V portable [id number] IMPRESSION: No acute findings.
--- NOTE | 2024-01-24 13:55 | W.ED.URI ---
Documented by User: LEANN Roach 01/24/24 17:47 HPI - URI/Sore Throat General: Chief Complaint: Upper Respiratory Infection Stated Complaint: dizzzy, ears and throat hurts Time Seen by Provider: 01/24/24 13:18 Source: patient Mode of arrival: ambulatory Limitations: no limitations History of Present Illness: Patient is a 53-year-old female who presents to the emergency department complaining of dizziness onset today. She states that for the past few weeks she has been dealing with upper respiratory symptoms including ear pain, congestion, sinus pain, sore throat, and some shortness of breath. She states she tried to get in with primary care but he has been out, so she presents today as she was worried from the dizziness. She also notes acute onset of tinnitus. Dizziness started while she was lying flat, stated it did get worse when she stood up. Pertinent past medical history includes hypertension, hyperlipidemia, anxiety and depression, lupus, A-fib, and CHF. She is not reporting any other focal neurological deficits or symptoms. She notes that a couple weeks ago she was started on antibiotics for what she was told with tonsillitis, but actually got worse after finishing course of antibiotics. She comes that she feels like her throat is closing, her vitals are stable at this time and does not appear to be in active respiratory distress. No reported drooling, high fevers, chest pains, or other symptoms at this time. She has not tried anything [id number] for her dizziness. MD elicited complaint: other (Dizziness) Onset (ago): hour(s) Consistency: constant Severity: moderate Able to tolerate fluids by mouth: Yes Exacerbating factors: changing head position Associated symptoms: Reports ear or mastoid pain, nasal congestion and sinus pain; Deny abdominal pain, chills, chest pain, diarrhea, fever(s), headache(s), nausea or vomiting Treatments prior to arrival: none Related Data Previous Rx's Medication Instructions Recorded diltiazem HCl 120 mg 120 mg PO DAILY #90 caps 03/30/23 capsule,extended release 24 hr furosemide 40 mg tablet (Lasix) 40 mg PO DAILY #90 tabs 03/30/23 potassium chloride 20 mEq 20 meq PO DAILY #90 tabs 03/30/23 tablet,extended release(part/cryst) (Klor-Con M) levalbuterol tartrate 45 2 inh inhalation Q6H #15 grams 10/22/23 mcg/actuation aerosol inhaler (Xopenex HFA) apixaban 5 mg tablet (Eliquis) 5 mg PO BID@0900,2100 #180 tabs 10/27/23 metformin 500 mg tablet,extended 500 mg PO BID #30 tabs 11/03/23 release 24hr (osmotic) bupropion HCl 150 mg 24 hr tablet, 150 mg PO QAM #30 tabs 12/21/23 extended release fluconazole 150 mg tablet 150 mg PO DAILY 1 dose #1 tab 12/21/23 escitalopram oxalate 20 mg tablet See Rx Instructions .Route 12/24/23 .COMPLEX #30 tabs cetirizine 10 mg tablet (Zyrtec) 10 mg PO DAILY PRN allergy 01/24/24 symptoms #20 tabs meclizine 50 mg tablet 50 mg PO DAILY PRN dizziness #30 01/24/24 tabs prednisone 20 mg tablet 60 mg (3 x 20 mg) PO ONCE 5 days 01/24/24 #15 tabs doxepin 50 mg capsule 50 mg PO DAILY #30 caps 01/25/24 Allergies Allergy/AdvReac Type Severity Reaction Status Date / Time erythromycin base Allergy ALGY-Rash Verified 12/21/23 09:40 Review of Systems General: Reports: 10 or more systems reviewed and unremarkable except in HPI and below Const: Denies: fever(s), chills or fatigue Eyes: Denies: change in vision ENMT: Reports: throat pain, ear or mastoid pain, tinnitus, nasal discharge, nasal congestion and sinus pain; Denies: uvular edema, enlarged tonsils or odynophagia Card: Denies: chest pain, palpitations, swelling of feet/ankles or lightheadedness Resp: Reports: dyspnea; Denies: productive cough or wheezing GI: Denies: abdominal pain, nausea, vomiting, diarrhea or constipation : Denies: flank pain, difficulty voiding, dysuria or urinary frequency Musc: Denies: neck pain, back pain or joint pain Skin/Breast: Denies: rash Neuro: Reports: dizziness; Denies: headache(s), numbness in extremities, weakness in extremities, lack of coordination, frequent falls, behavioral changes, Slurred speech present, seizure-like activity or involuntary movements PFS ED PFSH: Medical History Pre-diabetes Internal hemorrhoids Anxiety and depression Severe obstructive sleep apnea-hypopnea syndrome Left-sided chest wall pain Atrial fibrillation High risk medication use Inflammatory arthritis Positive JACLYN (antinuclear antibody) Allergic rhinitis due to allergen Hx of colonic polyps colonoscopy 2016 with polys Insomnia Former smoker, stopped smoking in distant past Smoker x 25 years, quit >10 years ago Hyperlipidemia Morbid obesity with BMI of 45.0-49.9, adult Asthma Moderate restrictive airway disease on PFT 05/13/2022 Diastolic CHF HTN (hypertension) with goal to be determined Surgical History Hx of appendectomy Hx of hysterectomy Hx of colonoscopy with polypectomy total of 4 colonoscopies. Last one was done 6 yrs ago Family History Sister CAD (coronary artery disease) Stroke Mother Colon cancer Social History Smoking and tobacco/nicotine status: former use of tobacco/nicotine Quit status (tobacco/nicotine): has quit using Year quit tobacco: 1992 Former quit date comment: 0.5 ppd X 25 years Alcohol intake: never Substance/Drug Use: never Physical Exam Const: COMMON NORMALS: no acute distress, patient oriented x3, no limitations, alert and well nourished NUTRITIONAL APPEARANCE: obese morbidly obese ORIENTATION/CONSCIOUSNESS: Yes awake HENMT: COMMON NORMALS: normocephalic, atraumatic, hearing grossly normal bilaterally, external ears normal, EAC's normal, TM's normal bilaterally, Normal external nose present, Normal nasal mucous membranes and turbinates present, moist oral mucous membranes and oropharynx normal HEAD & SCALP: normocephalic and atraumatic NOSE: Normal external nose present and Normal nasal mucous membranes and turbinates present EXTERNAL EAR: Yes external ears normal EXTERNAL AUDITORY CANAL: EAC's normal TYMPANIC MEMBRANE: TM's normal bilaterally THROAT: no uvular edema Eye: COMMON NORMALS: EOMs intact bilaterally and conjunctivae normal CONJUNCTIVA: Yes conjunctivae normal Neck/C-Spine: COMMON NORMALS: full ROM, supple and no meningeal signs Resp: COMMON NORMALS: normal respiratory effort, No retractions, No use of accessory muscles and clear to auscultation bilaterally AUSCULTATION: clear to auscultation bilaterally Cardio: COMMON NORMALS: regular rate, regular rhythm, S1 normal heart sound present, S2 normal heart sound present, No gallops present (Cardio), No murmurs present (Cardio) and No rub (Cardio) RATE: regular rate RHYTHM: regular rhythm HEART SOUNDS: S1 normal heart sound present and S2 normal heart sound present Extremity: COMMON NORMALS: normal to inspection, full ROM and capillary refill normal Neuro: COMMON NORMALS: patient oriented x3, CN's II-XII intact bilaterally, moves all extremities, no focal motor deficits and no sensory deficits noted SENSORIUM/ORIENTATION: Yes alert MENINGEAL SIGNS: Yes no meningeal signs Skin: COMMON NORMALS: no rashes or lesions noted GENERAL SKIN EXAM: no rashes or lesions noted Course Vital Signs: Vital signs: Vital Signs Temperature 98.6 F 01/24/24 13:11 Pulse Rate 95 01/24/24 15:24 Respiratory Rate 15 01/24/24 13:11 Blood Pressure 152/91 01/24/24 15:24 Pulse Oximetry 94 01/24/24 15:24 Oxygen Delivery Me thod Room Air 01/24/24 13:11 MDM - URI/Sore Throat Medical Decision Making Patient presented for multiple weeks of upper respiratory symptoms, however most concerning was dizziness beginning today. She did finish around antibiotics couple weeks ago this did not help her condition. Her vitals on arrival were normal. Physical examination overall was normal, specifically her HEENT exam as there was no signs of peritonsillar abscess, otitis infection, or concerns for bacterial sinusitis. Her lab work today was normal, chest x-ray unremarkable. She has not tried any other therapies aside from the antibiotics, and actually notes improvement of her symptoms after being given meclizine and a steroid shot here. Informed her to begin taking meclizine for dizziness, as favorable diagnosis at this time is BPPV, other differential diagnosis includes M?ni?re's disease or vestibular neuritis. Encouraged her to limit her salt intake and drink plenty of fluids, also for her sinus symptoms to begin treating conservatively for things such as allergies or eustachian tube dysfunction. Offered her Flonase but she states she would rather take prednisone by mouth, so sent short prescription for this. Encouraged her to take Mucinex [id number] and/or Zyrtec. All other questions and concerns addressed, return precautions were given she is comfortable with discharge home at this time. Lab Data 01/24/24 13:51 01/24/24 13:51 Radiology Impressions Chest X-Ray 01/24/24 13:35 IMPRESSION: No acute findings. Laboratory Results WBC 9.15 10^3/uL (3.29-11.43) 01/24/24 13:51 RBC 5.49 10^6/uL (3.85-5.65) 01/24/24 13:51 Hgb 14.40 g/dL (11.27-16.99) 01/24/24 13:51 Hct 45.5 % (36-47) 01/24/24 13:51 MCV 82.9 fl (85-98) L 01/24/24 13:51 MCH 26.2 pg (27-33) L 01/24/24 13:51 MCHC 31.6 g/dL (30-55) 01/24/24 13:51 RDW 15.2 % (12.1-15.1) H 01/24/24 13:51 Plt Count 273 10^3/cmm (157-399) 01/24/24 13:51 MPV 8.9 fL (7.4-10.4) 01/24/24 13:51 Neut % (Auto) 68.5 % 01/24/24 13:51 Lymph % (Auto) 23.7 % 01/24/24 13:51 Harper % (Auto) 4.8 % 01/24/24 13:51 Eos % (Auto) 1.9 % 01/24/24 13:51 Baso % (Auto) 0.7 % 01/24/24 13:51 Neut # (Auto) 6.27 10^3/uL (1.8-7.7) 01/24/24 13:51 Lymph # (Auto) 2.2 10^3/uL (0.8-4.8) 01/24/24 13:51 Harper # (Auto) 0.4 10^3/uL (0.2-0.9) 01/24/24 13:51 Eos # (Auto) 0.2 10^3/uL (0.0-0.8) 01/24/24 13:51 Baso # (Auto) 0.1 10^3/uL (0.0-0.1) 01/24/24 13:51 Nucleated RBC % (auto) 0 % 01/24/24 13:51 Nucleated RBCs # 0.0 /100WBC 01/24/24 13:51 Sodium 142 mmol/L (136-145) 01/24/24 13:51 Potassium 4.2 mmol/L (3.5-5.1) 01/24/24 13:51 Chloride 100 mmol/L (98-107) 01/24/24 13:51 Carbon Dioxide 30 mmol/L (22-29) H 01/24/24 13:51 Anion Gap 16.2 (5-19) 01/24/24 13:51 BUN 12 mg/dL (6-20) 01/24/24 13:51 Creatinine 1.1 mg/dL (0.5-0.9) H 01/24/24 13:51 GFR Calculation 51.6 mL/min (90-130) L 01/24/24 13:51 Glucose 113 mg/dL (65-115) 01/24/24 13:51 Calculated Osmolality 295 mOsm/kg (285-295) 01/24/24 13:51 Calcium 8.9 mg/dL (8.5-10.5) 01/24/24 13:51 Total Bilirubin 0.3 mg/dL (0.15-1.2) 01/24/24 13:51 AST 21 U/L (0-32) 01/24/24 13:51 ALT 20 U/L (0-33) 01/24/24 13:51 Alkaline Phosphatase 86 U/L (35-105) 01/24/24 13:51 Total Protein 7.4 g/dL (6.6-8.7) 01/24/24 13:51 Albumin 4.2 g/dL (3.5-5.2) 01/24/24 13:51 Globulin 3.2 g/dL (1.3-4.6) 01/24/24 13:51 Coronavirus (PCR) Negative (Negative) 01/24/24 13:56 Influenza A (PCR) Negative (Negative) 01/24/24 13:56 Influenza Type B (PCR) Negative (Negative) 01/24/24 13:56 RSV (PCR) Negative (Negative) 01/24/24 13:56 Group A Strep Rapid Negative (Negative) 01/24/24 13:56 All radiology interpretation(s) finalized by discharge Discharge Plan Discharge Patient Disposition: Home Clinical Impression: Benign paroxysmal positional vertigo Qualifiers: Laterality: bilateral Qualified Code(s): H81.13 - Benign paroxysmal vertigo, bilateral Chronic sinusitis Qualifiers: Sinusitis location: unspecified location Qualified Code(s): J32.9 - Chronic sinusitis, unspecified Condition: Stable Prescriptions: New cetirizine [Zyrtec] 10 mg tablet 10 mg PO DAILY PRN (Reason: allergy symptoms) Qty: 20 0RF prednisone 20 mg tablet 60 mg PO ONCE 5 Days Qty: 15 0RF meclizine 50 mg tablet 50 mg PO DAILY PRN (Reason: dizziness) Qty: 30 0RF No Action levalbuterol tartrate [Xopenex HFA] 45 mcg/actuation HFA aerosol inhaler 2 inh inhalation Q6H Qty: 15 3RF fluconazole 150 mg tablet 150 mg PO DAILY Qty: 1 0RF Rx Instructions: administer on day 1 of therapy bupropion HCl 150 mg tablet extended release 24 hr 150 mg PO QAM Qty: 30 1RF diltiazem HCl 120 mg capsule,extended release 24hr 120 mg PO DAILY Qty: 90 3RF Klor-Con M20 20 mEq tablet,ER particles/crystals 20 meq PO DAILY Qty: 90 3RF Lasix 40 mg tablet 40 mg PO DAILY Qty: 90 3RF Eliquis 5 mg tablet 5 mg PO BID@0900,2100 Qty: 180 3RF Hold Instructions: Resume on 12/06/22. metformin 500 mg tablet extended release 24 hr 500 mg PO BID Qty: 30 0RF escitalopram oxalate 20 mg tablet See Rx Instructions .ROUTE .COMPLEX Qty: 30 2RF Dose Instruction: TAKE ONE TABLET BY MOUTH DAILY for FOR ANXIETY Rx Instructions: TAKE ONE TABLET BY MOUTH DAILY for FOR ANXIETY doxepin 50 mg capsule 50 mg PO DAILY Qty: 30 3RF Discharge Orders: Discharge ED (Routine); Ordered 01/24/24 Ordered By: Geremias Candelaria Referrals: Juan Larson MD [Primary Care Provider] - Patient Instructions: Benign Paroxysmal Positional Vertigo (ED) Activity Restrictions/Additional Instructions: Labs and imaging today were normal. Zyrtec for any potential allergies, prednisone as prescribed. Take meclizine for your dizziness. Drink plenty of fluids, limit salt intake. You may also try [id number] Flonase. Close follow-up with primary care as discussed, return for any new or worsening. 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 [employer] Documented by User: Chuckie Villeda DO 01/25/24 14:10 HPI - URI/Sore Throat General: Chief Complaint: Upper Respiratory Infection Stated Complaint: dizzzy, ears and throat hurts Time Seen by Provider: 01/24/24 13:18 Related Data Previous Rx's Medication Instructions Recorded diltiazem HCl 120 mg 120 mg PO DAILY #90 caps 03/30/23 capsule,extended release 24 hr furosemide 40 mg tablet (Lasix) 40 mg PO DAILY #90 tabs 03/30/23 potassium chloride 20 mEq 20 meq PO DAILY #90 tabs 03/30/23 tablet,extended release(part/cryst) (Klor-Con M) levalbuterol tartrate 45 2 inh inhalation Q6H #15 grams 10/22/23 mcg/actuation aerosol inhaler (Xopenex HFA) apixaban 5 mg tablet (Eliquis) 5 mg PO BID@0900,2100 #180 tabs 10/27/23 metformin 500 mg tablet,extended 500 mg PO BID #30 tabs 11/03/23 release 24hr (osmotic) bupropion HCl 150 mg 24 hr tablet, 150 mg PO QAM #30 tabs 12/21/23 extended release fluconazole 150 mg tablet 150 mg PO DAILY 1 dose #1 tab 12/21/23 escitalopram oxalate 20 mg tablet See Rx Instructions .Route 12/24/23 .COMPLEX #30 tabs cetirizine 10 mg tablet (Zyrtec) 10 mg PO DAILY PRN allergy 01/24/24 symptoms #20 tabs meclizine 50 mg tablet 50 mg PO DAILY PRN dizziness #30 01/24/24 tabs prednisone 20 mg tablet 60 mg (3 x 20 mg) PO ONCE 5 days 01/24/24 #15 tabs doxepin 50 mg capsule 50 mg PO DAILY #30 caps 01/25/24 Allergies Allergy/AdvReac Type Severity Reaction Status Date / Time erythromycin base Allergy ALGY-Rash Verified 12/21/23 09:40 PFSH ED PFSH: Medical History Pre-diabetes Internal hemorrhoids Anxiety and depression Severe obstructive sleep apnea-hypopnea syndrome Left-sided chest wall pain Atrial fibrillation High risk medication use Inflammatory arthritis Positive JACLYN (antinuclear antibody) Allergic rhinitis due to allergen Hx of colonic polyps colonoscopy 2016 with polys Insomnia Former smoker, stopped smoking in distant past Smoker x 25 years, quit >10 years ago Hyperlipidemia Morbid obesity with BMI of 45.0-49.9, adult Asthma Moderate restrictive airway disease on PFT 05/13/2022 Diastolic CHF HTN (hypertension) with goal to be determined Surgical History Hx of appendectomy Hx of hysterectomy Hx of colonoscopy with polypectomy total of 4 colonoscopies. Last one was done 6 yrs ago Family History Sister CAD (coronary artery disease) Stroke Mother Colon cancer Social History Smoking and tobacco/nicotine status: former use of tobacco/nicotine Quit status (tobacco/nicotine): has quit using Year quit tobacco: 1992 Former quit date comment: 0.5 ppd X 25 years Alcohol intake: never Substance/Drug Use: never Course Vital Signs: Vital signs: Vital Signs Temperature 98.6 F 01/24/24 13:11 Pulse Rate 95 01/24/24 15:24 Respiratory Rate 15 01/24/24 13:11 Blood Pressure 152/91 01/24/24 15:24 Pulse Oximetry 94 01/24/24 15:24 Oxygen Delivery Me thod Room Air 01/24/24 13:11 MDM - URI/Sore Throat Medical Decision Making Patient presented for multiple weeks of upper respiratory symptoms, however most concerning was dizziness beginning today. She did finish around antibiotics couple weeks ago this did not help her condition. Her vitals on arrival were normal. Physical examination overall was normal, specifically her HEENT exam as there was no signs of peritonsillar abscess, otitis infection, or concerns for bacterial sinusitis. Her lab work today was normal, chest x-ray unremarkable. She has not tried any other therapies aside from the antibiotics, and actually notes improvement of her symptoms after being given meclizine and a steroid shot here. Informed her to begin taking meclizine for dizziness, as favorable diagnosis at this time is BPPV, other differential diagnosis includes M?ni?re's disease or vestibular neuritis. Encouraged her to limit her salt intake and drink plenty of fluids, also for her sinus symptoms to begin treating conservatively for things such as allergies or eustachian tube dysfunction. Offered her Flonase but she states she would rather take prednisone by mouth, so sent short prescription for this. Encouraged her to take Mucinex [id number] and/or Zyrtec. All other questions and concerns addressed, return precautions were given she is comfortable with discharge home at this time. Chart reviewed Lab Data 01/24/24 13:51 01/24/24 13:51 Radiology Impressions Chest X-Ray 01/24/24 13:35 IMPRESSION: No acute findings. Laboratory Results WBC 9.15 10^3/uL (3.29-11.43) 01/24/24 13:51 RBC 5.49 10^6/uL (3.85-5.65) 01/24/24 13:51 Hgb 14.40 g/dL (11.27-16.99) 01/24/24 13:51 Hct 45.5 % (36-47) 01/24/24 13:51 MCV 82.9 fl (85-98) L 01/24/24 13:51 MCH 26.2 pg (27-33) L 01/24/24 13:51 MCHC 31.6 g/dL (30-55) 01/24/24 13:51 RDW 15.2 % (12.1-15.1) H 01/24/24 13:51 Plt Count 273 10^3/cmm (157-399) 01/24/24 13:51 MPV 8.9 fL (7.4-10.4) 01/24/24 13:51 Neut % (Auto) 68.5 % 01/24/24 13:51 Lymph % (Auto) 23.7 % 01/24/24 13:51 Harper % (Auto) 4.8 % 01/24/24 13:51 Eos % (Auto) 1.9 % 01/24/24 13:51 Baso % (Auto) 0.7 % 01/24/24 13:51 Neut # (Auto) 6.27 10^3/uL (1.8-7.7) 01/24/24 13:51 Lymph # (Auto) 2.2 10^3/uL (0.8-4.8) 01/24/24 13:51 Harper # (Auto) 0.4 10^3/uL (0.2-0.9) 01/24/24 13:51 Eos # (Auto) 0.2 10^3/uL (0.0-0.8) 01/24/24 13:51 Baso # (Auto) 0.1 10^3/uL (0.0-0.1) 01/24/24 13:51 Nucleated RBC % (auto) 0 % 01/24/24 13:51 Nucleated RBCs # 0.0 /100WBC 01/24/24 13:51 Sodium 142 mmol/L (136-145) 01/24/24 13:51 Potassium 4.2 mmol/L (3.5-5.1) 01/24/24 13:51 Chloride 100 mmol/L (98-107) 01/24/24 13:51 Carbon Dioxide 30 mmol/L (22-29) H 01/24/24 13:51 Anion Gap 16.2 (5-19) 01/24/24 13:51 BUN 12 mg/dL (6-20) 01/24/24 13:51 Creatinine 1.1 mg/dL (0.5-0.9) H 01/24/24 13:51 GFR Calculation 51.6 mL/min (90-130) L 01/24/24 13:51 Glucose 113 mg/dL (65-115) 01/24/24 13:51 Calculated Osmolality 295 mOsm/kg (285-295) 01/24/24 13:51 Calcium 8.9 mg/dL (8.5-10.5) 01/24/24 13:51 Total Bilirubin 0.3 mg/dL (0.15-1.2) 01/24/24 13:51 AST 21 U/L (0-32) 01/24/24 13:51 ALT 20 U/L (0-33) 01/24/24 13:51 Alkaline Phosphatase 86 U/L (35-105) 01/24/24 13:51 Total Protein 7.4 g/dL (6.6-8.7) 01/24/24 13:51 Albumin 4.2 g/dL (3.5-5.2) 01/24/24 13:51 Globulin 3.2 g/dL (1.3-4.6) 01/24/24 13:51 Coronavirus (PCR) Negative (Negative) 01/24/24 13:56 Influenza A (PCR) Negative (Negative) 01/24/24 13:56 Influenza Type B (PCR) Negative (Negative) 01/24/24 13:56 RSV (PCR) Negative (Negative) 01/24/24 13:56 Group A Strep Rapid Negative (Negative) 01/24/24 13:56 Discharge Plan Discharge Patient Disposition: Home Clinical Impression: Benign paroxysmal positional vertigo Qualifiers: Laterality: bilateral Qualified Code(s): H81.13 - Benign paroxysmal vertigo, bilateral Chronic sinusitis Qualifiers: Sinusitis location: unspecified location Qualified Code(s): J32.9 - Chronic sinusitis, unspecified Condition: Stable Prescriptions: New cetirizine [Zyrtec] 10 mg tablet 10 mg PO DAILY PRN (Reason: allergy symptoms) Qty: 20 0RF prednisone 20 mg tablet 60 mg PO ONCE 5 Days Qty: 15 0RF meclizine 50 mg tablet 50 mg PO DAILY PRN (Reason: dizziness) Qty: 30 0RF No Action levalbuterol tartrate [Xopenex HFA] 45 mcg/actuation HFA aerosol inhaler 2 inh inhalation Q6H Qty: 15 3RF fluconazole 150 mg tablet 150 mg PO DAILY Qty: 1 0RF Rx Instructions: administer on day 1 of therapy bupropion HCl 150 mg tablet extended release 24 hr 150 mg PO QAM Qty: 30 1RF diltiazem HCl 120 mg capsule,extended release 24hr 120 mg PO DAILY Qty: 90 3RF Klor-Con M20 20 mEq tablet,ER particles/crystals 20 meq PO DAILY Qty: 90 3RF Lasix 40 mg tablet 40 mg PO DAILY Qty: 90 3RF Eliquis 5 mg tablet 5 mg PO BID@0900,2100 Qty: 180 3RF Hold Instructions: Resume on 12/06/22. metformin 500 mg tablet extended release 24 hr 500 mg PO BID Qty: 30 0RF escitalopram oxalate 20 mg tablet See Rx Instructions .ROUTE .COMPLEX Qty: 30 2RF Dose Instruction: TAKE ONE TABLET BY MOUTH DAILY for FOR ANXIETY Rx Instructions: TAKE ONE TABLET BY MOUTH DAILY for FOR ANXIETY doxepin 50 mg capsule 50 mg PO DAILY Qty: 30 3RF Discharge Orders: Discharge ED (Routine); Ordered 01/24/24 Ordered By: Geremias Candelaria Referrals: Juan Larson MD [Primary Care Provider] - Patient Instructions: Benign Paroxysmal Positional Vertigo (ED) Activity Restrictions/Additional Instructions: Labs and imaging today were normal. Zyrtec for any potential allergies, prednisone as prescribed. Take meclizine for your dizziness. Drink plenty of fluids, limit salt intake. You may also try [id number] Flonase. Close follow-up with primary care as discussed, return for any new or worsening. 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
[2024-01-24 13:59] LABS: Basophils # 0.1 10^3/uL (0.0-0.1); Basophils % 0.7 %; Eosinophils # 0.2 10^3/uL (0.0-0.8); Eosinophils % 1.9 %; Hematocrit 45.5 % (36-47); Lymphocytes # 2.2 10^3/uL (0.8-4.8); Lymphocytes % 23.7 %; Mean Corpuscular HGB Conc 31.6 g/dL (30-55); Mean Corpuscular Hemoglobin 26.2 pg (27-33); Mean Corpuscular Volume 82.9 fl (85-98); Mean Platelet Volume 8.9 fL (7.4-10.4); Monocytes # 0.4 10^3/uL (0.2-0.9); Monocytes % 4.8 %; Neutrophils # 6.27 10^3/uL (1.8-7.7); Neutrophils % 68.5 %; Nucleated Red Blood Cells % 0 %; Platelet Count 273 10^3/cmm (157-399); Red Blood Count 5.49 10^6/uL (3.85-5.65); Red Cell Distribution Width 15.2 % (12.1-15.1); White Blood Count 9.15 10^3/uL (3.29-11.43)
[2024-01-24 14:10] LABS: Rapid Strep A Test Negative (Negative)
[2024-01-24 14:17] LABS: Alanine Aminotransferase 20 U/L (0-33); Albumin Level 4.2 g/dL (3.5-5.2); Alkaline Phosphatase 86 U/L (35-105); Anion Gap 16.2 (5-19); Aspartate Amino Transferase 21 U/L (0-32); Blood Urea Nitrogen 12 mg/dL (6-20); Calcium 8.9 mg/dL (8.5-10.5); Carbon Dioxide 30 mmol/L (22-29); Chloride 100 mmol/L (98-107); Globulin 3.2 g/dL (1.3-4.6); Glomerular Filtration Rate 51.6 mL/min (90-130); Glucose 113 mg/dL (65-115); Osmolality Calculated 295 mOsm/kg (285-295); Potassium 4.2 mmol/L (3.5-5.1); Sodium 142 mmol/L (136-145); Total Bilirubin 0.3 mg/dL (0.15-1.2); Total Protein 7.4 g/dL (6.6-8.7)
[2024-01-24] MEDS: meclizine 25 mg tablet 50 MG PO (14:24)
[2024-01-24] MEDS: dexamethasone 10 mg/mL INJ IM (14:25)
[2024-01-24 14:42] LABS: Covid PCR NEGATIVE (Negative); Influenza A NEGATIVE (Negative); Influenza B NEGATIVE (Negative); Respiratory Syncytial Virus Ce NEGATIVE (Negative)
[2024-01-24 15:24] VITALS: BP 152/91; PULSE 95; O2SAT 94
== END 2024-01-24 15:25 | disposition home or self-care (01) ==
PROVIDERS: Emergency Provider Physician Assistant; PCP Family Medicine Adult Medicine
DX: H81.13 Benign paroxysmal vertigo, bilateral (principal); J32.9 Chronic sinusitis, unspecified; Z11.52 Encounter for screening for COVID-19; Z87.891 Personal history of nicotine dependence; I11.0 Hypertensive heart disease with heart failure; I50.30 Unspecified diastolic (congestive) heart failure; E78.5 Hyperlipidemia, unspecified
CPT/HCPCS: 0241U; 71045; 80053; 85025; 87081; 87880; 96372; 99284; J1100; J8597

== ENCOUNTER 2024-02-01 20:00 | Outpatient (CLI) | payer MEDICAID, SELFPAY | END 2024-02-01 20:01 | disposition home or self-care (01) | LOC: SLEEP 23:42 | PROVIDERS: PCP Family Medicine Adult Medicine; Visit Provider Family Medicine Adult Medicine | DX: G47.33 Obstructive sleep apnea (adult) (pediatric) (principal); Z99.89 Dependence on other enabling machines and devices | CPT/HCPCS: 95811 ==

== ENCOUNTER → 2024-05-16 10:08 | Outpatient (BNVA) | payer MEDICAID, SELFPAY | PROVIDERS: PCP Family Medicine; Visit Provider Nurse Practitioner Family | DX: I48.0 Paroxysmal atrial fibrillation (principal); I10 Essential (primary) hypertension; I50.32 Chronic diastolic (congestive) heart failure; E78.5 Hyperlipidemia, unspecified; J44.9 Chronic obstructive pulmonary disease, unspecified | CPT/HCPCS: 99214 ==

== ENCOUNTER 2024-06-06 10:32 | Outpatient (CLI) | payer MEDICAID, SELFPAY ==
[2024-06-06 11:50] LABS: Alanine Aminotransferase 24 U/L (0-33); Albumin Level 4.3 g/dL (3.5-5.2); Alkaline Phosphatase 82 U/L (35-105); Anion Gap 16.1 (5-19); Aspartate Amino Transferase 22 U/L (0-32); Blood Urea Nitrogen 11 mg/dL (6-20); Calcium 9.2 mg/dL (8.5-10.5); Carbon Dioxide 26 mmol/L (22-29); Chloride 101 mmol/L (98-107); Chol HDL Ratio 3.66 mg/dL (0.0-4.40); Cholesterol 194 mg/dL (0-200); Globulin 3.2 g/dL (1.3-4.6); Glomerular Filtration Rate 86.6 mL/min (90-130); Glucose 120 mg/dL (65-115); HDL Cholesterol 53 mg/dL (60-100); LDL Cholesterol Calculated 120 mg/dL (50-129); LDL HDL Ratio 2.26 RATIO (0.00-3.22); Osmolality Calculated 289 mOsm/kg (285-295); Potassium 4.1 mmol/L (3.5-5.1); Sodium 139 mmol/L (136-145); Thyroid Stimulating Hormone 2.66 uIU/mL (0.27-4.20); Total Bilirubin 0.4 mg/dL (0.15-1.2); Total Protein 7.5 g/dL (6.6-8.7); Triglycerides 107 mg/dL (0-150)
[2024-06-06 14:08] LABS: 25 Hydroxy Vitamin D 21 ng/mL (30-100)
== END 2024-06-06 10:33 | disposition home or self-care (01) ==
LOC: LAB 10:34
PROVIDERS: PCP Family Medicine; Visit Provider Family Medicine
DX: E78.5 Hyperlipidemia, unspecified (principal); I10 Essential (primary) hypertension; E55.9 Vitamin D deficiency, unspecified
CPT/HCPCS: 36415; 80053; 80061; 82306; 84443

== ENCOUNTER 2024-08-08 10:43 | Outpatient (CLI) | payer MEDICAID, SELFPAY | END 2024-08-08 10:44 | disposition home or self-care (01) | LOC: LAB 10:45 | PROVIDERS: PCP Family Medicine; Visit Provider Family Medicine | DX: E66.01 Morbid (severe) obesity due to excess calories (principal) | CPT/HCPCS: 83036 ==

== ENCOUNTER 2024-08-29 13:27 | Outpatient (CLI) | payer MEDICAID, SELFPAY ==
--- NOTE | 2024-08-29 13:33 | MM_ITS ---
WS: [id number] VIEWS: MLO and CC views both breasts. 3D digital tomosynthesis is also included in this exam. No priors. Findings: The breasts are almost entirely fatty. No suspicious mass, tumor calcification or architectural distortion. MM/MM scr BI tomosynthesis [id number] Impression: BI-RADS: 2 - Benign. FOLLOW-UP: 1 Year Follow-up This mammogram was also analyzed by the Computer Aided Detection System R2 Imag e Bleach Tester.
== END 2024-08-29 13:28 | disposition home or self-care (01) ==
LOC: RAD 13:27
PROVIDERS: PCP Family Medicine; Visit Provider Family Medicine
DX: Z12.31 Encounter for screening mammogram for malignant neoplasm of breast (principal)
CPT/HCPCS: 77063; 77067

== ENCOUNTER → 2024-09-05 10:34 | Outpatient (BNVA) | payer MEDICAID, SELFPAY | PROVIDERS: PCP Family Medicine; Visit Provider Family Medicine | DX: R30.0 Dysuria (principal); E11.9 Type 2 diabetes mellitus without complications | CPT/HCPCS: 82043; 87086 ==

== ENCOUNTER → 2024-09-19 08:52 | Outpatient (BNVA) | payer MEDICAID, SELFPAY | PROVIDERS: PCP Family Medicine; Visit Provider Nurse Practitioner Family | DX: I48.91 Unspecified atrial fibrillation (principal); Z79.01 Long term (current) use of anticoagulants; I11.0 Hypertensive heart disease with heart failure; I50.30 Unspecified diastolic (congestive) heart failure; E78.5 Hyperlipidemia, unspecified; J44.9 Chronic obstructive pulmonary disease, unspecified; Z87.891 Personal history of nicotine dependence | CPT/HCPCS: 99213 ==

== ENCOUNTER → 2024-12-26 13:42 | Outpatient (BNVA) | payer MEDICAID, SELFPAY | PROVIDERS: PCP Family Medicine; Visit Provider Internal Medicine Cardiovascular Disease | DX: I48.91 Unspecified atrial fibrillation (principal); Z79.01 Long term (current) use of anticoagulants; I11.0 Hypertensive heart disease with heart failure; I50.30 Unspecified diastolic (congestive) heart failure; E78.5 Hyperlipidemia, unspecified; J44.9 Chronic obstructive pulmonary disease, unspecified; Z87.891 Personal history of nicotine dependence | CPT/HCPCS: 99214 ==

== ENCOUNTER 2025-02-13 14:34 | Outpatient (CLI) | payer MEDICAID, SELFPAY ==
[2025-02-13 15:01] LABS: Hematocrit 44.4 % (36-47); Hemoglobin 14.20 g/dL (11.27-16.99); Mean Corpuscular HGB Conc 32.0 g/dL (30-55); Mean Corpuscular Hemoglobin 26.5 pg (27-33); Mean Corpuscular Volume 82.8 fl (85-98); Nucleated Red Blood Cells % 0 %; Platelet Count 270 10^3/cmm (157-399); Red Blood Count 5.36 10^6/uL (3.85-5.65); White Blood Count 10.50 10^3/uL (3.29-11.43)
[2025-02-13 15:13] LABS: Estmated Average Glucose 108; Hemoglobin A1C 5.4 % (4.0-6.0)
== END 2025-02-13 14:35 | disposition home or self-care (01) ==
LOC: LAB 14:36
PROVIDERS: PCP Family Medicine; Visit Provider Family Medicine
DX: E11.65 Type 2 diabetes mellitus with hyperglycemia (principal); E55.9 Vitamin D deficiency, unspecified; E66.01 Morbid (severe) obesity due to excess calories; Z68.42 Body mass index [BMI] 45.0-49.9, adult; R10.A2 Flank pain, left side; G89.29 Other chronic pain; K59.09 Other constipation; I48.0 Paroxysmal atrial fibrillation; I10 Essential (primary) hypertension
CPT/HCPCS: 36415; 82306; 83036; 85025

== ENCOUNTER 2025-02-21 10:33 | Emergency (ER) | payer MEDICAID, SELFPAY ==
[2025-02-21 10:36] VITALS: BP 134/83; PULSE 99; RESP 17; TEMP 36.8; O2SAT 97; BMI 42.0
--- NOTE | 2025-02-21 10:48 | ECG_ITS ---
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 Measurements Intervals [place] Rate: 90 P: 55 [place]: 135 QRS: -9 QRSD: 86 T: 53 QT: 327 QTc: 402 Interpretive Statements SINUS RHYTHM Compared to ECG 09/29/2022 13:32:45 No significant changes Electronically Signed On 02-23-2025 16:12:23 [employer] by Joe Laughlin M.D. [email or web address] [id number]
--- NOTE | 2025-02-21 10:57 | ED_ITS ---
HPI - Arrhythmia/Palpitations 2 General: Chief Complaint: Arrhythmia/Palpitations Stated Complaint: fatigue, increased hr Time Seen by Provider: 02/21/25 10:56 History of Present Illness: 54-year-old female who presents to the e mergency room with complaints of fatigue and rapid heart rate. She has a known history of atrial fibrillation. Had a near syncopal episode while driving home. She is anticoagulated. She has not taken her Cardizem yet this morning. She takes 180 mg usually around 11:00 each morning she is additionally on Lasix. She has lost about 20 pounds recently since starting on Zepbound. She is not having any chest pain at this time. Patient is quite tearful she became quite scared after nearly passing out. Related Data Previous Rx's ?Medication ?Instructions ?Recorded levalbuterol tartrate 45 2 inh inhalation Q6H #15 gra ms 10/22/23 mcg/actuation aerosol inhaler (Xopenex HFA) BIPAP 16/12cm #1 ea 02/23/24 furosemide 40 mg tablet (Lasix) 40 mg PO DAILY #90 tab s 03/30/24 Held on 02/21/25. Instructions: Resume on 03/03/25. potassium chloride 20 mEq 20 meq PO DAILY #90 tabs 07/17 tablet,extended release(part/cryst) (Klor-Con M) cholecalciferol (vitamin D3) 125 125 mcg PO DAILY #90 caps 06/06/24 mcg (5,000 unit) capsule sertraline 100 mg tablet 100 mg PO DAILY #30 tabs apixaban 5 mg tablet (Eliquis) 5 mg PO BID@0900,2100 # 180 tabs 11/15/24 doxepin 50 mg capsule 50 mg PO DAILY #30 caps 11/23 05/17 diltiazem HCl 180 mg 180 mg PO DAILY #90 caps 10/17 capsule,extended release 24 hr (Cardizem CD) tirzepatide (weight loss) 15 15 mg (0.5 mL) SUBCUT .qw k #2 mL 02/13/25 mg/0.5 mL subcutaneous solution (Zepbound) Allergies Allergy/AdvReac Type Severity Reaction Status Date / Time erythromycin base Allergy ALGY-Rash Verified 02/21/25 10:41 Review of Systems 2 Const: Denies: fever(s) or chills Card: Reports: palpitations; Denies: chest pain Resp: Denies: dyspnea GI: Denies: abdominal pain : Denies: dysuria, urinary frequency or urinary urgency Musc: Denies: neck pain or back pain Skin/Breast: Denies: rash PFSH ED 2 PFSH: Medical History Type 2 diabetes mellitus with hyperglycemia, without long-term current use of insulin Constipation, chronic Restrictive lung disease secondary to obesity PFT 3.. moderate restrictive Vitamin D deficiency Family history of colon cancer in mother Internal hemorrhoids Anxiety and depression failed lexapro and wellbutrin Severe obstructive sleep apnea-hypopnea syndrome BIPAP; sleep study 02.01.24 Paroxysmal atrial fibrillation High risk medication use Inflammatory arthritis Positive JACLYN (antinuclear antibody) Allergic rhinitis due to allergen Insomnia Former smoker, stopped smoking in distant past Smoker x 25 years, quit >15 years ago Hyperlipidemia Morbid obesity with BMI of 45.0-49.9, adult Diastolic CHF HTN (hypertension) with goal to be determined Surgical History Hx of section X 3 Hx of appendectomy Hx of hysterectomy uncertain status of ovaries; done for endometriosis Hx of colonoscopy with polypectomy last colonoscopy 12.03.22--repeat 5yrs due to family hx Family History Sister No problems noted. 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 Physical Exam 2 Const: GENERAL APPEARANCE: cooperative ORIENTATION/CONSCIOUSNESS: Yes awake, Yes oriented to person, Yes oriented to place and Yes oriented to time HENMT: COMMON NORMALS: normocephalic, atraumatic and hearing grossly normal bilaterally HEAD & SCALP: normocephalic and atraumatic Resp: COMMON NORMALS: normal respiratory effort, No retractions, No use of accessory muscles and clear to auscultation bilaterally AUSCULTATION: clear to auscultation bilaterally Cardio: COMMON NORMALS: regular rate and No murmurs present (Cardio) RATE: regular rate RHYTHM: abnormal rhythm irregularly irregular GI: COMMON NORMALS: Soft to palpation and No hepatosplenomegaly present A USCULTATION: Yes normoactive bowel sounds PALPATION: Yes Soft to palpation, No Tenderness to palpation present (GI), No Guarding due to palpation present (GI) and Yes No hepatosplenomegaly present Extremity: COMMON NORMALS: normal to inspection, capillary refill normal, no clubbing, cyanosis or edema, no calf tenderness and no pedal edema Neuro: SENSORIUM/ORIENTATION: Yes oriented to person, Yes oriented to place and Yes oriented to time Skin: COMMON NORMALS: no rashes or lesions noted GENERAL SKIN EXAM: no rashes or lesions noted Course 2 Vital Signs: Vital signs: Vital Signs Temperature 98.2 F 02/21/25 10:36 Pulse Rate 99 02/21/25 10:36 Respiratory Rate 17 02/21/25 10:36 Blood Pressure 134/83 02/21/25 10:36 Pulse Oximetry 97 02/21/25 10:36 Oxygen Delivery Me thod Room Air 02/21/25 10:36 MDM - Arrhythmia/Palpitations Medical Decision Making Patient presents with near syncopal episode related to what by her history sounds like intermittent atrial fibrillation. The initial EKG shows a sinus rhythm however bedside monitor shows 1 atrial fibrillation which is well- controlled. Noted that she was intermittently in and out of A-fib without having any rapid heart rates. Patient monitored for time laboratory test normal EKG chest x-ray normal EKG showed sinus rhythm intermittently she has been in A-fib on the monitor but no rapid heart rates. She is given a modified dose of diltiazem because her blood pressure was 118 systolic she had already taken her Lasix today. Recommend that she hold her Lasix. Resume her regular dose of diltiazem tomorrow we will set her up for a 72-hour Holter monitor and short-term follow-up with cardiology clinic should avoid driving until has followed up with Dr. Zambrano. Medical Records I reviewed the patient's medical records. Lab Data I reviewed the patient's lab results. 02/21/25 10:57 02/21/25 10:57 Laboratory Results WBC 8.90 10^3/uL (3.29-11.43) 02/21/25 10:57 RBC 5.85 10^6/uL (3.85-5.65) H 02/21/25 10:57 Hgb 15.60 g/dL (11.27-16.99) 02/21/25 10:57 Hct 48.2 % (36-47) H 02/21/25 10:57 MCV 82.4 fl (85-98) L 02/21/25 10:57 MCH 26.7 pg (27-33) L 02/21/25 10:57 MCHC 32.4 g/dL (30-55) 02/21/25 10:57 RDW 14.8 % (12.1-15.1) 02/21/25 10:57 Plt Count 291 10^3/cmm (157-399) 02/21/25 10:57 MPV 9.5 fL (7.4-10.4) 02/21/25 10:57 Neut % (Auto) 60.4 % 02/21/25 10:57 Lymph % (Auto) 27.6 % 02/21/25 10:57 [place] % (Auto) 6.0 % 02/21/25 10:57 Eos % (Auto) 4.9 % 02/21/25 10:57 Baso % (Auto) 0.9 % 02/21/25 10:57 Neut # (Auto) 5.37 10^3/uL (1.8-7.7) 02/21/25 10:57 Lymph # (Auto) 2.5 10^3/uL (0.8-4.8) 02/21/25 10:57 [place] # (Auto) 0.5 10^3/uL (0.2-0.9) 02/21/25 10:57 Eos # (Auto) 0.4 10^3/uL (0.0-0.8) 02/21/25 10:57 Baso # (Auto) 0.1 10^3/uL (0.0-0.1) 02/21/25 10:57 Nucleated RBC % (auto) 0 % 02/21/25 10:57 Nucleated RBCs # 0.0 /100WBC 02/21/25 10:57 Sodium 140 mmol/L (136-145) 02/21/25 10:57 Potassium 4.5 mmol/L (3.5-5.1) 02/21/25 10:57 Chloride 101 mmol/L (98-107) 02/21/25 10:57 Carbon Dioxide 26 mmol/L (22-29) 02/21/25 10:57 Anion Gap 17.5 (5-19) 02/21/25 10:57 BUN 12 mg/dL (6-20) 02/21/25 10:57 Creatinine 0.8 mg/dL (0.5-0.9) 02/21/25 10:57 GFR Calculation 74.2 mL/min (90-130) L 02/21/25 10:57 Glucose 123 mg/dL (65-115) H 02/21/25 10:57 Calculated Osmolality 291 mOsm/kg (285-295) 02/21/25 10:57 Calcium 9.7 mg/dL (8.5-10.5) 02/21/25 10:57 Total Bilirubin 0.5 mg/dL (0.15-1.2) 02/21/25 10:57 AST 24 U/L (0-32) 02/21/25 10:57 ALT 16 U/L (0-33) 02/21/25 10:57 Alkaline Phosphatase 89 U/L (35-105) 02/21/25 10:57 Total Protein 8.0 g/dL (6.6-8.7) 02/21/25 10:57 Albumin 4.6 g/dL (3.5-5.2) 02/21/25 10:57 Globulin 3.4 g/dL (1.3-4.6) 02/21/25 10:57 TSH 2.09 uIU/mL (0.27-4.20) 02/21/25 10:57 All radiology interpretation(s) finalized by discharge EKG Data EKG 1: I personally reviewed and interpreted this EKG as follows: Interpretation: EKG 02/21/2025 10:48 AM sinus rhythm rate of 90. [place] 135 QTc [address] changes noted. Compared to EKG 09/29/2022 no significant changes noted. Discharge Plan Discharge Patient Disposition: Home Clinical Impression: Paroxysmal atrial fibrillation Condition: Stable Prescriptions: Held Lasix 40 mg tablet 40 mg PO DAILY Qty: 90 3RF Hold Instructions: Resume on 03/03/25. No Action sertraline 100 mg tablet 100 mg PO DAILY Qty: 30 1RF Rx Instructions: replacing escitalopram and bupropion Zepbound 15 mg/0.5 mL solution 15 mg SUBCUT .qwk Qty: 2 5RF levalbuterol tartrate [Xopenex HFA] 45 mcg/actuation HFA aerosol inhaler 2 inh inhalation Q6H Qty: 15 3RF cholecalciferol (vitamin D3) 125 mcg (5,000 unit) capsule 125 mcg PO DAILY Qty: 90 0RF (DME) BIPAP 16/12cm See Rx Instructions .Route .MEDSUPPLY Qty: 1 0RF Rx Instructions: BIPAP 16/12cm; This Rx is for BIPAP machine and supplies to use as directed Klor-Con M20 20 mEq tablet,ER particles/crystals 20 meq PO DAILY Qty: 90 3RF Eliquis 5 mg tablet 5 mg PO BID@0900,2100 Qty: 180 3RF doxepin 50 mg capsule 50 mg PO DAILY Qty: 30 3RF diltiazem HCl [Cardizem CD] 180 mg capsule,extended release 24hr 180 mg PO DAILY Qty: 90 1RF Rx Instructions: Hold if blood pressure is less than 110/60 Discharge Orders: Discharge ED (Routine); Ordered 02/21/25 Ordered By: Chuckie Villeda Discharge Diet: Usual diet Discharge Activity: Increase activity as tolerated Patient Instructions: Opioid Safety, Pain Management, Patient Portal & Moe Instructions Activity Restrictions/Additional Instructions: Thank you for choosing [facility] for your healthcare needs today. It is very important that you follow up as instructed or that you return to the Emergency Department should you have concerns or if your condition changes or worsens in any way. Emergency department visits are focused on emergent conditions, in some cases you may require further evaluation on an outpatient basis. You were seen in the emergency room with complaints of intermittent rapid heart rate. Your rhythm while in the emergency room varied between the sinus rhythm and atrial fibrillation but the rate was controlled. The laboratory test did not show significant abnormality. Your blood pressure is at the lower end of normal. You were given 120 mg of oral diltiazem while in the emergency room. Recommend you hold your Lasix resume your regular dose of diltiazem tomorrow. Avoid driving until the evaluation is complete. Case management make arrangements for you to follow-up with cardiology. They will also make arrangements for a 72-hour Holter monitor to monitor for breakthrough rapid heart rate. (Please note that included in your discharge packet is information concerning opioid safety and pain management. This information is given to all patients were discharged from the ER regardless of their discharge diagnosis or the medicines they usually take or are prescribed.) Print Language: Cameroonian Coding Level of Care Code ED Mold Maker Apprentice for Karol Esparza
--- OUTSIDE RECORDS SUMMARY | 2025-02-21 10:59 | XMS_ITS | Patient Health Record ---
Author Organization [facility] Address [address] [place] [address] Care Team Providers Care Build And Deployment Engineer Name Role Phone ( [facility] ), PHYSICIAN NOT IDENTIFIED Primary Care Provider Unavailable Mgiuel Covarrubias Unavailable [phone] Allergies Allergen (clinical drug ingredient) Drug/Non Drug Allergy documented on EMR Reaction Allergy Type Onset Date Status erythromycin Erythromycin hives/vomit Drug Allergy Active Reason For Referral No Information Medications Medication SIG (Take, Route, Frequency, Duration) Notes Start Date End Date Status Eliquis 5 MG Tablet as directed Orally Active Potassium 99 MG Tablet 1 tablet Orally Once a day Active Furosemide 40 MG Tablet 1 tablet Orally Once a day Active dilTIAZem HCl 120 MG Tablet 1 tablet before meals Orally Three times a day Active Doxepin HCl 50 MG Capsule 1 capsule at b edtime Orally Once a day Active Sertraline HCl 100 MG Tablet 1 tablet Orally Once a day A ctive Zepbound 10 MG/0.5ML Solution Auto-injector 0.5 mL Subcutaneous Active Vital Signs Heart Rate 71 /min 01/26/2025 Height-cm 157.48 cm 01/26/2025 Blood pressure diastolic 77 mm Hg 01/26/2025 Weight-kg 106.6 kg 01/26/2025 Height 62 in 01/26/2025 Blood pressure systolic 125 mm Hg 01/26/2025 Weight 235 lbs 01/26/2025 BMI 42.98 kg/m2 01/26/2025 Encounters Encounter Location Date Provider Diagnosis [facility] [address] [place] [address] 01/26/2025 Miguel Covarrubias Plan Of Treatment Next Appt Details Provider Name:Miguel Covarrubias , 04/27/2025 12:30:00 PM, [address], [place], [address], Insurance Providers Payer Name Payer Address Payer Phone Subscriber Number Group Number Insured Name Patient Relationship to Insured Coverage Start Date Coverage End Date Medicaid Dental [address] [facility] [address] [place] [address] [id number] JOSE JUAN PULIDO Self - patient is the insured Medicaid [address] [place] [address] [phone] [id number] JOSE JUAN PULIDO Self - patient is the insured Medical (General) History Medical History History ICD Code lupus fibromyalgia unknown heart condition
[2025-02-21 11:05] LABS: Hematocrit 48.2 % (36-47); Hemoglobin 15.60 g/dL (11.27-16.99); Mean Corpuscular HGB Conc 32.4 g/dL (30-55); Mean Corpuscular Hemoglobin 26.7 pg (27-33); Mean Corpuscular Volume 82.4 fl (85-98); Nucleated Red Blood Cells % 0 %; Platelet Count 291 10^3/cmm (157-399); Red Blood Count 5.85 10^6/uL (3.85-5.65); White Blood Count 8.90 10^3/uL (3.29-11.43)
[2025-02-21 11:28] LABS: Alanine Aminotransferase 16 U/L (0-33); Albumin Level 4.6 g/dL (3.5-5.2); Alkaline Phosphatase 89 U/L (35-105); Anion Gap 17.5 (5-19); Aspartate Amino Transferase 24 U/L (0-32); Blood Urea Nitrogen 12 mg/dL (6-20); Calcium 9.7 mg/dL (8.5-10.5); Carbon Dioxide 26 mmol/L (22-29); Chloride 101 mmol/L (98-107); Globulin 3.4 g/dL (1.3-4.6); Glucose 123 mg/dL (65-115); Osmolality Calculated 291 mOsm/kg (285-295); Potassium 4.5 mmol/L (3.5-5.1); Sodium 140 mmol/L (136-145); Total Protein 8.0 g/dL (6.6-8.7)
[2025-02-21 11:39] LABS: Thyroid Stimulating Hormone 2.09 uIU/mL (0.27-4.20)
[2025-02-21] MEDS: dilTIAZem ER (24HR) 120 mg Capsule PO (12:41)
[2025-02-21 12:44] VITALS: BP 118/85; PULSE 86; O2SAT 98
== END 2025-02-21 12:44 | disposition home or self-care (01) ==
PROVIDERS: Emergency Medicine; Emergency Provider Family Medicine
DX: I48.0 Paroxysmal atrial fibrillation (principal); Z79.01 Long term (current) use of anticoagulants; Z87.891 Personal history of nicotine dependence; E78.5 Hyperlipidemia, unspecified; I11.0 Hypertensive heart disease with heart failure; I50.30 Unspecified diastolic (congestive) heart failure; E11.9 Type 2 diabetes mellitus without complications
CPT/HCPCS: 36415; 80053; 84443; 85025; 93005; 99284; J9999